=== PATIENT | female | born 1950 | race Caucasian/White ===

== ENCOUNTER 2017-06-27 09:38 | Emergency (ER) | payer MEDICARE, OTHER ==
--- OUTSIDE RECORDS SUMMARY | 2017-06-27 10:03 | XMS REPORT ---
:1950 External Reference #:[id number] Author Organization [facility] Address [address] [place] [address] Phone [phone] Care Team Providers Name Role Phone Elise Horton MD Care Team Information Product Planner Unavailable Elise Horton MD Primary Care Physician Unavailable Payers Type Date Identification Numbers Payment Provider Subscriber Medicare Primary Policy Number: [id number] [employer] [place] Vikki Jaime PayID: [id number] [place] [address] Commercial Policy Number: [id number] [facility] Vikki Jaime PayID: [id number] [address] [place] [address] Problems Date Description Provider Status Onset: 12/06/2016 Mild intermittent asthma Adela Melton Fenstermacher, Active RPA-C Onset: 02/07/2016 Exacerbation of intermittent Adela Souzastermacher, Active asthma RPA-C Onset: 10/15/2015 Chronic allergic conjunctivitis Adela Melton Fenstermacher, Active RPA-C Onset: 04/16/2015 Mild intermittent asthma, Adela SDenzel Fenstermacher, Active uncomplicated RPA-C Onset: 04/16/2015 Allergic rhinitis Adela Melton Fenstermacher, Active RPA-C Onset: 04/16/2015 Allergic rhinitis due to pollen Adela Maravillaermachewilton, Active RPA-C Family History Date Family Member(s) Problem(s) Comments General Unknown Social History Type Date Description Comments Smoking Patient has never smoked Allergies, Adverse Reactions, Alerts Date Description Reaction Status Severity Comments 10/15/2015 Lotemax active 06/06/2017 Zycor active gives pt leg cramps 12/23/2012 NKDA inactive Medications Medication Date Status Form Strength Qnty SIG Indications Ordering Provider Nasacort Allergy 06/06 Active Aerosol 55mcg/Act 1bott [place] 2 J30.89 Christopher 24H le sprays in Davon Thompson MD each nostril once daily. Pazeo 10/16 Active Solution 0.7% 2.5un Instill 1 its Drop Into Davon Thompson MD The Affected Eye(S) Once Daily as Needed as Directed Levocetirizine 04/16 Active Tablets 5mg 90tab Take One J30.1 Christopher Dihydrochloride /2014 s Tablet By Davon Thompson MD Mouth At Bedtime as Needed Asmanex HFA 04/16 Active Aerosol 100mcg/Ac 13uni Inhale J45.20 t ts Two Puffs Davon Thompson MD By Mouth Twice A Day Montelukast 04/16 Active Tablets 10mg 90tab Take One J30.1 opher Sodium s Tablet By Davon Thompson MD Mouth Every Evening Levothyroxine Active Unknown Sodium /0000 Eye Wash Active Solution Unknown /0000 Acyclovir Active Capsules 200mg take 2 Unknown /0000 capsule by mouth 3 times a day as needed Zovirax Active Cream 5% Unknown /0000 Preser Vision Active Unknown /0000 Vitamin D3 Active Chewtabs 2000Unit once Unknown /0000 daily Lysine HCL Active Tablets 1000mg Unknown /0000 Zinc Active Tablets 50mg Unknown /0000 Vitamin C Active Tablets 1000mg 1 by Unknown /0000 mouth every day Medrol 02/14 Hx TBPK 4mg 21uni take as ts directed Davon Thompson MD - 06/06 Tessalon Perlankush 07/24 Hx Capsules 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 Take with food. Prednisone 02/06 Hx Tablets 5mg 100ta Follow J45.21 bs taper as Davon Thompson MD - directed 05/17 Tessalon 02/06 Hx Capsules 200mg 30cap Swallow J45.21 s whole one Davon Thompson MD - capsule 05/17 by mouth 3x daily Zithromax Z-Sreedhar 02/06 Hx Tablets 250mg 1Pak Take as J45.21 directed Davon Thompson MD - 05/17 Prednisone 01/31 Hx Tablets 10mg 30tab Take 3 s tablets Davon Thompson MD - by mouth 02/06 twice a day for 5 days. Take with food. Pataday 01/31 Hx Solution 0.2% 1bott Instill le one drop Davon Thompson MD - into both 07/24 eyes once daily as needed Pataday 10/14 Hx Solution 0.2% 1bott Instill H10.45 le one drop Davon Thompson MD - into both 10/14 eyes once daily as needed Pazeo 10/14 Hx Solution 0.7% 1unit Instill 1 H10.45 s drop into Davon Thompson MD - affected 02/06 eye(s) by ophthalmi c route once daily as needed 04/16 Hx Solution 0.2% 1unit Instill s 1-2 drops Davon Thompson MD - into 10/14 affected eye(s) once daily as needed Levocetirizine 03/29 Hx Tablets 5mg 90tab Take One Adela SDenzel Dihydrochloride s Tablet By Fenstermache - Mouth At r, RPA-C 04/16 Bedtime as Needed Montelukast 00 Hx Tablets 10mg 90tab 1 take opher Sodium / s one Davon Thompson MD - tablet by 04/16 mouth daily in the evening Acyclovir 00/00 Hx Unknown /0000 - 02/06 Zovirax 00/ Hx Unknown /0000 - 02/06 Levothyroxine 00 Hx Tablets 75mcg Unknown Sodium / - 02/06 Genteal Mild Hx Solution 0.2% Unknown / - 07/24 Stool Softener Hx Tablets 8.6-50mg take 2 Unknown Laxative / tablets - by oral 07/24 route /2016 once daily Proair HFA Hx Aerosol 108(90Bas 8.500 2 puffs Christopher /0000 e) gm every 4 Davon Thompson MD - mcg/Act as needed 12/05 Qvar Hx Aerosol 80mcg/Act inhale 2 Unknown puffs by - inhalatio 10/14 n route times per day Estring Hx Ring 2mg insert 1 vaginal - ring by 02/06 vaginal route every 90 days Tylenol With Hx Tablets 300-30mg as needed Unknown Codeine #3 - 07/24 Moxifloxacin HCL Hx Tablets 400mg one Christoph tablet by Davon Thompson MD - mouth 06/06 every day /2017 x 14 days Acidophilus Hx Capsules 100mg Unknown Probiotic / - 06/06 Fluticasone Hx Suspension 50mcg/Act 16gm Inhale Christopher Propionate /0000 Two Davon Thompson MD - Sprays In 06/06 Nostril Every Day Vital Signs Date Vital Result Comment 06/06/2017 Height 66 inches 5'6" Weight 147.00 lb BMI (Body Mass Index) 23.7 kg/m2 Heart Rate 79 /min Respiratory Rate 16 /min Body Temperature 96.9 F O2 % BldC Oximetry 95 % 12/06/2016 Height 66 inches 5'6" Weight 149.00 lb BMI (Body Mass Index) 24.0 kg/m2 Heart Rate 82 /min Respiratory Rate 16 /min Body Temperature 97.0 F O2 % BldC Oximetry 98 % 07/24/2016 BP Systolic 140 mmHg BP Diastolic 80 mmHg Height 66 inches 5'6" Weight 157.00 lb BMI (Body Mass Index) 25.3 kg/m2 Heart Rate 114 /min Respiratory Rate 22 /min Body Temperature 99.2 F O2 % BldC Oximetry 98 % 05/17/2016 BP Systolic 126 mmHg BP Diastolic 74 mmHg Height 66.5 inches 5'6.50" Weight 157.00 lb BMI (Body Mass Index) 25.0 kg/m2 Heart Rate 65 /min Respiratory Rate 11 /min Body Temperature 97.3 F O2 % BldC Oximetry 98 % 02/07/2016 BP Systolic 167 mmHg BP Diastolic 81 mmHg Height 66 inches 5'6" Weight 153.00 lb BMI (Body Mass Index) 24.7 kg/m2 Heart Rate 76 /min Respiratory Rate 20 /min Body Temperature 98.4 F O2 % BldC Oximetry 98 % 10/15/2015 BP Systolic 122 mmHg BP Diastolic 76 mmHg Height 67 inches 5'7" Weight 150.00 lb BMI (Body Mass Index) 23.5 kg/m2 Heart Rate 92 /min Respiratory Rate 14 /min 04/16/2015 BP Systolic 113 mmHg BP Diastolic 71 mmHg Height 67 inches 5'7" Weight 150.00 lb BMI (Body Mass Index) 23.5 kg/m2 Heart Rate 58 /min Respiratory Rate 16 /min 10/05/2014 BP Systolic 98 mmHg BP Diastolic 61 mmHg Height 67 inches Weight 150.00 lb Heart Rate 61 /min 08/26/2014 BP Systolic 128 mmHg BP Diastolic 71 mmHg Height 67 inches Weight 150.00 lb Heart Rate 62 /min Body Temperature 96.7 F O2 % BldC Oximetry 99 % 05/27/2014 BP Systolic 122 mmHg BP Diastolic 80 mmHg Heart Rate 76 /min 04/27/2014 BP Systolic 114 mmHg BP Diastolic 67 mmHg Height 66 inches Weight 150.00 lb Heart Rate 81 /min 10/22/2013 BP Systolic 118 mmHg BP Diastolic 80 mmHg Heart Rate 64 /min 03/21/2013 BP Systolic 110 mmHg BP Diastolic 76 mmHg Heart Rate 76 /min 09/25/2012 BP Systolic 106 mmHg BP Diastolic 78 mmHg Height 66 inches Weight 145.00 lb 09/25/2012 Heart Rate 80 /min Results Test Date Test Result H/L Range Note Order 06/06/2017 Nitric Oxide <pending> PFT Supplies <pending> PFT With Bronchodilator <pending> Procedures Date CPT Code Description Status 06/06/2017 07593 Nitric Oxide Gas Determination Completed 06/06/2017 16116 Bronchodilation Responsiveness Spirometry Pre/Post Completed Bronchodil Adm 05/10/2017 02102 Allergy Antigens Single Or Multiple Completed 12/15/2016 26002 Allergy Antigens Single Or Multiple Completed 12/06/2016 00766 Nitric Oxide Gas Determination Completed 12/06/2016 13973 Bronchodilation Responsiveness Spirometry Pre/Post Completed Bronchodil Adm 07/07/2016 34430 Allergy Antigens Single Or Multiple Completed 05/17/2016 62513 Bronchodilation Responsiveness Spirometry Pre/Post Completed Bronchodil Adm 10/18/2015 68320 Allergy Antigens Single Or Multiple Completed 07/09/2015 40057 Allergy Antigens Single Or Multiple Completed 04/16/2015 74882 Bronchodilation Responsiveness Spirometry Pre/Post Completed Bronchodil Adm Encounters Type Date Location Provider CPT E/M Dx Office Visit 06/06/2017 2:00p Boeluskinza Dubose RPA-Tosin 06621 J45.20 J30.1 J30.89 H10.45 Office Visit 12/06/2016 2:30p Boeluskinza Dubose RPA-Tosin 61729 J45.20 J30.1 J30.89 H10.45 Office Visit 07/24/2016 10:00a BoelusBoom Alanis RPA-Tosin 88181 J45.31 J06.9 R05 Office Visit 05/17/2016 10:00a Boelus [place] 26772 J45.20 J30.1 J30.89 H10.45 Office Visit 02/07/2016 11:30a Boeluskinza Dubose RPA-Tosin 73369 J45.21 Office Visit 10/15/2015 3:30p Boelus Adela Dubose RPA-Tosin 03793 J30.1 J30.89 H10.45 J45.20 Office Visit 04/16/2015 9:00a Boelus Adela Dubose RPA-Tosin 02415 J30.1 J30.89 J45.20 Plan of Care Future Appointment(s):12/05/2017 10:30 am - PILAR De La Garza at [id number]/06/2017 - Adela Dubose RPA-CJ45.20 Mild intermittent asthma , uncomplicatedComments:Asthma has been stable. Today's PFT is within normal limits. Exhaled nitric oxide level is also normal (13ppb). Continue Asmanex 100mcg as prescribed. Continue Ventolin as needed for breakthrough coughing, wheezing and/or shortness of breath.Follow up:6 months - w/PFT and NIOX prior to libxpB41.1 Allergic rhinitis due to pollenComments:Continue Levocetirizine and Montelukast as prescribed. Patient is experiencing nasal dryness and bleeding. I will have her hold nasal steroids for another week. I have provided sample of Rhinase salinenasal gel to be applied intranasally twice a day. I will give Nasacort in place of Fluticasone and encouraged patient to start with one spray and only increase to two if well tolerated.Follow up:6 months.J30.89 Other allergic rhinitisNew Medication:Nasacort Allergy 24HR 55 mcg/ActComments: I have reviewed environmental controls for house dust and dust mites.Follow up: 6 months.H10.45 Other chronic allergic conjunctivitisComments:Continue Pazeo eye drops as needed for breakthrough eye allergy symptoms.Follow up:6 months.
--- OUTSIDE RECORDS SUMMARY | 2017-06-27 10:03 | XMS REPORT ---
:1950 External Reference #:[id number] Author Organization [facility] Address [address] [place] [address] Phone [phone] Care Team Providers Name Role Phone Elise Prieto M.D. Care Team Information Print Shop Manager Unavailable Payers Type Date Identification Numbers Payment Provider Subscriber Medicare Primary Effective: Policy Number: Medicare - Bswny Enoc Edwards 2016 [id number] [facility] PayID: [id number] [address] [place] [address] [facility] Part B Policy Number: [id number] [facility]ia Edwards Group Name: Jon [address] PayID: [id number] [place] [address] Problems Description No Information Family History Date Family Member(s) Problem(s) Comments Father CAD Father Alzheimer's Disease late 70's Father Cancer, Prostate Mother Osteoporosis no hip fracture, but arm fracture Mother Migraines First Brother CVA First Brother Diabetes borderline Second Brother No Current Problems First Sister Migraines First Sister Hip Replacement Second Sister Hip Replacement Second Sister Obesity had gastric bypass, previously had Diabetes but resolved Paternal Grandfather CAD of AR or CVA in 40's or 50's Paternal Grandmother Alzheimer's Disease possible Maternal Grandfather Diabetes Maternal Grandmother Diverticulitis not sure if other medical problems, in her 70's Maternal Aunts Cancer, Breast maternal great aunt Maternal Aunts Cancer, Lung maternal aunt Social History Type Date Description Comments Pets 1 dog 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 mouth three Blegen, times a day M.D. for 5 days as needed for Outbreak Preservision 07/19 Active Capsules 90cap 1 po bid Elise s Genaro Prieto M.D. Asmanex HFA 03/30 Active Aerosol 100mcg/Ac 2 Puffs Am t And PM, P. rinses Blegen, mouth M.D. afterward Lysine HCL 03/30 Active Tablets 1000mg 1 po qam or bid Genaro Prieto M.D. Zovirax 03/30 Active Cream 5% 10uni Apply 5 ts Times A Day Emiliano For 4 Days CERTIFIED PHYSICAL THERAPIST ASSISTANT-C as Needed For Herpes Rash In Groin Area Levocetirizine Active Tablets 5mg Unknown Dihydrochloride / Montelukast Active Tablets 10mg Unknown Sodium / Pazeo Active Solution 0.7% 1 drop in Unknown /0000 each eye qd- uses prn Levothyroxine Active Tablets 75mcg 30tab Take One Nany Sodium s Tablet By Bandar, Mouth Every M.D., Day R.D. Vitamin D3 Super Active Capsules 2000Unit daily Unknown Strength /0000 Nasacort Allergy Active Aerosol 55mcg/Act 2 sprays in Unknown 24HR /0000 each nostril every day Rhinase Active Gel Unknown /0000 Eye Wash Active Solution 1-3 Times A Unknown Sterile /0000 Day prn Vitamin C Active Tablets 1000mg 1 by mouth Unknown /0000 every day Doxycycline 03/[address] 100mg 2tabs 2 tabs by [id number] Vanessa Hyclate mouth today Emiliano, - CERTIFIED PHYSICAL THERAPIST ASSISTANT-C 06/12 Prednisone 10/11 Hx Tablets 20mg 10tab take 2 tabs s by mouth Emiliano, - every day x CERTIFIED PHYSICAL THERAPIST ASSISTANT-C 12/03 5 days Cephalexin 10/09 Hx Tablets 500mg 21tab take 1 R21 s tablet by Emiliano, - mouth three CERTIFIED PHYSICAL THERAPIST ASSISTANT-C 12/03 times a day x 7 days Bactrim DS 03/28 Hx Tablets 800-160mg 10tab 1 po bid x N39.0 s 5 days Emiliano, - CERTIFIED PHYSICAL THERAPIST ASSISTANT-C 06/22 Mucinex 07/21 Hx Tablets ER 600mg 20tab 1 PO bid J18.9 12HR s For P. - Bronchitis, Blegen, 06/22 With Full M.D. Glass Of Water Azithromycin 07/21 Hx Tablets 250mg 6tabs 2 by mouth J18.9 every day P. - first day Blegen, 06/22 then 1 by M.D. /2016 mouth every day x 4 days Guaifenesin ac 07/19 Hx Syrup 100-10mg/ 120cc 5-10 ML At J06.9 5ML Night as P. - Needed For Blegen, 06/22 Cough- M.D. /2016 Causes Drowsiness Vitamin B-12 03/31 Hx Tablets 1000mcg 1 po qd P. - Blegen, 06/22 M.D. Vitamin C 03/30 Hx Tablets 1000mg 1 po qd to bid P. - Blegen, 06/22 M.D. Vitamin B-12 03/30 Hx Tablets 6000mcg 1 by mouth every day P. - Blegen, 03/31 M.D. Vitamin D3 03/30 Hx Tablets 1000Unit 1-2 po qday P. - Blegen, 06/12 M.D. /2017 Magnesium 03/30 Hx Tablets 500mg 1 po qd P. - Blegen, 06/22 M.D. /2016 Acidophilus 03/30 Hx Tablets 1 Bu qd P. - Blegen, 06/12 M.D. /2017 Calcium 600 03/30 Hx Tablets 600mg 1 po qd P. - Blegen, 06/22 M.D. Genteal Mild 03/30 Hx Solution 0.2% qd to tid prn dry P. - eyes Blegen, 06/12 M.D. Elimite 12/09 Hx Cream 5% 60G apply from head to P. - soles of Blegen, 03/17 feet. wash .. off 8-14 hours later. Mupirocin 11/25 Hx Ointment 2% 22gm apply a 782.9 small Emiliano, - amount to CERTIFIED PHYSICAL THERAPIST ASSISTANT-C 03/30 area(s) daily Benzonatate 11/25 Hx Capsules 200mg 30cap 1 by mouth 786.2 s three times Emiliano, - a day CERTIFIED PHYSICAL THERAPIST ASSISTANT-C 03/30 Azithromycin 04/18 Hx Tablets 250mg 6tabs 2 by mouth 466.0 Janette /2014 every day x K.W. - 1 day, then Teodoro, 05/02 1 by mouth M.D. every day Benzonatate 04/16 Hx Capsules 100mg 60cap 1 or 2 by 466.0 Shawnt s mouth three Irasema Rivera, - times a day CERTIFIED PHYSICAL THERAPIST ASSISTANT-C 05/02 as needed cough Proair HFA 04/14 Hx Aerosol 108(90Bas 8.500 2 puffs 466.0 e) gm every 4-6 Irasema Rivera, - mcg/Act hours as CERTIFIED PHYSICAL THERAPIST ASSISTANT-C 06/12 needed wheezing or shortness of breath Prednisone 04/14 Hx Tablets 50mg 5tabs one pill by 466.0 wnt mouth daily Irasema Rivera, - for 5 days CERTIFIED PHYSICAL THERAPIST ASSISTANT-C 04/24 for breathing Benzonatate 04/14 Hx Capsules 100mg 30cap 1 by mouth 466.0 Shawnt s three times Irasema Rivera, - a day as CERTIFIED PHYSICAL THERAPIST ASSISTANT-C 04/16 needed cough Asmanex 04/14 Hx Aerosol 220mcg/In 1unit 1 puff 466.0 Shawnti Twisthaler h s daily for Irasema Rivera, Metered Doses - breathing CERTIFIED PHYSICAL THERAPIST ASSISTANT-C 05/02 Valacyclovir HCL 02/26 Hx Tablets 1gm 21tab 1 by mouth 053.9 s three times Irasema Rivera, - daily for 7 CERTIFIED PHYSICAL THERAPIST ASSISTANT-C Bactrim DS 05/14 Hx Tablets 800-160mg 14tab 1 po bid x s 7 days P. - Blegen, 03/03 M.D. Zithromax 02/03 Hx Tablets 500mg 3tabs 1 qd x 3 Katelin Tri-Sreedhar days september A. - repeat Bud, 03/18 after 10 F.N.P.C. days if sx persist Amoxicillin 08/08 Hx Tablets 500mg 20tab One Tablet s Two Times A K.W. - Day For 10 Teodoro, 10/14 Days M.D. Augmentin 06/28 Hx Tablets 875mg 20tab one po bid 382.9 s for otitis R. Miguel, - media CERTIFIED PHYSICAL THERAPIST ASSISTANT-C 10/14 Augmentin 02/21 Hx Tablets 875mg 24tab one pill s twice daily Irasema Rivera, - with food CERTIFIED PHYSICAL THERAPIST ASSISTANT-C 06/28 for sinus infection Amoxicillin 11/07 Hx Tablets 500mg 30tab 1 po tid x s 10 days P. - Blegen, 02/21 M.D. Augmentin 07/07 Hx Tablets 500mg;125 20tab one po bid mg s for 10 days P. - Blegen, 11/07 M.D. Docusate Sodium 07/07 Hx Tablets 200mg prn P. - Blegen, 06/12 M.D. /2017 Testosterone 07/07 Hx Cream P. - Blegen, 03/18 M.D. Macrobid 06/17 Hx Capsules 100mg 14cap one bid x7 s days with K.W. - food for Teodoro, 07/07 UTI M.D. /2006 Lidex 02/01 Hx Cream 0.05% 30gm apply to Vanessa affected Veronique, - areas bid M.D. 03/30 Patanol 12/24 Hx Solution 0.1% 5ml One To Two 372.30 gtts OU bid K.WDenzel - roberta Valerio, 03/30 Allergic M.D. Conjunctivi tis Cephalexin 12/17 Hx Capsules 500mg 14cap one tab bid Vanessa mag Piper - M.D. 07/07 Prometrium Hx Capsules ?Dose Unknown / - 03/30 Acyclovir Hx Capsules 400mg 15cap 1 by mouth Elise / s three times P. - a day x 5 Blegen, 02/14 days as M.D. /2016 needed outbreak Rosetta Hx Tablets 180mg 1 PO qd Unknown / - 05/02 Nasonex Hx Unknown / - 05/02 Estradiol/ Hx Unknown Progesterone / Vaginal Cream - 03/30 Vivelle-Dot Hx Patches use patch Unknown twice - weekly 03/30 Fluticasone Hx Suspension 50mcg/Act 2 sprays in Unknown Propionate / each - nostril 06/12 twice daily /2017 Symbicort Hx Aerosol 160-4.5mc Unknown / g/Act - 11/06 Qvar Hx Aerosol 80mcg/Act Unknown - 03/30 Osphena Hx Tablets 60mg Diaz /MD Philipp, - Tsering 07/19 Progesterone Hx Capsules 100mg Diaz Fraser /MD Philipp, - Tsering 07/19 Pataday Hx Solution 0.2% eye drops Jay, 1-2 drops Kang sanchez MD 06/12 allergic eye sx Estring Hx Ring 2mg Unknown - 03/30 Prednisone Hx Tablets 5mg Take 6 Unknown / Tablets - Daily For 3 06/12 Days. /2018 Immunizations CPT Code Status Date Vaccine Lot # [id number] Given 02/22/2017 Influenza Vaccine High Dose PF [id number] 82847 Given 04/13/2016 Pneumovax 23 (PPSV23) 65+ years or high risk 2 to [id number] 65 year old 74793 Given 03/13/2016 Influenza Virus Vaccine, Quadrivalent, 3 Yr > [id number] Quad, Preserv Free 22376 Given 04/14/2015 Prevnar-13 Pneumococcal Conjugate Vaccine [id number] 98938 Given 03/30/2015 Tdap (Adacel) [id number] 90827 Given 02/26/2015 Influenza Virus Vaccine, Quadrivalent, 3 Yr > [id number] Quad, Preserv Free 55363 Given 01/14/2015 Zoster Vaccine [id number] 18617 Given 03/24/2014 Influenza Virus Vaccine, Quadrivalent, 3 Yr > [id number] Quad, Preserv Free 43562 Given 03/13/2012 Influenza Vaccine-Preservative Free 3 Yrs And [id number] Above 30372 Given 02/27/2011 Zoster Vaccine [id number] 67389 Given 09/04/2010 Influenza Vaccine-Preservative Free 3 Yrs And Above Vital Signs Date Vital Result Comment 06/12/2017 BP Systolic 130 mmHg BP Diastolic 62 mmHg Heart Rate 64 /min Body Temperature 98.2 F 03/28/2017 BP Systolic 100 mmHg BP Diastolic 70 mmHg Heart Rate 88 /min Body Temperature 98.5 F Respiratory Rate 14 /min 10/09/2016 Weight 150.00 lb Weight in kg's 68.040 BP Systolic 120 mmHg BP Diastolic 70 mmHg Heart Rate 74 /min Body Temperature 98.5 F Respiratory Rate 16 /min O2 % BldC Oximetry 98 % 06/22/2016 Weight 156.00 lb Weight in kg's 70.762 BP Systolic 114 mmHg BP Diastolic 78 mmHg Heart Rate 68 /min Body Temperature 97.4 F Respiratory Rate 16 /min Height 66 inches 5'6" BMI (Body Mass Index) 25.2 kg/m2 Right Visual Acuity Distance 20/50 corrected Left Visual Acuity Distance 20/50 corrected Both Visual Acuity Distance 20/25 corrected O2 % BldC Oximetry 99 % 03/28/2016 BP Systolic 126 mmHg BP Diastolic 72 mmHg Heart Rate 76 /min Body Temperature 97.9 F Respiratory Rate 18 /min 11/09/2015 Weight 158.00 lb Weight in kg's 71.669 BP Systolic 120 mmHg BP Diastolic 60 mmHg Body Temperature 98.6 F 09/02/2015 BP Systolic 120 mmHg BP Diastolic 68 mmHg Heart Rate 80 /min Body Temperature 98.1 F 07/21/2015 Weight 157.00 lb Weight in kg's 71.215 BP Systolic 120 mmHg BP Diastolic 75 mmHg Heart Rate 84 /min Body Temperature 99.1 F O2 % BldC Oximetry 98 % 07/19/2015 Weight 160.00 lb Weight in kg's 72.576 BP Systolic 90 mmHg BP Diastolic 52 mmHg Heart Rate 89 /min Body Temperature 100.2 F O2 % BldC Oximetry 97 % 03/30/2015 Weight 152.00 lb Weight in kg's 68.947 BP Systolic 118 mmHg BP Diastolic 64 mmHg Heart Rate 66 /min Height 66 inches 5'6" BMI (Body Mass Index) 24.5 kg/m2 11/25/2014 Weight 153.00 lb Weight in kg's 69.401 BP Systolic 140 mmHg BP Diastolic 74 mmHg Heart Rate 64 /min 11/11/2014 Weight 152.00 lb Weight in kg's 68.947 BP Systolic 120 mmHg BP Diastolic 60 mmHg Heart Rate 72 /min 11/06/2014 Weight 153.00 lb Weight in kg's 69.401 BP Systolic 140 mmHg BP Diastolic 70 mmHg Heart Rate 72 /min Body Temperature 97.4 F O2 % BldC Oximetry 98 % 04/18/2014 Weight 154.00 lb Weight in kg's 69.854 BP Systolic 124 mmHg BP Diastolic 70 mmHg Heart Rate 84 /min Body Temperature 98.2 F O2 % BldC Oximetry 97 % 04/14/2014 Weight 154.00 lb Weight in kg's 69.854 BP Systolic 110 mmHg BP Diastolic 70 mmHg Heart Rate 115 /min Body Temperature 98.6 F O2 % BldC Oximetry 98 % 02/26/2014 Weight 151.00 lb Weight in kg's 68.494 BP Systolic 128 mmHg BP Diastolic 78 mmHg Heart Rate 72 /min 06/16/2013 Weight 155.00 lb w/boots Weight in kg's 70.308 BP Systolic 100 mmHg BP Diastolic 58 mmHg Heart Rate 56 /min Body Temperature 100.4 F 02/24/2013 Weight 149.00 lb Weight in kg's 67.586 BP Systolic 112 mmHg BP Diastolic 60 mmHg Heart Rate 84 /min Body Temperature 98.3 F 05/14/2010 Weight 154.00 lb w/shoes Weight in kg's 69.854 BP Systolic 122 mmHg BP Diastolic 70 mmHg Heart Rate 88 /min Body Temperature 98.5 F 07/03/2009 Weight 150.00 lb Weight in kg's 68.040 BP Systolic 94 mmHg BP Diastolic 60 mmHg Heart Rate 76 /min Body Temperature 98.2 F 06/08/2009 Weight 150.00 lb Weight in kg's 68.040 BP Systolic 110 mmHg BP Diastolic 70 mmHg Heart Rate 96 /min 01/28/2009 Weight 138.00 lb Weight in kg's 62.597 BP Systolic 122 mmHg BP Diastolic 80 mmHg Heart Rate 68 /min Body Temperature 98.4 F 06/28/2007 Weight 136.00 lb Weight in kg's 61.690 BP Systolic 120 mmHg BP Diastolic 60 mmHg Heart Rate 68 /min Body Temperature 97.0 F Oral 11/24/2006 Weight 141.50 lb Weight in kg's 64.184 BP Systolic 120 mmHg BP Diastolic 60 mmHg Body Temperature 98.9 F 11/07/2006 Weight 140.50 lb Weight in kg's 63.731 BP Systolic 120 mmHg BP Diastolic 60 mmHg Heart Rate 88 /min Body Temperature 100.2 F oral 07/07/2006 BP Systolic 120 mmHg BP Diastolic 68 mmHg Heart Rate 64 /min Body Temperature 97.2 F Oral 11/04/2004 Weight 153.00 lb Weight in kg's 69.401 BP Systolic 120 mmHg BP Diastolic 70 mmHg Heart Rate 68 /min 06/18/2004 Weight 163.00 lb Weight in kg's 73.937 Body Temperature 96.5 F 02/02/2004 Weight 162.00 lb Weight in kg's 73.483 BP Systolic 134 mmHg BP Diastolic 82 mmHg Heart Rate 77 /min 01/22/2003 Weight 160.00 lb Weight in kg's 72.576 BP Systolic 112 mmHg BP Diastolic 60 mmHg Body Temperature 97.9 F 12/24/2002 Weight 160.00 lb Weight in kg's 72.576 BP Systolic 120 mmHg BP Diastolic 64 mmHg Body Temperature 97.8 F 11/19/2002 Weight 163.00 lb Weight in kg's 73.937 BP Systolic 110 mmHg BP Diastolic 72 mmHg Heart Rate 76 /min 12/17/2001 Weight 158.00 lb BP Systolic 100 mmHg BP Diastolic 60 mmHg Body Temperature 98.4 F 09/03/2001 Weight 157.00 lb BP Systolic 102 mmHg BP Diastolic 62 mmHg Heart Rate 68 /min Body Temperature 98.0 F Respiratory Rate 18 /min Results Test Date Test Result H/L Range Note Urine DIP 06/12/2017 Leukocytes neg Neg Urine Nitrites neg Neg Urobilinogen norm Norm Total Protein, Urine n eg Neg Urine pH 8 High 5-6 Specific [place] 1.000 Low 1.01-1.02 Urine Ketones neg Neg Urine Bilirubin neg Neg Urine Glucose norm Norm Comp Metabolic Panel 06/12/2017 Sodium 139 mmol/L 133-145 Potassium 4.3 mmol/L 3.5-5.0 Chloride 102 mmol/L 101-111 Co2 Carbon Dioxide 32 mmol/L 22-32 Anion Gap 5 mmol/L 2-11 Glucose 86 mg/dL 70-100 Blood Urea Nitrogen 15 mg/dL 6-24 Creatinine 0.65 mg/dL 0.51-0.95 BUN/Creatinine Ratio 23.1 High 8-20 Calcium 10.0 mg/dL 8.6-10.3 Total Protein 6.6 g/dL 6.4-8.9 Albumin 4.4 g/dL 3.2-5.2 Globulin 2.2 g/dL 2-4 Albumin/Globulin Ratio 2.0 1-3 Total Bilirubin 0.30 mg/dL 0.2-1.0 Alkaline Phosphatase 63 U/L 34-104 Alt 18 U/L 7-52 Ast 20 U/L 13-39 Egfr Non- 91.2 >60 Egfr 117.3 >60 1 Laboratory test finding 06/12/2017 TSH (Thyroid Stim Horm) 1.33 mcIU/mL 0.34-5.60 2 Free T4 (Free Thyroxine) 0.91 ng/dL 0.61-1.12 3 Magnesium 2.1 mg/dL 1.9-2.7 4 CBC Auto Diff 06/12/2017 White Blood Count 6.7 10^3/uL 3.5-10.8 Red Blood Count 4.42 10^6/uL 4.0-5.4 Hemoglobin 13.6 g/dL 12.0-16.0 Hematocrit 40 % 35-47 Mean Corpuscular Volume 91 fL 80-97 Mean Corpuscular Hemoglobin 31 pg 27-31 Mean Corpuscular HGB Conc 34 g/dL 31-36 Red Cell Distribution Width 13 % 10.5-15 Platelet Count 270 10^3/uL 150-450 Mean Platelet Volume 9 um3 7.4-10.4 Abs Neutrophils 4.1 10^3/uL 1.5-7.7 Abs Lymphocytes 1.9 10^3/uL 1.0-4.8 Abs Monocytes 0.5 10^3/uL 0-0.8 Abs Eosinophils 0.1 10^3/uL 0-0.6 Abs Basophils 0.1 10^3/uL 0-0.2 Abs Nucleated RBC 0 10^3/uL Granulocyte % 61.2 % 38-83 Lymphocyte % 28.3 % 25-47 Monocyte % 7.6 % 1-9 Eosinophil % 1.8 % 0-6 Basophil % 1.1 % 0-2 Nucleated Red Blood Cells % 0 Laboratory test finding 06/12/2017 Hepatitis C Antibody Nonreactive Nonreactive 5 Lyme Western Blot 06/12/2017 Lyme Disease IgG Ab WB Negative Negative Lyme Disease IgG Bands Present p41, kDa Lyme Disease IgM Ab WB Negative Negative Lyme Disease IgM Bands Present p41, kDa Lyme Disease Interpretation See Comment 6 Laboratory test 10/09/2016 Wound Culture/Sensi SEE RESULT BELOW 7 finding Laboratory test 06/22/2016 TSH (Thyroid Stim Horm) 1.14 mcIU/mL 0.34- 5.60 8 finding Vitamin D Total 25(Oh) 38.2 ng/mL 30-50 9 Comp Metabolic Panel 06/22/2016 Sodium 137 mmol/L 133-145 Potassium 4.5 mmol/L 3.5-5.0 Chloride 100 mmol/L Low 101-111 Co2 Carbon Dioxide 28 mmol/L 22-32 Anion Gap 9 mmol/L 2-11 Glucose 89 mg/dL 70-100 Blood Urea Nitrogen 18 mg/dL 6-24 Creatinine 0.63 mg/dL 0.51-0.95 BUN/Creatinine Ratio 28.6 High 8-20 Calcium 10.1 mg/dL 8.6-10.3 Total Protein 7.1 g/dL 6.4-8.9 Albumin 4.7 g/dL 3.2-5.2 Globulin 2.4 g/dL 2-4 Albumin/Globulin Ratio 2.0 1-3 Total Bilirubin 0.60 mg/dL 0.2-1.0 Alkaline Phosphatase 71 U/L 34-104 Alt 19 U/L 7-52 Ast 22 U/L 13-39 Egfr Non- 94.8 >60 Egfr 122.0 >60 10 Urine DIP 03/28/2016 Leukocytes ++ Neg Urine Nitrites NEG Neg Urobilinogen NORM Norm Total Protein, Urine NEG Neg Urine pH 8 High 5-6 Urine Blood 250 High Neg Specific [place] 1.005 Low 1.01-1.02 Urine Ketones NEG Neg Urine Bilirubin NEG Neg Urine Glucose NORM Norm Laboratory test finding 03/28/2016 Urine Culture And SEE RESULT BELOW 11 Sensitivities Connective Tissue Panel 11/19/2015 Anti-Nuclear Antibody 0.1 U 12 Cyclic Citrullinated Peptide <15.6 U 13 Interpretation See Comment 14 Laboratory test finding 11/19/2015 Rheumatoid Factor <15 IU/mL <15 15 Vitamin D Total 25(Oh) 44.3 ng/mL 30-50 16 Vitamin B12 875 pg/mL 180-914 17 CBC Auto Diff 11/09/2015 White Blood Count 6.0 10^3/uL 3.5-10.8 Red Blood Count 4.27 10^6/uL 4.0-5.4 Hemoglobin 12.9 g/dL 12.0-16.0 Hematocrit 39 % 35-47 Mean Corpuscular Volume 90 fL 80-97 Mean Corpuscular Hemoglobin 30 pg 27-31 Mean Corpuscular HGB Conc 33 g/dL 31-36 Red Cell Distribution Width 13 % 10.5-15 Platelet Count 256 10^3/uL 150-450 Mean Platelet Volume 10 um3 7.4-10.4 Abs Neutrophils 3.6 10^3/uL 1.5-7.7 Abs Lymphocytes 1.6 10^3/uL 1.0-4.8 Abs Monocytes 0.6 10^3/uL 0-0.8 Abs Eosinophils 0.1 10^3/uL 0-0.6 Abs Basophils 0.1 10^3/uL 0-0.2 Abs Nucleated RBC 0 10^3/uL Granulocyte % 60.6 % 38-83 Lymphocyte % 27.0 % 25-47 Monocyte % 9.2 % High 1-9 Eosinophil % 1.9 % 0-6 Basophil % 1.3 % 0-2 Nucleated Red Blood Cells % 0.1 Comp Metabolic Panel 11/09/2015 Sodium 138 mmol/L 133-145 Potassium 4.4 mmol/L 3.5-5.0 Chloride 103 mmol/L 101-111 Co2 Carbon Dioxide 29 mmol/L 22-32 Anion Gap 6 mmol/L 2-11 Glucose 88 mg/dL 70-100 Blood Urea Nitrogen 19 mg/dL 6-24 Creatinine 0.79 mg/dL 0.51-0.95 BUN/Creatinine Ratio 24.1 High 8-20 Calcium 9.8 mg/dL 8.6-10.3 Total Protein 6.6 g/dL 6.4-8.9 Albumin 4.5 g/dL 3.2-5.2 Globulin 2.1 g/dL 2-4 Albumin/Globulin Ratio 2.1 1-3 Total Bilirubin 0.40 mg/dL 0.2-1.0 Alkaline Phosphatase 68 U/L 34-104 Alt 16 U/L 7-52 Ast 20 U/L 13-39 Egfr Non- 73.3 >60 Egfr 94.2 >60 18 Lyme Western Blot 11/09/2015 Lyme Disease IgG Ab WB Negative Negative Lyme Disease IgG Bands Present p41, kDa Lyme Disease IgM Ab WB Negative Negative Lyme Disease IgM Bands Present No bands detecte <SEE NOTE> kDa 19 Lyme Disease Interpretation See Comment 20 Laboratory test finding 11/09/2015 TSH (Thyroid Stim Horm) 2.69 ?IU/mL 0.34-5.60 21 Vitamin D, 1,25 Dihydroxy 86 pg/mL 18-78 22 C Reactive Protein 8.57 mg/L High < 5.00 23 Flu Test A, B, Or A & B,Binaxn 07/19/2015 Influenza A Antigen neg Influenza B Antigen neg Laboratory test finding 03/30/2015 TSH (Thyroid Stim Horm) 0.90 ?IU/mL 0.34-5.60 24 CBC Auto Diff 03/30/2015 White Blood Count 5.4 10^3/uL 4.8-10.8 Red Blood Count 4.42 10^6/uL 4.0-5.4 Hemoglobin 13.7 g/dL 12.0-16.0 Hematocrit 42 % 35-47 Mean Corpuscular Volume 95 fL 80-97 Mean Corpuscular Hemoglobin 31 pg 27-31 Mean Corpuscular HGB Conc 33 g/dL 31-36 Red Cell Distribution Width 13 % 10.5-15 Platelet Count 272 10^3/uL 150-450 Mean Platelet Volume 9 um3 7.4-10.4 Abs Neutrophils 3.1 10^3/uL 1.5-7.7 Abs Lymphocytes 1.7 10^3/uL 1.0-4.8 Abs Monocytes 0.5 10^3/uL 0-0.8 Abs Eosinophils 0.1 10^3/uL 0-0.6 Abs Basophils 0.1 10^3/uL 0-0.2 Abs Nucleated RBC 0 10^3/uL Granulocyte % 57.3 % 38-83 Lymphocyte % 31.3 % 25-47 Monocyte % 8.5 % 1-9 Eosinophil % 1.7 % 0-6 Basophil % 1.2 % 0-2 Nucleated Red Blood Cells % 0 Comp Metabolic Panel 03/30/2015 Sodium 138 mmol/L 133-145 Potassium 4.3 mmol/L 3.5-5.0 Chloride 102 mmol/L 101-111 Co2 Carbon Dioxide 31 mmol/L 22-32 Anion Gap 5 mmol/L 2-11 Glucose 83 mg/dL 70-100 Blood Urea Nitrogen 19 mg/dL 6-24 Creatinine 0.76 mg/dL 0.51-0.95 BUN/Creatinine Ratio 25.0 High 8-20 Calcium 10.0 mg/dL 8.6-10.3 Total Protein 6.7 g/dL 6.4-8.9 Albumin 4.6 g/dL 3.2-5.2 Globulin 2.1 g/dL 2-4 Albumin/Globulin Ratio 2.2 1-3 Total Bilirubin 0.60 mg/dL 0.2-1.0 Alkaline Phosphatase 59 U/L 34-104 Alt 13 U/L 7-52 Ast 19 U/L 13-39 Egfr Non- 76.6 >60 Egfr 98.5 >60 25 Laboratory test finding 03/30/2015 Magnesium 2.0 mg/dL 1.9-2.7 26 Vitamin D Total 25(Oh) 43.7 ng/mL 30-50 27 Vitamin B12 668 pg/mL 180-914 28 Lipid Profile (Trig/Chol/HDL) 03/30/2015 Triglycerides 75 mg/dL 29 Cholesterol 207 mg/dL 30 HDL Cholesterol 72.9 mg/dL 31 LDL Cholesterol 119 mg/dL 32 CBC Auto Diff 03/27/2014 White Blood Count 4.6 10^3/uL Low 4.8-10.8 33 Red Blood Count 4.17 10^6/uL 4.0-5.4 33 Hemoglobin 13.1 g/dL 12.0-16.0 33 Hematocrit 39 % 35-47 33 Mean Corpuscular Volume 94 fL 80-97 33 Mean Corpuscular Hemoglobin 32 pg High 27-31 33 Mean Corpuscular HGB Conc 34 g/dL 31-36 33 Red Cell Distribution Width 13 % 10.5-15 33 Platelet Count 272 10^3/uL 150-450 33 Mean Platelet Volume 9 um3 7.4-10.4 33 Abs Neutrophils 2.6 10^3/uL 1.5-7.7 33 Abs Lymphocytes 1.4 10^3/uL 1.0-4.8 33 Abs Monocytes 0.4 10^3/uL 0-0.8 33 Abs Eosinophils 0.2 10^3/uL 0-0.6 33 Abs Basophils 0.1 10^3/uL 0-0.2 33 Abs Nucleated RBC 0 10^3/uL 33 Granulocyte % 57.2 % 38-83 33 Lymphocyte % 29.8 % 25-47 33 Monocyte % 7.9 % 1-9 33 Eosinophil % 3.4 % 0-6 33 Basophil % 1.7 % 0-2 33 Nucleated Red Blood Cells % 0 33 Laboratory test 03/27/2014 TSH (Thyroid 2.15 IU/mL 0.34-5.60 33, 34 finding Stimulating Horm) Dhea Sulfate <15.0 g/dL <15-157 33, 35 Estradiol < 20.000 pg/mL 33, 36 Insulin Level 4.8 mcIU/mL 2.6 - 24.9 33, 37 Progesterone 1.3 ng/mL 33, 38 Testosterone Free & 03/27/2014 Free Testosterone ng/dl 0.2 ng/dL 0.3- 1.9 33, 39 Total Testosterone 15 ng/dL 8-60 33, 40 Laboratory test finding 03/27/2014 Free T3 2.40 pg/mL Low 2.5-3.9 33, 41 Free T4 0.95 ng/mL 0.61-1.12 33, 42 Vitamin D, 25 Hydroxy 03/27/2014 25-Hydroxy Vitamin D2 <4.0 ng/mL 33 25-Hydroxy Vitamin D3 41 ng/mL 33 25-Hydroxy Vitamin D Total 41 ng/mL 33, 43 Laboratory test finding 06/13/2012 TSH (Thyroid Stimulating 1.49 miu/mL 0.34-5.60 44 Horm) Free T4 1.17 ng/mL 0.61-1.24 45 Free T3 2.94 pg/mL 2.39-6.79 46 Vitamin D, 25 Hydroxy 06/13/2012 25-Hydroxy Vitamin D2 <4.0 ng/mL 25-Hydroxy Vitamin D3 38 ng/mL 25-Hydroxy Vitamin D Total 38 ng/mL 47 Laboratory test finding 03/03/2011 TSH 0.78 MIU/ML 0.34-5.60 Thyroxine Free 0.90 ng/dL 0.61-1.24 CBC Auto Diff 08/13/2010 White Blood Count 6.8 CUMM 4.8-10.8 Red Cell Count 4.38 CUMM 4.2-5.4 Hemoglobin 13.7 g/dL 12.0-16.0 Hematocrit 39 % 35-47 Mean Corpuscular Volume 90 um3 79-97 Mean Corpuscular Hemoglob 31 pg 27-31 Mean Corpuscular HGB Cone 35 g/dL 32-36 Redcell Distribution WDTH 12 % 10.5-15 Platelet Count 285 CUMM 150-450 Mean Platelet Volume 8.5 um3 7.4-10.4 Gran % 64.7 % 38-83 Lymph % 24.3 % Low 25-47 Mononuclear % 6.8 % 1-9 Eosinophil % 3.5 % 0-6 Basophil % 0.7 % 0-2 Abs Lymphs 1.7 1.0-4.8 Abs Mononuclear 0.5 0-0.8 Absolute Neutrophil Count 4.4 1.5-7.7 Abs Eosinophils 0.2 0-0.6 Abs Basophils 0 0-0.2 Comp Metabolic Panel 08/13/2010 Sodium 138 mmol/L 135-145 Potassium 3.9 mmol/L 3.5-5.0 Chloride 104 mmol/L 101-111 Co2 (Carbon Dioxide) 26.0 mmol/L 22-32 Anion Gap 8.0 mmol/L 2-11 48 Glucose 84 mg/dL 70-100 BUN 17 mg/dL 6-24 Creatinine 0.71 mg/dL 0.50-1.40 One Over Creatinine 1.40 BUN/Creatinine Ratio 23.9 High 8-20 Calcium 9.5 mg/dL 8.1-9.9 Total Protein 7.0 GM/DL 6.2-8.1 Albumin 4.0 GM/DL 3.6-5.4 Globulin 3.0 GM/DL 2-4 Albumin/Globulin Ratio 1.3 1-3 Bilirubin Total 0.8 mg/dL 0.4-1.5 49 Alkaline Phosphatase 58 U/L 30-110 Alt (SGPT) 19 U/L 14-54 Ast (Sgot) 29 U/L 12-42 eGFR Non- 84.3 > 60 eGFR 108.4 > 60 50 Laboratory test finding 08/13/2010 Troponin-I 0.01 NG/ML 0-0.06 51 TSH 0.95 MIU/ML 0.34-5.60 Urine Culture & Sensitivi 05/14/2010 Urine Culture Sensitivi NF1 52 Urine DIP 05/14/2010 Leukocytes + Neg Urine Nitrites NEG Neg Urine pH 5 5-6 Total Protein, Urine NEG Neg Urine Glucose NORM Norm Urine Ketones NEG Neg Urobilinogen NORM Norm Urine Bilirubin NEG Neg Urine Blood NEG Neg Specific [place] N/A Low 1.01-1.02 Laboratory test finding 03/18/2010 TSH 0.78 MIU/ML 0.34-5.60 Thyroxine 8.1 g/dL 5-12 T3 Free 2.57 pg/mL 2.39-6.79 CA 125 (Ovarian Cancer Ag) 13.5 U/ML 2.0-35.0 53 Vitamin D, 25 Hydroxy 03/18/2010 25-Hydroxy Vitamin D2 <4.0 ng/mL () 25-Hydroxy Vitamin D3 49 ng/mL () 25-Hydroxy Vitamin D Total 49 ng/mL () 54 Laboratory test finding 03/18/2010 Vitamin D, 1,25 47 pg/mL 18-78 55 Dihydroxy Laboratory test finding 04/16/2009 TSH 1.32 MIU/ML 0.34-5.60 56 Thyroxine Free 0.95 NG/ML 0.61-1.24 56, 57 Vitamin D.25 Hydroxy 04/16/2009 25-Hydroxy Vitamin D2 <4.0 ng/mL () 56 25-Hydroxy Vitamin D3 38 ng/mL () 56 25-Hydroxy Vitamin D Total 38 ng/mL () 56, 58 Laboratory test finding 05/12/2008 Vitamin D, 25 Oh 45.3 ng/mL 32.0- 100.0 59 Laboratory test finding 10/15/2007 Estradiol 40.6 pg/mL 60, 61 Progesterone 7.34 ng/mL 60, 62 Testosterone, Total 28.7 ng/dL 14.0-76.0 60 TSH (Thyrotropin) 1.600 uIU/ml 0.350-5.500 60 T-4 Free 1.3 ng/dL 0.8-1.8 60 Vitamin D, 25 Oh 38.5 ng/mL 32.0-100.0 60, 63 Laboratory test finding 07/15/2007 Vitamin D, 25 Oh 34.0 ng/mL 32.0- 100.0 64, 65 TSH (Thyrotropin) 2.270 uIU/ml 0.350-5.500 64 Estradiol 19.7 pg/mL 64, 66 Progesterone 4.49 ng/mL 64, 67 Free+Total Testosterone 07/15/2007 Testosterone, Total 24.9 ng/dL 14.0- 76.0 64 Sex Hormone Bind Glob 74 nmol/L 18-114 64 Free Testosterone, Calc 2.6 pg/mL 1.8-17.4 64, 68 Testo, Bioavail, Calc 6.0 ng/dL 4.2-41.0 64, 69 CBC 05/23/2007 WBC 5.2 x103 4.3-10.9 70 RBC 4.04 x106 3.80-5.30 70 Hemoglobin 12.5 g/dL 11.8-15.8 70 Hematocrit 37.7 % 35.0-47.0 70 MCV 93.3 fl 82.0-98.0 70 MCH 30.9 pg 27.5-33.5 70 MCHC 33.2 g/dL 32.0-36.0 70 RDW 12.5 % 11.5-14.5 70 Platelet Count 295 x103 130-400 70 MPV 11.1 fl High 6.5-10.5 70 Segmented Neutrophils 54.8 % 44.0-74.0 70 Lymphocytes 30.0 % 15.0-45.0 70 Monocytes 8.8 % 2.0-13.0 70 Eosinophils 5.4 % 0.0-6.0 70 Basophils 1.0 % 0.0-2.0 70 Neutrophil Absolute 2.8 x103 1.4-7.0 70 Lymphocytes Absolute 1.6 x103 1.0-3.4 70 Monocyte Absolute 0.5 x103 0.2-1.0 70 Eosinophil Absolute 0.3 x103 0.0-0.5 70 Basophil Absolute 0.1 x103 0.0-0.2 70 Laboratory test finding 05/23/2007 TSH (Thyrotropin) 1.420 uIU/ml 0.350- 5.500 70 T-4 Free 1.1 ng/dL 0.8-1.8 70 Comprehensive Metabolic 05/23/2007 Glucose 79 mg/dL 70-100 70 BUN 20 mg/dL High 4-18 70 Creatinine, Serum 0.9 mg/dL 0.5-1.2 70 Sodium 140 mmol/L 136-146 70 Potassium 4.5 mmol/L 3.5-5.3 70 Chloride 106 mmol/L 98-110 70 Carbon Dioxide 25 mmol/L 20-32 70 Albumin 4.0 g/dL 3.5-4.7 70 Protein, Total 6.5 g/dL 6.4-8.2 70 Calcium 9.2 mg/dL 8.4-10.4 70 Alkaline Phosphatase 48 U/L 10-118 70 Sgot (Ast) 22 U/L 3-40 70 SGPT (Alt) 17 U/L 7-50 70 Bilirubin, Total 0.40 mg/dL 0.30-1.20 70 Laboratory test 05/23/2007 GFR (Calculated) >60 70, 71 finding Laboratory test 04/23/2007 TSH (Thyrotropin) 4.610 uIU/ml 0.350-5.500 72 finding T-4 Free 1.1 ng/dL 0.8-1.8 72 Comprehensive Metabolic 02/21/2007 Glucose 85 mg/dL 70-100 73 BUN 19 mg/dL High 4-18 73 Creatinine, Serum 0.9 mg/dL 0.5-1.2 73 Sodium 137 mmol/L 136-146 73 Potassium 4.4 mmol/L 3.5-5.3 73 Chloride 101 mmol/L 98-110 73 Carbon Dioxide 27 mmol/L 20-32 73 Albumin 4.6 g/dL 3.5-4.7 73 Protein, Total 7.5 g/dL 6.4-8.2 73 Calcium 10.1 mg/dL 8.4-10.4 73 Alkaline Phosphatase 56 U/L 10-118 73 Sgot (Ast) 23 U/L 3-40 73 SGPT (Alt) 17 U/L 7-50 73 Bilirubin, Total 0.20 mg/dL Low 0.30-1.20 73 CBC 02/21/2007 WBC 6.3 x103 4.3-10.9 73 RBC 4.49 x106 3.80-5.30 73 Hemoglobin 13.8 g/dL 11.8-15.8 73 Hematocrit 40.7 % 35.0-47.0 73 MCV 90.6 fl 82.0-98.0 73 MCH 30.7 pg 27.5-33.5 73 MCHC 33.9 g/dL 32.0-36.0 73 RDW 13.4 % 11.5-14.5 73 Platelet Count 319 x103 130-400 73 MPV 10.9 fl High 6.5-10.5 73 Segmented Neutrophils 54.6 % 44.0-74.0 73 Lymphocytes 30.6 % 15.0-45.0 73 Monocytes 7.8 % 2.0-13.0 73 Eosinophils 5.6 % 0.0-6.0 73 Basophils 1.4 % 0.0-2.0 73 Ig% 0.0 73 Neutrophil Absolute 3.4 x103 1.4-7.0 73 Lymphocytes Absolute 1.9 x103 1.0-3.4 73 Monocyte Absolute 0.5 x103 0.2-1.0 73 Eosinophil Absolute 0.4 x103 0.0-0.5 73 Basophil Absolute 0.1 x103 0.0-0.2 73 Laboratory test finding 02/21/2007 TSH (Thyrotropin) 8.680 uIU/ml High 0.350-5.500 73 T-4 Free 0.9 ng/dL 0.8-1.8 73 GFR (Calculated) >60 73, 74 Laboratory test finding 11/24/2006 Strep Screen NEG Neg Laboratory test finding 11/07/2006 Strep Screen POS Neg Laboratory test finding 07/07/2006 Glucose By Moniter 72 Low 78-110 Urine DIP 06/18/2004 Leukocytes 1+ High Neg Urine Nitrites NEG Neg Urine pH 5 5-6 Total Protein, Urine TRACE Neg Urine Glucose NORM Norm Urine Ketones NEG Neg Urobolinogen NORM Norm Urine Bilirubin NEG Neg Urine Blood OVER 250 Neg Urine DIP 01/22/2003 Leukocytes NEG Neg Urine Nitrites NEG Neg Urine pH 6 5-6 Total Protein, Urine NEG Neg Urine Glucose NORM Norm Urine Ketones NEG Neg Urobolinogen NORM Norm Urine Bilirubin NEG Neg Urine Blood NEG Neg Laboratory test finding 11/19/2002 Hemoglobin A1c 4.8 % 75 TSH (Thyrotropin) 1.85 uIU/ml 0.49 - 4.67 CBC 11/19/2002 WBC 5.8 x10*3 4.3 - 10.9 RBC 4.18 x10*6 3.8 - 5.3 Hemoglobin 13.0 g/dL 11.8 - 15.8 Hematocrit 39.0 % 35.0 - 47.0 MCV 93.1 fl 82.0 - 98.0 MCH 31.1 pg 27.5 - 33.5 MCHC 33.4 g/dL 32.0 - 36.0 RDW 13.0 % 11.5 - 14.5 Platelet Count 286 x10*3 130.0 - 400.0 MPV 8.6 fl 6.5 - 10.5 Segmented Neutrophils 53.8 % 44.0 - 74.0 Lymphocytes 33.9 % 15.0 - 45.0 Monocytes 8.7 % 2.0 - 13.0 Eosinophils 3.2 % 0.0 - 6.0 Basophils 0.4 % 0.0 - 2.0 Neutrophil Absolute 3.1 x10*3 1.4 - 7.0 Lymphocytes Absolute 2.0 x10*3 1.0 - 3.4 Monocyte Absolute 0.5 x10*3 0.2 - 1.0 Eosinophil Absolute 0.2 x10*3 0.0 - 0.5 Basophil Absolute 0.0 x10*3 0.0 - 0.2 Comprehensive Metabolic 11/19/2002 Glucose 74 mg/dL 61.0 - 110.0 BUN 15 mg/dL 4.0 - 18.0 Creatinine, Serum 0.7 mg/dL 0.5 - 1.2 Sodium 138 mmol/L 136.0 - 145.0 Potassium 4.5 mmol/L 3.5 - 5.3 76 Chloride 102 mmol/L 98.0 - 107.0 Carbon Dioxide 28 mmol/L 23.0 - 33.0 Albumin 3.9 g/dL 3.6 - 4.5 Protein, Total 7.2 g/dL 6.2 - 8.0 Calcium 9.3 mg/dL 8.4 - 10.2 Alkaline Phosphatase 57 U/L 42.0 - 127.0 Sgot (Ast) 26 U/L 9.0 - 37.0 SGPT (Alt) 26 U/L 7.0 - 42.0 Bilirubin, Total 0.40 mg/dL 0.2 - 1.3 Laboratory test finding 11/19/2002 Glucose By Moniter 97 78-110 Laboratory test finding 09/20/2001 Urine Culture FINAL 77 Urine DIP 09/20/2001 Leukocytes NEG Neg Urine Nitrites NEG Neg Urine pH 5 5-6 Total Protein, Urine NEG Neg Urine Glucose NORM Norm Urine Ketones NEG Neg Urobolinogen NORM Norm Urine Bilirubin NEG Neg Urine Blood NEG Neg Specific [place] N/ Low 1.01-1.02 1 Because ethnic data is not always readily available, this report includes an eGFR for both -Americans and non- Americans. The National Kidney Disease Education Program (NKDEP) does not endorse the use of the MDRD equation for patients that are not between the ages of 18 and 70, are , have extremes of body size, muscle mass, or nutritional status, or are non- or non-. According to the National Kidney Foundation, irrespective of diagnosis, the stage of the disease is based on the level of kidney function: Stage Description GFR(mL/min/1.73 m(2)) 1 Kidney damage with normal or decreased GFR 90 2 Kidney damage with mild decrease in GFR 60-89 3 Moderate decrease in GFR 30-59 4 Severe decrease in GFR 15-29 5 Kidney failure <15 (or dialysis) 2 [id number] 3 [id number] 4 [id number] 5 [id number] 6 Specific serologic response to B. burgdorferi infection is not detected, but cannot rule out early infection during which low or undetectable antibody levels to B. burgdorferi may be present. If clinically indicated, a new serum specimen should be submitted in 7-14 days. ADDITIONAL INFORMATION CDC criteria require >=5 bands for IgG or >=2 bands for IgM for the Immunoblot to be considered positive. Bands (e.g.,p41) may be detected in patients without Lyme disease, and patterns not meeting the CDC criteria should be interpreted with caution. Immunoblot should be ordered only on specimens that are positive or equivocal by a FDA-licensed Lyme disease antibody screening test (e.g., EIA). Test Performed by: [facility] [email or web address] - [facility] [address] [place] [address] 7 SEE RESULT BELOW Name: ENOC EDWARDS : [address]: Vanessa Kennedy NP Acct: [id number] Unit: [id number] AGE: 66 Location: [facility] Re10/09/16 SEX: F Status: REG REF SPEC: [id number] LOR: 10/09/16 [facility] DR: Vanessa Kennedy NP REQ: [id number] RECD: 10/09/16 STATUS: COMP _ SOURCE: WOUND SPDESC: ORDERED: Culture Stain COMMENTS: [id number] Specimen Description trunk Procedure Result Reported Site Wound/Misc Gram Stain Final 10/10/16820 ML 3+ Epithelial Cells No Neutrophils Observed No Organisms Seen Wound/Misc Culture Final 10/11/16- 819 ML Organism 1 NORMAL AMADOU Quantity 1+ * ML - MAIN LAB (PSC1) . END OF REPORT * ML=Testing performed at Main Lab DEPARTMENT OF PATHOLOGY, [address] [place] [address] Brian Goldstein M.D. Director [facility] # [id number] 9 [id number] 10 Because ethnic data is not always readily available, this report includes an eGFR for both -Americans and non- Americans. The National Kidney Disease Education Program (NKDEP) does not endorse the use of the MDRD equation for patients that are not between the ages of 18 and 70, are , have extremes of body size, muscle mass, or nutritional status, or are non- or non-. According to the National Kidney Foundation, irrespective of diagnosis, the stage of the disease is based on the level of kidney function: Stage Description GFR(mL/min/1.73 m(2)) 1 Kidney damage with normal or decreased GFR 90 2 Kidney damage with mild decrease in GFR 60-89 3 Moderate decrease in GFR 30-59 4 Severe decrease in GFR 15-29 5 Kidney failure <15 (or dialysis) 11 SEE RESULT BELOW Name: ENOC EDWARDS : [address]: Vanessa Kennedy NP Acct: [id number] Unit: [id number] AGE: 66 [facility] Re[facility]28[facility]16 SEX: F Status: REG REF SPEC: [id number] LOR: 03/28/16-[address]: Vanessa Kennedy NP REQ: [id number] RECD: 03/28/16 STATUS: COMP _ SOURCE: URINE SPDESC: ORDERED: Urine Culture COMMENTS: [id number] Procedure Result Reported Site Urine Culture Final 03/29/16- 1219 ML No Growth (<1,000 CFU/mL) * ML - MAIN LAB (PSC1) . END OF REPORT * ML=Testing performed at Main Lab DEPARTMENT OF PATHOLOGY, [address] [place] [address] Brian Goldstein M.D. Director [facility] # [id number] 12 REFERENCE VALUE <=1.0 (Negative) 13 REFERENCE VALUE <20.0 (Negative) 14 Tests for antibodies to dsDNA and YESSICA antigens are not performed automatically unless the KAREL result is > or= 3.0 U. Studies performed at [facility] indicate that positive KAREL results <3.0 U are rarely accompanied by positive second order tests. Test Performed by: [facility] [place] [address] Construction Secretary: Martínez Catherine II, M.D., Ph.D. 15 Test Performed by: [facility] [place] [address] Construction Secretary: Martínez Catherine II, M.D., Ph.D. 16 [id number] 17 Normal Range 180 to 914 Indeterminate Range 145 to 180 Deficient Range <145 18 Because ethnic data is not always readily available, this report includes an eGFR for both -Americans and non- Americans. The National Kidney Disease Education Program (NKDEP) does not endorse the use of the MDRD equation for patients that are not between the ages of 18 and 70, are , have extremes of body size, muscle mass, or nutritional status, or are non- or non-. According to the National Kidney Foundation, irrespective of diagnosis, the stage of the disease is based on the level of kidney function: Stage Description GFR(mL/min/1.73 m(2)) 1 Kidney damage with normal or decreased GFR 90 2 Kidney damage with mild decrease in GFR 60-89 3 Moderate decrease in GFR 30-59 4 Severe decrease in GFR 15-29 5 Kidney failure <15 (or dialysis) 19 No bands detected 20 Specific serologic response to B. burgdorferi infection is not detected, but cannot rule out early infection during which low or undetectable antibody levels to B. burgdorferi may be present. If clinically indicated, a new serum specimen should be submitted in 7-14 days. ADDITIONAL INFORMATION CDC criteria require >=5 bands for IgG or >=2 bands for IgM for the Immunoblot to be considered positive. Bands (e.g.,p41) may be detected in patients without Lyme disease, and patterns not meeting the CDC criteria should be interpreted with caution. Immunoblot should be ordered only on specimens that are positive or equivocal by a FDA-licensed Lyme disease antibody screening test (e.g., EIA). Test Performed by: [place] [address] Construction Secretary: Martínez Catherine II, M.D., Ph.D. 21 [id number] 22 Test Performed by: [place] [address] Construction Secretary: Martínez Catherine II, M.D., Ph.D. 23 Acute inflammation: >10.00 24 FASTING Had a piece of toast and coffee with half and half this morning for subhash akfast at 0800. 25 Because ethnic data is not always readily available, this report includes an eGFR for both -Americans and non- Americans. The National Kidney Disease Education Program (NKDEP) does not endorse the use of the MDRD equation for patients that are not between the ages of 18 and 70, are , have extremes of body size, muscle mass, or nutritional status, or are non- or non-. According to the National Kidney Foundation, irrespective of diagnosis, the stage of the disease is based on the level of kidney function: Stage Description GFR(mL/min/1.73 m(2)) 1 Kidney damage with normal or decreased GFR 90 2 Kidney damage with mild decrease in GFR 60-89 3 Moderate decrease in GFR 30-59 4 Severe decrease in GFR 15-29 5 Kidney failure <15 (or dialysis) 26 FASTING Had a piece of toast and coffee with half and half this morning for subhash akfast at 0800. 27 FASTING Had a piece of toast and coffee with half and half this morning for subhash akfast at 0800. 28 Normal Range 180 to 914 Indeterminate Range 145 to 180 Deficient Range <145 29 Desirable <150 Borderline high 150-199 High 200-499 Very High >500 30 Desirable <200 Borderline high 200-239 High >239 31 Low <40 Desirable: 40-60 High: >60 32 Desirable: <100 mg/dL Near Optimal: 100-129 mg/dL Borderline High: 130-159 mg/dL High: 160-189 mg/dL Very High: >189 mg/dL 33 ordered by Trino Wil RPA-C ~~ordered by Trino Wil RPA-C ~~ ordered by Trino Wil RPA-C ~~ordered by Trino Wil RPA-C ~~ordered by Trino Wil RPA-C ~~ordered by Trino Wil RPA-C ~~ordered by Trino Wil RPA-C ~~ordered by Trino Wil RPA-C ~~ordered by Trino Wil RPA-C ~~ordered by Trino Wil RPA-C ~~ordered by Trino Wil RPA-C 34 ordered by Trino Wil RPA-C 35 Test Performed by: [place] [address] Construction Secretary: Anatoliy Barrios M.D. 36 Postmenopausal Females < 20 Ovulating females: by day in cycle relative to LH Peak Follicular phase - 12 10-50 - 4 60-200 Mid-cycle - 1 120-375 Luteal phase + 2 50-155 + 6 60-260 + 12 15-115 37 Test Performed by: [place] [address] Construction Secretary: Anatoliy Barrios M.D. 38 Female reference ranges for Progesterone: Follicular phase.......0.3 - 1.5 ng/ml Mid-luteal phase.......5.2 - 18.5 ng/ml Postmenopausal.........< 0.8 ng/ml 1st trimester.........4.7 - 50.0 ng/ml 2nd trimester.........19.4 - 45.3 ng/ml 39 ADDITIONAL INFORMATION Testing performed by [facility]. 40 ADDITIONAL INFORMATION Testing performed by Liquid Chromatography-Tandem Mass Spectrometry (LC-MS/MS). Test Performed by: [place] [address] Construction Secretary: Anatoliy Barrios M.D. 41 ordered by Trino Luz RPA-C 42 ordered by Trino Luz RPA-C 43 REFERENCE VALUE 25-HYDROXY D TOTAL (D2+D3) Optimum levels in the healthy population are 20-50, patients with bone disease may benefit from higher levels within this range. Test Performed by: [place] [address] Construction Secretary: Anatoliy Barrios M.D. 44 ordered by trino luz 45 ordered by trino luz 46 ordered by trino luz 47 -- REFERENCE VALUE -- 25-HYDROXY D TOTAL (D2+D3) Optimum levels in the normal population are 25-80 Test Performed by: [place] [address] Construction Secretary: Nakul Cortez III, M.D. 48 Anion gap measurement may be of limited value in the presence of any alkalosis, especially in a combined acid base disorder. . 49 A metabolite of Naproxen, O-desmethylnaproxen, has been shown to interfere with the Jendrassik-Shahram method for measuring total bilirubin. Samples from patients who have taken Naproxen have shown spurious elevation in total bilirubin levels. 50 Because ethnic data is not always readily available, this report includes an eGFR for both -Americans and non- Americans. The National Kidney Disease Education Program (NKDEP) does not endorse the use of the MDRD equation for patients that are not between the ages of 18 and 70, are , have extremes of body size, muscle mass, or nutritional status, or are non- or non-. According to the National Kidney Foundation, irrespective of diagnosis, the stage of the disease is based on the level of kidney function: Stage Description GFR(mL/min/1.73 m(2)) 1 Kidney damage with normal or decreased GFR 90 2 Kidney damage with mild decrease in GFR 60-89 3 Moderate decrease in GFR 30-59 4 Severe decrease in GFR 15-29 5 Kidney failure <15 (or dialysis) 51 New Reference Range and Interpretation effective 02/28/2002 TnI (ng/ml) INTERPRETATION Less Than 0.06 ng/mL NOT SUPPORTIVE OF DIAGNOSIS OF AR 0.06 - 0.50 ng/ml INDETERMINATE: SUGGEST SERIAL STUDIES IF CLINICALLY INDICATED. Greater than 0.5 ng/mL CONSISTENT WITH DIAGNOSIS OF AR . 52 SPECIMEN CONTAINS NORMAL URETHRAL OR PERINEAL AMADOU AND DOES NOT SUGGEST URINARY TRACT INFECTION 53 The CA 125 assay is not recommended as a cancer screening test, but rather as an aid in monitoring response to therapy for patients with epithelial ovarian cancer. Serial testing for patients CA 125 assay values should be used in conjunction with other methods used for screening ovarian cancer. . 54 -- REFERENCE VALUE -- 25-HYDROXY D TOTAL (D2+D3) Optimum levels in the normal population are 25-80 Test Performed by: [facility] Dpt of Lab Med and Pathology [address] [place] [id number] Construction Secretary: Nakul Cortez III, M.D. 55 Test Performed by: [facility] [address] [place] [id number] Construction Secretary: Nakul Cortez III, M.D. 56 FAX RESULTS TO AT FAX NUMBER [phone] 57 PLEASE NOTE NEW REFERENCE RANGES. 58 -- REFERENCE VALUE -- 25-HYDROXY D TOTAL (D2+D3) Optimum levels in the normal population are 25-80 Test Performed by: [facility] Path[facility] [address] [place] [address] Construction Secretary: Nakul Cortez III, M.D. 59 Recent studies consider the lower limit of 32.0 ng/mL to be a threshold for optimal health. Ozzie BALDWIN. J Nutr. 2005 Jun;135(2):317-22. 60 TEST FREE+TOTAL TESTOSTERONE WAS ADDED ON 10/15/07 AT 23:48 BY TMR. Please fax results to Trino Pena [phone] 61 . Normally Menstruating Females: Follicular Phase: 18.9-246.7 Mid-Cycle Peak : 35.5-570.8 Luteal Phase : 22.4-256.0 Postmenopausal........: <7.0-44.5 Males.................: 11.6-41.2 . 62 FEMALES: Normally Menstruating: Follicular Phase: 0.15-1.40 Luteal Phase : 3.34-25.56 Mid-Luteal Phase: 4.44-28.03 : First Trimester : 11.22-90.00 Second Trimester: 25.55-89.40 Third Trimester : 48.40-422.50 Postmenopausal......: ND*-0.73 *ND=not detectible MALES.................: 0.28-1.22 . 63 Recent studies consider the lower limit of 32.0 ng/mL to be a threshold for optimal health. Ozzie BALDWIN. J Nutr. 2005 Jun;135(2):317-22. 64 please send results to trino luz; fax#[phone] [place] [phone] 65 Recent studies consider the lower limit of 32.0 ng/mL to be a threshold for optimal health. Ozzie BALDWIN. J Nutr. 2005 Jun;135(2):317-22. 66 . Normally Menstruating Females: Follicular Phase: 18.9-246.7 Mid-Cycle Peak : 35.5-570.8 Luteal Phase : 22.4-256.0 Postmenopausal........: <7.0-44.5 Males.................: 11.6-41.2 . 67 FEMALES: Normally Menstruating: Follicular Phase: 0.15-1.40 Luteal Phase : 3.34-25.56 Mid-Luteal Phase: 4.44-28.03 : First Trimester : 11.22-90.00 Second Trimester: 25.55-89.40 Third Trimester : 48.40-422.50 Postmenopausal......: ND*-0.73 *ND=not detectible MALES.................: 0.28-1.22 . 69 . Normally Menstruating Females: 1.8-17.4 Post Menopausal- with Hormone Replacement Therapy: 1.0-16.4 without Hormone Replacement Therapy: 1.9-20.6 69 Normally Menstruating Females: 4.2-41.0 Post Menopausal- with Hormone Replacement Therapy: 2.4-48.0 without Hormone Replacement Therapy: 4.4-48.0 70 FASTING 71 mL/min/1.73m2 . Normal Function or Mild Renal Disease, if clinically at risk: >or=60 Moderately decreased: 30 - 59 Severely decreased: 15 - 29 Renal Failure: <15 . Please note that the MDRD equation requires an additional adjustment for -Americans (multiply the GFR result by 1.210). . Glomerular Filtration Rate (GFR) is estimated based on the MDRD equation, which assumes a steady state for creatinine (Lorraine Int Med 139/2 137-149, 2003), as recommended by the National Kidney Disease Education Program in conjunction with the National Institutes of Health and the National Kidney Foundation. . Clinical conditions in which it may be necessary to measure GFR by using clearance methods include extremes of age and body size, severe malnutrition or obesity, diseases of skeletal muscle, paraplegia or quadriplegia, vegetarian diet, rapidly changing kidney function, and calculation of the dose of potentially toxic drugs that are excreted by the kidneys. 72 TEST LABORATORY RESULTS COPY WAS ADDED ON 04/23/07 AT 23:47 BY [facility]. PLEASE SEND RESULT TO [address] DOMÍNGUEZ [address] DR LUZ 74 mL/min/1.73m2 . Normal Function or Mild Renal Disease, if clinically at risk: >or=60 Moderately decreased: 30 - 59 Severely decreased: 15 - 29 Renal Failure: <15 . Please note that the MDRD equation requires an additional adjustment for -Americans (multiply the GFR result by 1.210). . Glomerular Filtration Rate (GFR) is estimated based on the MDRD equation, which assumes a steady state for creatinine (Lorraine Int Med 139/2 137-149, 2003), as recommended by the National Kidney Disease Education Program in conjunction with the National Institutes of Health and the National Kidney Foundation. . Clinical conditions in which it may be necessary to measure GFR by using clearance methods include extremes of age and body size, severe malnutrition or obesity, diseases of skeletal muscle, paraplegia or quadriplegia, vegetarian diet, rapidly changing kidney function, and calculation of the dose of potentially toxic drugs that are excreted by the kidneys. 75 HGBA1C (%) GLUCOSE CONTROL >8 Action Suggested 7-8 Good Control <7 Goal 6-7 Near Normal Glycem <6 Non-diabetic Level . 76 Effective September 18, 2002 please note change in reference range. 77 Source: URINE,VOIDED No growth. Procedures Date CPT Code Description Status Comment 06/12/2017 70993 Multiple Allergy Shot Completed Administrat 06/12/2017 12217 EKG, at Least 12 Leads Completed w/Interpretation and Report 05/29/2017 50756 Multiple Allergy Shot Completed Administrat 05/07/2017 97877 Multiple Allergy Shot Completed Administrat 04/23/2017 68240 Multiple Allergy Shot Completed Administrat 04/09/2017 32045 Multiple Allergy Shot Completed Administrat 03/23/2017 66435 Multiple Allergy Shot Completed Administrat 03/08/2017 03447 Multiple Allergy Shot Completed Administrat 02/22/2017 27058 Multiple Allergy Shot Completed Administrat 01/30/2017 42232 Multiple Allergy Shot Completed Administrat 01/16/2017 04672 Multiple Allergy Shot Completed Administrat 01/02/2017 16521 Multiple Allergy Shot Completed Administrat 12/19/2016 55981 Multiple Allergy Shot Completed Administrat 12/07/2016 01692 Multiple Allergy Shot Completed Administrat 11/23/2016 01681 Multiple Allergy Shot Completed Administrat 11/09/2016 00016 Multiple Allergy Shot Completed Administrat 10/26/2016 16055 Multiple Allergy Shot Completed Administrat 10/04/2016 84952 Multiple Allergy Shot Completed Administrat 09/20/2016 17593 Multiple Allergy Shot Completed Administrat 08/28/2016 45531 Multiple Allergy Shot Completed Administrat 08/14/2016 69069 Multiple Allergy Shot Completed Administrat 07/20/2016 10265 Multiple Allergy Shot Completed Administrat 07/06/2016 93422 Multiple Allergy Shot Completed Administrat 06/22/2016 93107 Multiple Allergy Shot Completed Administrat 06/07/2016 75473 Multiple Allergy Shot Completed Administrat 04/28/2016 06480 Multiple Allergy Shot Completed Administrat 04/13/2016 94280 Multiple Allergy Shot Completed Administrat 03/13/2016 99385 Multiple Allergy Shot Completed Administrat 02/28/2016 37575 Multiple Allergy Shot Completed Administrat 01/24/2016 09287 Multiple Allergy Shot Completed Administrat 12/24/2015 52757 Multiple Allergy Shot Completed Administrat 12/07/2015 69147 Multiple Allergy Shot Completed Administrat 11/05/2015 67254 Multiple Allergy Shot Completed Administrat 10/22/2015 37813 Multiple Allergy Shot Completed Administrat 09/17/2015 40643 Multiple Allergy Shot Completed Administrat 08/17/2015 20871 Multiple Allergy Shot Completed Administrat 07/05/2015 72831 Multiple Allergy Shot Completed Administrat 06/02/2015 88342 Multiple Allergy Shot Completed Administrat 04/28/2015 86155 Multiple Allergy Shot Completed Administrat 04/14/2015 49831 Multiple Allergy Shot Completed Administrat 03/30/2015 63322 EKG, at Least 12 Leads Completed w/Interpretation and Report 03/15/2015 00921 Multiple Allergy Shot Completed Administrat 02/26/2015 60083 Multiple Allergy Shot Completed Administrat 02/12/2015 73222 Multiple Allergy Shot Completed Administrat 01/28/2015 93338 Multiple Allergy Shot Completed Administrat 01/14/2015 48733 Multiple Allergy Shot Completed Administrat 12/31/2014 81495 Multiple Allergy Shot Completed Administrat 11/25/2014 28407 Multiple Allergy Shot Completed Administrat 10/28/2014 18494 Multiple Allergy Shot Completed Administrat 10/14/2014 32708 Multiple Allergy Shot Completed Administrat 09/30/2014 50489 Multiple Allergy Shot Completed Administrat 09/16/2014 47935 Multiple Allergy Shot Completed Administrat 09/02/2014 30772 Multiple Allergy Shot Completed Administrat 08/19/2014 08480 Multiple Allergy Shot Completed Administrat 08/05/2014 37969 Multiple Allergy Shot Completed Administrat 07/17/2014 90972 Multiple Allergy Shot Completed Administrat 07/03/2014 01206 Multiple Allergy Shot Completed Administrat 06/17/2014 40682 Multiple Allergy Shot Completed Administrat 05/19/2014 25030 Multiple Allergy Shot Completed Administrat 05/05/2014 47167 Multiple Allergy Shot Completed Administrat 04/21/2014 91089 Multiple Allergy Shot Completed Administrat 04/07/2014 39707 Multiple Allergy Shot Completed Administrat 03/24/2014 16334 Multiple Allergy Shot Completed Administrat 03/10/2014 12242 Multiple Allergy Shot Completed Administrat 02/24/2014 69871 Multiple Allergy Shot Completed Administrat 02/10/2014 42934 Multiple Allergy Shot Completed Administrat 01/27/2014 51693 Multiple Allergy Shot Completed Administrat 01/13/2014 92066 Multiple Allergy Shot Completed Administrat 12/29/2013 98504 Multiple Allergy Shot Completed Administrat 12/10/2013 14802 Multiple Allergy Shot Completed Administrat 11/24/2013 53104 Multiple Allergy Shot Completed Administrat 11/05/2013 85184 Multiple Allergy Shot Completed Administrat 10/23/2013 86137 Multiple Allergy Shot Completed Administrat 10/09/2013 71265 Multiple Allergy Shot Completed Administrat 09/25/2013 Colonoscopy Completed Diverticulosis- with Dr. Gaxiola in [place]. 09/25/2013 98310 Multiple Allergy Shot Completed Administrat 09/11/2013 84908 Multiple Allergy Shot Completed Administrat 08/28/2013 51185 Multiple Allergy Shot Completed Administrat 08/14/2013 40961 Multiple Allergy Shot Completed Administrat 07/24/2013 88234 Multiple Allergy Shot Completed Administrat 07/10/2013 84057 Multiple Allergy Shot Completed Administrat 06/10/2013 00292 Multiple Allergy Shot Completed Administrat 05/26/2013 96673 Multiple Allergy Shot Completed Administrat 05/12/2013 33825 Multiple Allergy Shot Completed Administrat 04/28/2013 60947 Multiple Allergy Shot Completed Administrat 04/11/2013 97481 Multiple Allergy Shot Completed Administrat 03/27/2013 30918 Multiple Allergy Shot Completed Administrat 03/14/2013 16492 Multiple Allergy Shot Completed Administrat 02/19/2013 37971 Multiple Allergy Shot Completed Administrat 02/05/2013 45868 Multiple Allergy Shot Completed Administrat 01/14/2013 59903 Multiple Allergy Shot Completed Administrat 12/31/2012 38687 Multiple Allergy Shot Completed Administrat 12/05/2012 45171 Multiple Allergy Shot Completed Administrat 11/13/2012 13945 Multiple Allergy Shot Completed Administrat 10/31/2012 41846 Multiple Allergy Shot Completed Administrat 10/16/2012 36768 Multiple Allergy Shot Completed Administrat 10/01/2012 23838 Multiple Allergy Shot Completed Administrat 09/17/2012 23086 Multiple Allergy Shot Completed Administrat 09/04/2012 18643 Multiple Allergy Shot Completed Administrat 08/19/2012 65343 Multiple Allergy Shot Completed Administrat 08/06/2012 86398 Multiple Allergy Shot Completed Administrat 07/18/2012 81758 Multiple Allergy Shot Completed Administrat 07/10/2012 22462 Multiple Allergy Shot Completed Administrat 06/26/2012 62952 Multiple Allergy Shot Completed Administrat 06/13/2012 89463 Multiple Allergy Shot Completed Administrat 05/29/2012 41804 Multiple Allergy Shot Completed Administrat 05/08/2012 98341 Multiple Allergy Shot Completed Administrat 04/25/2012 71490 Multiple Allergy Shot Completed Administrat 03/27/2012 36666 Multiple Allergy Shot Completed Administrat 03/13/2012 21079 Multiple Allergy Shot Completed Administrat 02/22/2012 32791 Multiple Allergy Shot Completed Administrat 02/15/2012 35021 Multiple Allergy Shot Completed Administrat 02/08/2012 01217 Multiple Allergy Shot Completed Administrat 02/02/2012 43086 Multiple Allergy Shot Completed Administrat 01/26/2012 28876 Multiple Allergy Shot Completed Administrat 01/18/2012 66047 Multiple Allergy Shot Completed Administrat 01/09/2012 85751 Multiple Allergy Shot Completed Administrat 01/02/2012 75912 Multiple Allergy Shot Completed Administrat 12/27/2011 95488 Multiple Allergy Shot Completed Administrat 12/20/2011 83271 Multiple Allergy Shot Completed Administrat 12/11/2011 17926 Multiple Allergy Shot Completed Administrat 12/04/2011 26212 Multiple Allergy Shot Completed Administrat 11/27/2011 49685 Multiple Allergy Shot Completed Administrat 11/20/2011 89476 Multiple Allergy Shot Completed Administrat 11/13/2011 97770 Multiple Allergy Shot Completed Administrat 11/06/2011 09163 Multiple Allergy Shot Completed Administrat 10/26/2011 26168 Multiple Allergy Shot Completed Administrat 10/19/2011 27363 Multiple Allergy Shot Completed Administrat 10/10/2011 67565 Multiple Allergy Shot Completed Administrat Encounters Type Date Location Provider CPT E/M Dx Office Visit 03/28/2017 3:15p Main Office Vanessa Kennedy [facility] 79551 S20.361A Office Visit 10/09/2016 11:45a Main Office Vanessa Kennedy [facility] 00246 R21 Office Visit 03/28/2016 10:30a Main Office Vanessa Kennedy [facility] 67394 N39.0 Office Visit 11/09/2015 2:30p Main Office Timyony KahnNarindertacho BARROS [facility] 59596 R53.83 M25.569 K59.00 Office Visit 09/02/2015 3:15p [place] [address] J01.90 Office Visit 07/21/2015 11:30a Main Office Elise Prieto M.D. 63585 J18.9 Office Visit 07/19/2015 11:45a Main Office Elise Prieto M.D. 84584 J06.9 Office Visit 03/30/2015 12:00p Main Office Elise Prieto M.D. 47018 Z82.49 Z00.01 E03.9 Z79.890 M79.1 Z82.49 Z23 Office Visit 11/25/2014 9:45a Main Office Vanessa Kennedy [facility] 77870 V07.1 782.9 786.2 Office Visit 11/11/2014 10:30a [facility] [address] 782.9 Office Visit 11/06/2014 4:45p Main Office Vince Rivera [facility] 22874 786.2 Office Visit 04/18/2014 9:45a Main Office Janette Valerio M.D. 97242 466.0 Office Visit 04/14/2014 2:30p Main Office Vince Rivera [facility] 79454 466.0 Office Visit 02/26/2014 11:30a Main Office Vince Rivera [facility] 24628 053.9 Office Visit 06/16/2013 9:15a Main Office Vanessa Kennedy [facility] 84038 465.9 Office Visit 02/24/2013 3:30p [facility] 28715 381.9 Office Visit 05/14/2010 11:15a Main Office Elise Prieto M.D. 94729 724.5 Office Visit 07/03/2009 10:30a Main Office Janette Valerio M.D. 24921 789.04 Office Visit 06/08/2009 8:45a Main Office Vince Rivera [facility] 69879 848.8 848.8 Office Visit 01/28/2009 2:45p Main Office Katelin Farrell [facility] 08489 465.9 Office Visit 06/28/2007 2:30p Main Office Vince Rivera [facility] 98678 382.9 Office Visit 02/21/2007 9:30a Main Office Vince Rivera [facility] 37315 381.04 309.9 Office Visit 11/24/2006 9:45a Main Office Katelin Farrell F.N.P.C[facility] 81588 784.1 Office Visit 11/07/2006 12:45p Main Office Elise Prieto M.D. 79963 034.0 Office Visit 07/07/2006 11:15a Main Office Elise Prieto M.D. 29536 461.9 386.10 Office Visit 11/04/2004 4:00p Main Office Vanessa Piper M.D. 74806 386.10 Office Visit 06/18/2004 9:00a Main Office Shaun Israel M.D. 56468 595.0 Office Visit 02/02/2004 4:45p Main Office Vanessa Piper M.D. 90021 692.6 Office Visit 01/22/2003 4:30p Main Office Errol Barr M.D. 27700 789.01 Office Visit 12/24/2002 4:45p Main Office Janette Valerio M.D. 12587 372.30 Office Visit 11/19/2002 10:00a Main Office Elise Prieto M.D. 14001 780.79 V18.0 368.9 Office Visit 12/17/2001 5:20p Main Office Vanessa Piper M.D. 28339 682.3 Office Visit 09/03/2001 10:00a Main Office Elise Prieto M.D. 38706 465.9 Plan of Care Future Appointment(s):06/26/2017 11:40 am - [facility] Office Services at Main [facility]1306/12/2017 - Elise Prieto M.D.R00.2 PalpitationsComments:DISCUSSED MY CONCERN WITH HER CONSTELLATION OF SX AND COULD BE CARDIAC. THOUGH IT SOUNDS LIKE SX AREOCCURING AT TIMES WHEN SHE HAS NOT EATEN AND VERY WELL COULD REPRESENT HYPOGLYCEMIA, DOES FEEL BETTER AFTER EATING. DISCUSSED IMPORTANCE OF EATING REGULARLY EVERY 3 HOURS DURING THE DAY, PROTEIN SNACKS, ETC. ALSO DISCUSSED CONCERN FOR POSSIBLE ARRHYTHMIA CAUSE OF HER SX. DOES NOT GET EXERTIONAL SX OTHERWISE SO ISCHEMIA UNLIKELY BUT WE REVIEWED SX OF AR AND HOW THEY CAN BE MORE SUBTLE AND DIFFERENTTHAN FOR MEN AND TO CALL 911 IF OCCUR. WILL GET CARDIOLOGY CONSULT AND HOLTER. ALSO DISCUSSED BW TO R/O UNDERLYING CONTRIBUTING CAUSE.Follow up:. -- SET UP PHYSICAL -- REFER FOR HOLTER AND CONSULT WITH DR. CHUNG SPECIFICALLY ( SEES DR. CHUNG) FOR CONSULT ON PALPITATIONS, LIGHTHEADEDNESSRecommendations:-- GET THE 24 HOUR HOLTER MONITOR AND SEE DR. CHUNG FOR A CARDIOLOGY CONSULT-- I WANT TO MAKE SURE YOU ARE NOT GETTING INTO AN ABNORMAL HEART RHYTHM -- MAKE SURE TO EAT REGULARLY DURING THE DAY- EVERY 3 HOURS- EAT PROTEIN (YOGURT, EGGS, NUT BUTTER, COTTAGE CHEESE, MILK , ETC) -- CUT DOWN ON CAFFEINE GRADUALLY THAT CAN INCREASE PALPITATIONS AND ALSO LOW BLOOD SUGAR SYMPTOMS -- IF YOU HAVE RECURRENCE OF SYMPTOMS, LET ME KNOW. IF YOU HAVE CHEST DISCOMFORT OR DISCOMFORT TO YOUR ARM OR NECK OR NAUSEA/ VOMITING WITH IT OR SWEATING WITH IT OR IF YOU PASS OUT, YOU NEED TO CALL 911. ALSO CALL 911 IF YOUR SYMPTOMS LAST MORE THAN A FEW MINUTES OR DO NOT RESOLVE WITHIN A FEW [id number] Insect bite (nonvenomous) of r red wl of thorax, subsComments:WILL CHECK LYME TEST, THOUGH UNLIKELY CAUSE OF HER SX WITHOUT OBVIOUS CONDUCTION ISSUE.Recommendations:-- WE CHECKED YOUR LYME TEST WITH YOUR BLOODWORK FIUASC34.59 Encounter for screening for other viral diseasesFollow up: .Recommendations:-- WE CHECKED YOUR HEPATITIS C SCREENING BLOODWORK TODAY. IT IS RECOMMENDED THAT ALL "BABY BOOMERS,"BORN BETWEEN [id number] GET SCREENED FOR HEPATITIS C.
--- OUTSIDE RECORDS SUMMARY | 2017-06-27 10:04 | XMS REPORT ---
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 Unavailable Elise Horton MD Primary Care Physician Unavailable Payers Type Date Identification Numbers Payment Provider Subscriber Medicare Primary Policy Number: [id number] [employer] [place] Vikki Jaime PayID: [id number] [address] [place] [address] Commercial Policy Number: [id number] [facility] Vikki Jaime PayID: [id number] [address] [place] [address] Problems Date Description Provider Status Onset: 12/06/2016 [...] Form Strength Qnty SIG Indications Ordering Provider Pamela 10/16 Active Solution 0.7% 2.5un Instill 1 [...] 10mg 90tab Take One J30.1 opher Sodium /2014 s Tablet By Davon Thompson MD Mouth Every Evening Levothyroxine Active Unknown Sodium Eye Wash Active Solution Unknown Acyclovir Active Capsules 200mg take 2 Unknown /0000 capsule by mouth 3 times a day as needed Zovirax Active Cream 5% Unknown / Preser Vision Active Unknown /0000 Vitamin D3 Active Chewtabs 2000Unit once Unknown /0000 daily Lysine HCL Active Tablets 1000mg Unknown /0000 Zinc Active Tablets 50mg Unknown /0000 Vitamin C Active Tablets 1000mg 1 by Unknown /0000 mouth every day Fluticasone Active Suspension 50mcg/Act 16gm Inhale Two Davon Thompson MD Sprays In Each Nostril Every Day Medrol 02/14 Hx TBPK 4mg 21uni take as ts directed Davon Thompson MD - 06/06 Tessalchristie Sweeney 07/24 Hx Capsules 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 s three ISRA Nur-C - times a /2016 Prednisone 07/21 Hx Tablets 10mg 18tab Take [...] both 07/24 eyes once daily as needed Paty 10/14 Hx Solution 0.2% 1bott Instill H10.45 le one drop Davon Thompson MD - into both 10/14 eyes once daily as needed Pazeo 10/14 Hx Solution 0.7% 1unit Instill 1 H10.45 s drop into Davon Thompson MD - affected 02/06 eye(s) ophthalmi c route once daily as needed 04/16 Hx Solution 0.2% 1unit Instill s 1-2 drops Davon Thompson MD - into 10/14 affected eye(s) once daily as needed Levocetirizine 03/29 Hx Tablets 5mg 90tab Take One Adela Melton Dihydrochloride s Tablet By Fenstermache - Mouth At r, RPA-C 04/16 Bedtime as Needed Montelukast Hx Tablets 10mg 90tab 1 take opher Sodium / s one Davon Thompson MD - tablet by 04/16 mouth daily in the evening Acyclovir 00/00 Hx Unknown /0000 - 02/06 Zovirax 00/ Hx Unknown /0000 - 02/06 Levothyroxine 00 Hx Tablets 75mcg Unknown Sodium / - 02/06 Genteal Mild 00 Hx Solution 0.2% Unknown / - 07/24 Stool Softener Hx Tablets 8.6-50mg take 2 Unknown Laxative tablets - by oral 07/24 route /2016 once daily Proair HFA Hx Aerosol 108(90Bas 8.500 2 puffs oph e) gm every 4 Davon Thompson MD - mcg/Act as needed 12/05 Qvar Hx Aerosol 80mcg/Act inhale 2 puffs by - inhalatio 10/14 n route times per day Estring Hx Ring 2mg insert 1 vaginal - ring by 02/06 vaginal route every 90 days Tylenol With Hx Tablets 300-30mg as needed Unknown Codeine #3 - 07/24 Moxifloxacin HCL Hx Tablets 400mg one Christoph tablet by Davon Thompson MD - mouth 06/06 every day x 14 days Acidophilus Hx Capsules 100mg Unknown Probiotic / - 06/06 Vital Signs Date Vital Result Comment 06/06/2017 [...] lb 09/25/2012 Heart Rate 80 /min Results Description No Information Procedures Date CPT Code Description Status 05/10/2017 95400 Allergy Antigens Single Or Multiple Completed 12/15/2016 86161 Allergy Antigens Single Or Multiple Completed 12/06/2016 28515 Nitric Oxide Gas Determination Completed 12/06/2016 65103 Bronchodilation Responsiveness Spirometry Pre/Post Completed Bronchodil Adm 07/07/2016 10212 Allergy Antigens Single Or Multiple Completed 05/17/2016 95495 Bronchodilation Responsiveness Spirometry Pre/Post Completed Bronchodil Adm 10/18/2015 45930 Allergy Antigens Single Or Multiple Completed 07/09/2015 65146 Allergy Antigens Single Or Multiple Completed 04/16/2015 57993 Bronchodilation Responsiveness Spirometry Pre/Post Completed Bronchodil Adm Encounters Type Date Location Provider CPT E/M Dx Office Visit 12/06/2016 2:30p Dimitri Dubose, RPA-[facility] 51441 J45.20 J30.1 J30.89 H10.45 Office Visit 07/24/2016 10:00a [place] HarjinderBoom, [facility] 22208 J45.31 J06.9 R05 Office Visit 05/17/2016 10:00a Dimitri Dubose RPA-[facility] 36245 J45.20 J30.1 J30.89 H10.45 Office Visit 02/07/2016 11:30a Dimitri Dubose, RPA-C 74914 J45.21 Office Visit 10/15/2015 3:30p Dimitri Dubose, RPA-C 42704 J30.1 J30.89 H10.45 J45.20 Office Visit 04/16/2015 9:00a Dimitri Dubose RPA-C 25238 J30.1 J30.89 J45.20 Plan of Care 12/06/2016 - Adela Dubose RPA-CJ45.20 Mild intermittent asthma, uncomplicatedComments:Asthma well controlled. Today's PFT is within normal limits. Exhaled Nitric Oxide level is normal [id number]. Continue Asmanex 100mcg as prescribed. Continue Ventolin as needed for breakthrough asthma symptoms.Follow up:6 months - w/PFT and NIOX prior to jogigA05.1 Allergic rhinitis due to pollenComments:Allergic rhinitis well controlled. Continue medications as prescribed. Continue allergy injections as scheduled. Vikki would like to go to Q3 weeks during the winter months. She will contact the office so we can provide a new schedule for [facility].Follow up:6 months.J30.89 Other allergic yproynltJ14.45 Other chronic allergic conjunctivitisComments:Continue Pazeo eye drops as needed for eye allergy symptoms.Follow up:6 months.
[2017-06-27 10:36] LABS: ABS Basophils 0.1 10^3/ul (0-0.2); ABS Eosinophils 0.1 10^3/ul (0-0.6); ABS Lymphocytes 1.4 10^3/ul (1.0-4.8); ABS Monocytes 0.5 10^3/ul (0-0.8); ABS Neutrophils 3.1 10^3/ul (1.5-7.7); ABS Nucleated RBC 0 10^3/ul; Eosinophil % 2.1 % (0-6); Hematocrit 38 % (35-47); Hemoglobin 13.2 g/dl (12.0-16.0); Lymphocyte % 26.8 % (25-47); Mean Corpuscular HGB Conc 34 g/dl (31-36); Mean Corpuscular Hemoglobin 31 pg (27-31); Mean Corpuscular Volume 91 fL (80-97); Mean Platelet Volume 9 um3 (7.4-10.4); Nucleated Red Blood Cells % 0.1; Platelet Count 274 10^3/ul (150-450); Red Blood Count 4.22 10^6/ul (4.0-5.4); Red Cell Distribution Width 13 % (10.5-15); White Blood Count 5.2 10^3/ul (3.5-10.8)
[2017-06-27 10:48] LABS: EGFR Non-African American 85.1 (>60)
[2017-06-27 11:14] LABS: Urine Appearance Clear; Urine Blood Negative (Negative); Urine Color Straw; Urine Ketones Negative (Negative); Urine Protein Negative (Negative); Urine Specific Gravity 1.005 (1.010-1.030); Urine Urobilinogen Negative (Negative)
--- NOTE | 2017-06-27 11:14 | RAD ---
INDICATION: Chest pain COMPARISON: None TECHNIQUE: PA and lateral dual-energy views were obtained. FINDINGS: Bones/Soft Tissues: There are no acute bony findings. There are old left-sided rib fractures Cardiomediastinal: The cardiomediastinal silhouette is normal. Lungs: There are no infiltrates. Pleura: There are no pleural effusions. Other: None IMPRESSION: NO ACTIVE DISEASE.
[2017-06-27 14:08] VITALS: BP 108/53
--- NOTE | 2017-06-27 18:28 | ED ---
Ignacio Mccord Angela, scribed for Gray Mata MD on 06/27/17 at 0957 . HPI Chest Pain - HPI Summary HPI Summary: This pt is a 67 y/o female presenting to [facility] c/o chest pain this morning. She describes her chest pain as sharp. Prior to the onset of her chest pain she states she was going up and down the stairs, but nothing out of the ordinary. She additionally had nausea. Pt reports that her chest pain has currently resolved, rated 0/10. Pt states she feels lightheadedness now, described as weak. She notes 2 weeks ago pt had intermittent dizziness, described as room spinning. Denies vomiting, SOB, fever, chills. She notes she went to the gym yesterday and was well. Pt reports she has never had this pain before. She has had cough and chronic allergy symptoms currently being followed up by her blocking machine tender. She is supposed to get a holter monitor with Dr. Lambert tomorrow due to her dizziness and FHx of father with quadruple bypass. - History of Current Complaint Chief Complaint: EDChestPainROMI Time Seen by Provider: 06/27/17 09:46 Hx Obtained From: Patient Onset/Duration: Started Hours Ago, Still Present Timing: Lasting Minutes Initial Severity: Moderate Current Severity: None Pain Intensity: 0 Pain Scale Used: 0-10 Numeric Chest Pain Location: Diffuse Chest Pain Radiates: No Character: Sharp/Stabbing - sharp Aggravating Factor(s): Nothing Alleviating Factor(s): Spontaneous Resolution Associated Signs and Symptoms: Positive: Chest Pain, Lightheadedness, Nausea. Negative: Fever, Chills, Vomiting - Allergy/Home Medications Allergies/Adverse Reactions: Allergies Allergy/AdvReac Type Severity Reaction Status Date / Time MS Alosetron [From Lotronex] Allergy MAKES Verified 05/09/16 15:28 SYMPTOMS IN EYE WORSE MS Beclomethasone [From Qvar] Allergy Leg Cramps Verified 05/09/16 15:28 MS Budesonide Allergy Leg Cramps Verified 05/09/16 15:28 [From Symbicort] MS Formoterol Allergy Leg Cramps Verified 05/09/16 15:28 [From Symbicort] LASTACAFT Allergy MAKES Uncoded 05/09/16 15:28 SYMPTOMS IN EYE WORSE Home Medications: Home Medications Acyclovir OINT 5%(NF) [Zovirax Oint 5%(NF)] 1 applic TOPICAL QID PRN 06/27/17 [ History Confirmed 06/27/17] Acyclovir* [Zovirax 400 MG TAB*] 400 mg PO TID PRN 06/27/17 [History Confirmed 06/27/17] Ascorbic Acid TAB* [Vitamin C TAB*] 500 - 1,000 mg PO DAILY 06/27/17 [History Confirmed 06/27/17] Cholecalciferol TAB* [Vitamin D TAB*] 800 unit PO DAILY 06/27/17 [History Confirmed 06/27/17] LevoCETirizine TAB (NF) [Xyzal TAB (NF)] 5 mg PO QAM 06/27/17 [History Confirmed 06/27/17] Levothyroxine TAB* [Synthroid TAB*] 75 mcg PO QAM 06/27/17 [History Confirmed ] Lysine [l-Lysine] 1,000 mg PO QAM 06/27/17 [History Confirmed 06/27/17] Mometasone Hfa Inhaler 2 puff INH BID 06/27/17 [History Confirmed 06/27/17] Montelukast Sodium TAB* [Singulair TAB*] 10 mg PO BEDTIME 06/27/17 [History Confirmed 06/27/17] Multiple Vitamins W/ Minerals [Preservision Areds 2 + Mu] 1 cap PO QAM 06/27/17 [History Confirmed 06/27/17] Nasal Moisturizer Combination [Rhinase] 1 gel TOPICAL QID PRN 06/27/17 [History Confirmed 06/27/17] Olopatadine 0.1% OPHTH (NF) [Patanol 0.1% OPHTH (NF)] 1 drop BOTH EYES DAILY PRN 06/27/17 [History Confirmed 06/27/17] PMH/Surg Hx/FS Hx/Imm Hx Endocrine/Hematology History: Reports: Hx Thyroid Disease Denies: Hx Diabetes Cardiovascular History: Denies: Hx Hypertension, Hx Pacemaker/ICD Respiratory History: Reports: Hx Asthma, Other Respiratory Problems/Disorders - SEASONAL ALLERGIES W/COUGH History: Denies: Hx Renal Disease Musculoskeletal History: Denies: Hx Rheumatoid Arthritis, Hx Osteoporosis - OSTEOPENIA Sensory History: Denies: Hx Hearing Aid Psychiatric History: Denies: Hx Panic Disorder - Cancer History Hx Chemotherapy: No Hx Radiation Therapy: No - Surgical History Surgery Procedure, Year, and Place: TONSILECTOMY. ECTOPIC PRENANCY -1975. Lt [place] -ARTHROSCOPIC. CATARACT -TERRI. 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 Negative: Shortness Of Breath Positive: Nausea - now resolved. Negative: Vomiting Neurological: Other - POS: lightheadedness All Other Systems Reviewed And Are Negative: Yes Physical Exam - Summary Physical Exam Summary: VITAL SIGNS: Reviewed. GENERAL: Patient is a well-developed and nourished female who is lying comfortable in the stretcher. Patient is not in any acute respiratory distress. HEAD AND FACE: No signs of trauma. No ecchymosis, hematomas or skull depressions. No sinus tenderness. EYES: PERRLA, EOMI x 2, No injected conjunctiva, no nystagmus. EARS: Hearing grossly intact. Ear canals and tympanic membranes are within normal limits. MOUTH: Oropharynx within normal limits. NECK: Supple, trachea is midline, no adenopathy, no JVD, no carotid bruit, no c- spine tenderness, neck with full ROM. CHEST: Symmetric, no tenderness at palpation LUNGS: Clear to auscultation bilaterally. No wheezing or crackles. CVS: Regular rate and rhythm, S1 and S2 present, no murmurs or gallops appreciated. ABDOMEN: Soft, non-tender. No signs of distention. No rebound no guarding, and no masses palpated. Bowel sounds are normal. EXTREMITIES: FROM in all major joints, no edema, no cyanosis or clubbing. NEURO: Alert and oriented x 3. No acute neurological deficits. Speech is normal and follows commands. SKIN: Dry and warm Triage Information Reviewed: Yes Vital Signs On Initial Exam: Initial Vitals Temp Pulse Resp BP Pulse Ox 97.1 F 60 16 114/59 100 06/27/17 09:41 06/27/17 09:41 06/27/17 09:41 06/27/17 09:41 06/27/17 09:41 Vital Signs Reviewed: Yes Diagnostics - Vital Signs Vital Signs Temp Pulse Resp BP Pulse Ox 06/27/17 09:41 97.1 F 60 16 114/59 100 - Laboratory Lab Results: Lab Results 06/27/17 06/27/17 06/27/17 Range/Units 10:05 10:05 10:05 WBC (3.5-10.8) 10^3/ul RBC (4.0-5.4) 10^6/ul Hgb (12.0-16.0) g/dl Hct (35-47) % MCV (80-97) fL MCH (27-31) pg MCHC (31-36) g/dl RDW (10.5-15) % Plt Count (150-450) 10^3/ul MPV (7.4-10.4) um3 Neut % (Auto) (38-83) % Lymph % (Auto) (25-47) % [place] % (Auto) (1-9) % Eos % (Auto) (0-6) % Baso % (Auto) (0-2) % Absolute Neuts (auto) (1.5-7.7) 10^3/ul Absolute Lymphs (auto) (1.0-4.8) 10^3/ul Absolute Monos (auto) (0-0.8) 10^3/ul Absolute Eos (auto) (0-0.6) 10^3/ul Absolute Basos (auto) (0-0.2) 10^3/ul Absolute Nucleated RBC 10^3/ul Nucleated RBC % APTT 32.0 (26.0-36.3) seconds D-Dimer, Quantitative < 200 (Less Than 230) ng/mL Sodium 138 (133-145) mmol/L Potassium 4.2 (3.5-5.0) mmol/L Chloride 102 (101-111) mmol/L Carbon Dioxide 30 (22-32) mmol/L Anion Gap 6 (2-11) mmol/L BUN 20 (6-24) mg/dL Creatinine 0.69 (0.51-0.95) mg/dL Est GFR ( Amer) 109.5 (>60) Est GFR (Non-Af Amer) 85.1 (>60) BUN/Creatinine Ratio 29.0 H (8-20) Glucose 89 (70-100) mg/dL Calcium 9.5 (8.6-10.3) mg/dL Magnesium 2.5 (1.9-2.7) mg/dL Total Bilirubin 0.40 (0.2-1.0) mg/dL AST 22 (13-39) U/L ALT 20 (7-52) U/L Alkaline Phosphatase 59 (34-104) U/L Total Creatine Kinase 48 (10-223) U/L CK-MB (CK-2) 2.4 (0.6-6.3) ng/mL Troponin I 0.00 (<0.04) ng/mL B-Natriuretic Peptide 23 ( - 100) pg/mL Total Protein 7.0 (6.4-8.9) g/dL Albumin 4.2 (3.2-5.2) g/dL Globulin 2.8 (2-4) g/dL Albumin/Globulin Ratio 1.5 (1-3) Urine Color Urine Appearance Urine pH (5-9) Ur Specific [place] (1.010-1.030) Urine Protein (Negative) Urine Ketones (Negative) Urine Blood (Negative) Urine Nitrate (Negative) Urine Bilirubin (Negative) Urine Urobilinogen (Negative) Ur Leukocyte Esterase (Negative) Urine Glucose (Negative) 06/27/17 06/27/17 06/27/17 Range/Units 10:05 10:51 13:16 WBC 5.2 (3.5-10.8) 10^3/ul RBC 4.22 (4.0-5.4) 10^6/ul Hgb 13.2 (12.0-16.0) g/dl Hct 38 (35-47) % MCV 91 (80-97) fL MCH 31 (27-31) pg MCHC 34 (31-36) g/dl RDW 13 (10.5-15) % Plt Count 274 (150-450) 10^3/ul MPV 9 (7.4-10.4) um3 Neut % (Auto) 59.9 (38-83) % Lymph % (Auto) 26.8 (25-47) % [place] % (Auto) 9.9 H (1-9) % Eos % (Auto) 2.1 (0-6) % Baso % (Auto) 1.3 (0-2) % Absolute Neuts (auto) 3.1 (1.5-7.7) 10^3/ul Absolute Lymphs (auto) 1.4 (1.0-4.8) 10^3/ul Absolute Monos (auto) 0.5 (0-0.8) 10^3/ul Absolute Eos (auto) 0.1 (0-0.6) 10^3/ul Absolute Basos (auto) 0.1 (0-0.2) 10^3/ul Absolute Nucleated RBC 0 10^3/ul Nucleated RBC % 0.1 APTT (26.0-36.3) seconds D-Dimer, Quantitative (Less Than 230) ng/mL Sodium (133-145) mmol/L Potassium (3.5-5.0) mmol/L Chloride (101-111) mmol/L Carbon Dioxide (22-32) mmol/L Anion Gap (2-11) mmol/L BUN (6-24) mg/dL Creatinine (0.51-0.95) mg/dL Est GFR ( Amer) (>60) Est GFR (Non-Af Amer) (>60) BUN/Creatinine Ratio (8-20) Glucose (70-100) mg/dL Calcium (8.6-10.3) mg/dL Magnesium (1.9-2.7) mg/dL Total Bilirubin (0.2-1.0) mg/dL AST (13-39) U/L ALT (7-52) U/L Alkaline Phosphatase (34-104) U/L Total Creatine Kinase (10-223) U/L CK-MB (CK-2) (0.6-6.3) ng/mL Troponin I 0.00 (<0.04) ng/mL B-Natriuretic Peptide ( - 100) pg/mL Total Protein (6.4-8.9) g/dL Albumin (3.2-5.2) g/dL Globulin (2-4) g/dL Albumin/Globulin Ratio (1-3) Urine Color Straw Urine Appearance Clear Urine pH 7.0 (5-9) Ur Specific [place] 1.005 L (1.010-1.030) Urine Protein Negative (Negative) Urine Ketones Negative (Negative) Urine Blood Negative (Negative) Urine Nitrate Negative (Negative) Urine Bilirubin Negative (Negative) Urine Urobilinogen Negative (Negative) Ur Leukocyte Esterase Negative (Negative) Urine Glucose Negative (Negative) Result Diagrams: 06/27/17 10:05 06/27/17 10:05 Lab Statement: Any lab studies that have been ordered have been reviewed, and results considered in the medical decision making process. - Radiology Chest XR Xray Interpretation: No Acute Changes - IMPRESSION: No active disease. Dr. Mata has reviewed this radiology report. Radiology Interpretation Completed By: Radiologist - EKG 09:45 Cardiac Rate: Bradycardia EKG Rhythm: Sinus Bradycardia - at 58 bpm EKG Interpretation: No ST elevation. EKG Comparison: No Significant Change - similar to prior EKG on 02/28/11. Chest Pain Course/Dx - Course Assessment/Plan: This pt is a 67 y/o female presenting to [facility] c/o chest pain this morning. She describes her chest pain as sharp. Prior to the onset of her chest pain she states she was going up and down the stairs, but nothing out of the ordinary. She additionally had nausea. Pt reports that her chest pain has currently resolved, rated 0/10. Pt states she feels lightheadedness now, described as weak. She notes 2 weeks ago pt had intermittent dizziness, described as room spinning. Denies vomiting, SOB, fever, chills. She notes she went to the gym yesterday and was well. Pt reports she has never had this pain before. She has had cough and chronic allergy symptoms currently being followed up by her blocking machine tender. She is supposed to get a holter monitor with Dr. Lambert tomorrow due to her dizziness and FHx of father with quadruple bypass. Test results without any significant abnormalities. Urinalysis is negative for UTI. Troponin one is 0.00 and troponin two, 4 hours later, is also 0.00. Therefore, I do not suspect of an acute coronary syndrome. I did Ddimer that was less than 200, therefore I have no suspicion for PE. Since the pt continues to be asymptomatic, she will be discharged home with follow up from her PCP. Pt is hemodynamically stable, alert and oriented x3. - Chest Pain Differential Diagnosis/HQI/PQRI: Acute OH, ACS, Angina, CHF, Chest Wall, GI Disease, Lower Respiratory Infection - Diagnoses Provider Diagnoses: Atypical chest pain Discharge - Discharge Plan Condition: Stable Disposition: HOME Patient Education Materials: Chest Pain (ED) Referrals: Elise Prieto MD [Primary Care Provider] - 3 Days Additional Instructions: Please follow up with your primary care provider. RETURN TO THE ED FOR ANY WORSENING SYMPTOMS. The documentation as recorded by the Ignacio french Angela accurately reflects the service I personally performed and the decisions made by Adolfo monsalve Walter, MD.
== END 2017-06-27 14:07 | disposition home or self-care (01) ==
LOC: ED 09:38
DX: R07.89 Other chest pain (principal); R42 Dizziness and giddiness; R11.0 Nausea; R05 Cough
CPT/HCPCS: 36415; 71046; 80053; 81003; 82550; 82553; 83735; 83880; 84484; 85025; 85379; 85730; 93005; 99283

== ENCOUNTER 2017-11-27 14:33 | Emergency (ER) | payer MEDICARE, BC ==
[2017-11-27] MEDS ORDERED: NS 0.9% 1000 ML* 1,000 ML IV ONE (15:07)
--- OUTSIDE RECORDS SUMMARY | 2017-11-27 15:13 | XMS REPORT ---
:1950 External Reference #:[id number] Author Organization Formerly [facility] Address [address] [place] [address] Phone [phone] Care Team Providers Name Role Phone Elise Prieto M.D. Care Team Information Customer Contact Representative Unavailable Payers Type Date Identification Numbers Payment Provider Subscriber Medicare Primary Effective: Policy Number: Medicare - Bswny Enoc Edwards 2016 [id number] [facility] PayID: [id number] [address] [place] [address] [facility] Part B Policy Number: [id number] [facility] Group Name: Jon [address] PayID: [id number] [place] [address] Problems Description No Information Family History Date Family Member(s) Problem(s) Comments Father CAD Father Alzheimer's Disease late 70's Father Cancer, Prostate Mother Osteoporosis no hip fracture, but arm fracture Mother Migraines Mother Vitamin B12 Deficiency First Brother CVA First Brother Diabetes borderline Second Brother No Current Problems First Sister Migraines First Sister Hip Replacement Second Sister Hip Replacement Second Sister Obesity had gastric bypass, previously had Diabetes but resolved Paternal Grandfather CAD of IA or CVA in 40's or 50's Paternal Grandmother Alzheimer's Disease possible Maternal Grandfather Diabetes Maternal Grandmother Diverticulitis not sure if other medical problems, in her 70's Maternal Aunts Cancer, Breast maternal great aunt Maternal Aunts Cancer, Lung maternal aunt Social History Type Date Description Comments Pets 1 dog 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 rinses Blegen, mouth M.D. afterward Lysine HCL 03/30 Active Tablets 1000mg 1 po qam or bid P. Blegen, M.D. Zovirax 03/30 Active Cream 5% 10uni Apply ts Times A Day Emiliano, For 4 Days RADIOLOGY AIDE-C as Needed For Herpes Rash In Groin Area Levocetirizine Active Tablets 5mg Unknown Dihydrochloride / Montelukast Active Tablets 10mg Unknown Sodium / Pazeo Active Solution 0.7% 1 drop in Unknown /0000 each eye qd- uses prn Vitamin D3 Super Active Capsules 2000Unit takes Unknown Strength /0000 [id number] Iu perday Rhinase Active Gel Unknown /0000 Eye Wash Active Solution 1-3 Times A Unknown Sterile /0000 Day prn Vitamin C Active Tablets 1000mg 1 by mouth Unknown /0000 every day Albuterol HFA Active 90mcg/Inh 2 puffs Unknown /0000 every 4 hours as needed Saline Nasal Active Solution as needed Unknown Snyder / Levothyroxine Active Tablets 75mcg 30tab Take One Nany Sodium / s Tablet By Bandar, Mouth Every M.D., Day R.D. Doxycycline 03/[address] 100mg 2tabs 2 tabs by [id number] Vanessa harjit mouth today Emiliano, - RADIOLOGY AIDE-C 06/12 Prednisone 10/11 Hx Tablets 20mg 10tab take 2 tabs s by mouth Emiliano, - every day x RADIOLOGY AIDE-C 12/03 5 days Cephalexin 10/09 Hx Tablets 500mg 21tab take 1 R21 s tablet by Emiliano, - mouth three RADIOLOGY AIDE-C 12/03 times a day x 7 days Bactrim DS 03/28 Hx Tablets 800-160mg 10tab 1 po bid x N39.0 s 5 days Emiliano, - RADIOLOGY AIDE-C 06/22 Mucinex 07/21 Hx Tablets ER 600mg 20tab 1 PO bid J18.9 12HR s For P. - Bronchitis, Blegen, 06/22 With Full M.D. Glass Of Water Azithromycin 07/21 Hx Tablets 250mg 6tabs 2 by mouth J18.9 every day P. - first day Blegen, 06/22 then 1 by M.D. /2016 mouth every day x 4 days Preservision 07/19 Hx Capsules 90cap 1 po bid Elise s P. - Blegen, 10/15 M.D. /2017 Guaifenesin ac 07/19 Hx Syrup 100-10mg/ 120cc 5-10 ML AT J06.9 5ML Night as P. - Needed For Blegen, 06/22 Cough- M.D. Causes Drowsiness Vitamin B-12 03/31 Hx Tablets 1000mcg 1 po qd P. - Blegen, 06/22 M.D. Vitamin C 03/30 Hx Tablets 1000mg 1 po qd to bid P. - Blegen, 06/22 M.D. Vitamin B-12 03/30 Hx Tablets 6000mcg 1 by mouth every day P. - Blegen, 03/31 M.D. Vitamin D3 03/30 Hx Tablets 1000Unit 1-2 po qday P. - Blegen, 06/12 M.D. Magnesium 03/30 Hx Tablets 500mg 1 po qd P. - Blegen, 06/22 M.D Acidophilus 03/30 Hx Tablets 1 Bu qd P. - Blegen, 06/12 M.D. Calcium 600 03/30 Hx Tablets 600mg 1 po qd P. - Blegen, 06/22.D. Genteal Mild 03/30 Hx Solution 0.2% qd to tid prn dry P. - eyes Blegen, 06/12 M.D. Elimite 12/09 Hx Cream 5% 60G apply from head to P. - soles of Blegen, 03/17 feet. wash . off 8-14 hours later. Mupirocin 11/25 Hx Ointment 2% 22gm apply a 782.9 anatoly Kennedy, - amount to RADIOLOGY AIDE-C 03/30 area(s) daily Benzonatate 11/25 Hx Capsules 200mg 30cap 1 by mouth 786.2 s three times Emiliano, - a day RADIOLOGY AIDE-C 03/30 Azithromycin 04/18 Hx Tablets 250mg 6tabs 2 by mouth 466.0 Janette /2014 every day x K.W. - 1 day, then Teodoro, 05/02 1 by mouth M.D. every day Benzonatate 04/16 Hx Capsules 100mg 60cap 1 or 2 by 466.0 Andreawnt s mouth three RDenzel Rivera, - times a day RADIOLOGY AIDE-C 05/02 as needed cough Proair HFA 04/14 Hx Aerosol 108(90Bas 8.500 2 puffs 466.0 e) gm every 4-6 R. Miguel, - mcg/Act hours as RADIOLOGY AIDE-C 06/12 wheezing or shortness of breath Prednisone 04/14 Hx Tablets 50mg 5tabs one pill by 466.0 Andreawnti mouth daily RDenzel Rivera, - for 5 days RADIOLOGY AIDE-C 04/24 for breathing Benzonatate 04/14 Hx Capsules 100mg 30cap 1 by mouth 466.0 Andreawnt s three times Irasema Rivera, - a day as RADIOLOGY AIDE-C 04/16 needed cough Asmanex 04/14 Hx Aerosol 220mcg/In 1unit 1 puff 466.0 [facility] h s daily for R. Miguel, Metered Doses - breathing RADIOLOGY AIDE-C 05/02 Valacyclovir HCL 02/26 Hx Tablets 1gm 21tab 1 by mouth 053.9 s three times R. Miguel, - daily for 7 RADIOLOGY AIDE-C Bactrim DS 05/14 Hx Tablets 800-160mg 14tab [...] s for otitis R. Miguel, - media RADIOLOGY AIDE-C 10/14 Augmentin 02/21 Hx Tablets 875mg 24tab one pill s twice daily R. Miguel, - with food [facility] 06/28 for sinus 2008 infection Amoxicillin 11/07 Hx Tablets 500mg 30tab 1 po tid x s 10 days P. - Blegen, 02/21 M.D. Augmentin 07/07 Hx Tablets 500mg;125 20tab one po bid mg s for 10 days P. - Blegen, 11/07 M.D. Docusate Sodium 07/07 Hx Tablets 200mg prn P. - Blegen, 06/12 M.D. Testosterone 07/07 Hx Cream P. - Blegen, 03/18 M.D. Macrobid 06/17 Hx Capsules 100mg 14cap one bid x7 s days with K.W. - food for Teodoro 07/07 UTI M.D. Lidex 02/01 Hx Cream 0.05% 30gm apply to affected Veronique, - areas bid M.D. 03/30 Patanol 12/24 Hx Solution 0.1% 5ml One To Two 372.30 gtts OU bid K.W. - roberta Valerio, 03/30 Allergic M.D. Conjunctivi tis Cephalexin 12/17 Hx Capsules 500mg 14cap one tab bid s Veronique, - M.D. 07/07 Prometrium Hx Capsules ?Dose Unknown - 03/30 Acyclovir Hx Capsules 400mg 15cap 1 by mouth Elise / s three times P. - a day x 5 Blegen, 02/14 days as M.D. /2016 needed outbreak Rosetta Hx Tablets 180mg 1 PO qd Unknown / - 05/02 Nasonex Hx Unknown / - 05/02 Estradiol/ Hx Unknown Progesterone Vaginal Cream - 03/30 Vivelle-Dot Hx Patches use patch Unknown twice - weekly 03/30 Fluticasone Hx Suspension 50mcg/Act 2 sprays in Unknown Propionate /0000 each - nostril 06/12 twice daily /2018 Symbicort Hx Aerosol 160-4.5mc Unknown / g/Act - 11/06 Qvar Hx Aerosol 80mcg/Act Unknown - 03/30 Osphena Hx Tablets 60mg Diaz Almazan MD, - Tsering 07/19 Progesterone Hx Capsules 100mg Diaz Almazan MD, - Tsering 07/19 Pataday Hx Solution 0.2% eye drops Jay, 1-2 drops Kang sanchez MD 06/12 allergic /2017 eye sx Estring Hx Ring 2mg Unknown / - 03/30 Prednisone Hx Tablets 5mg Take 6 Unknown /0000 Tablets - Daily For 3 06/12 Days. /2017 Nasacort Allergy Hx Aerosol 55mcg/Act 2 sprays in Unknown 24HR /0000 each - nostril 05/21 every day /2017 Medications Administered in Office Medication Date Status Form Strength Qnty SIG Indications Ordering Provider Vitamin B-12 Administered Injection Lab and Injection-To 018 Office [facility] Vitamin B-12 Administered Injection Lab and Injection-To 018 Office 1000[facility] Immunizations CPT Code Status Date Vaccine Lot # [id number] Given 02/22/2017 Influenza Vaccine High Dose PF [id number] 84284 Given 04/13/2016 Pneumovax 23 (PPSV23) 65+ years or high risk 2 to [id number] 65 year old 40980 Given 03/13/2016 Influenza Virus Vaccine, Quadrivalent, 3 Yr > [id number] Quad, Preserv Free 02000 Given 04/14/2015 Prevnar-13 Pneumococcal Conjugate Vaccine [id number] 04540 Given 03/30/2015 Tdap (Adacel) [id number] 23086 Given 02/26/2015 Influenza Virus Vaccine, Quadrivalent, 3 Yr > [id number] Quad, Preserv Free 10882 Given 01/14/2015 Zoster Vaccine [id number] 36835 Given 03/24/2014 Influenza Virus Vaccine, Quadrivalent, 3 Yr > [id number] Quad, Preserv Free 92804 Given 03/13/2012 Influenza Vaccine-Preservative Free 3 Yrs And [id number] Above 54556 Given 02/27/2011 Zoster Vaccine [id number] 64700 Given 09/04/2010 Influenza Vaccine-Preservative Free 3 Yrs And Above Vital Signs Date Vital Result Comment 11/17/2017 Weight 151.00 lb Weight in kg's 68.494 BP Systolic 106 mmHg BP Diastolic 62 mmHg Heart Rate 69 /min Body Temperature 97.4 F Respiratory Rate 18 /min O2 % BldC Oximetry 98 % 10/15/2017 Weight 151.00 lb Weight in kg's 68.494 BP Systolic 102 mmHg BP Diastolic 72 mmHg Heart Rate 69 /min Body Temperature 98.0 F Respiratory Rate 15 /min Height 65.5 inches 5'5.50" BMI (Body Mass Index) 24.7 kg/m2 O2 % BldC Oximetry 97 % 06/12/2017 BP Systolic 130 mmHg BP Diastolic [...] Test Date Test Result H/L Range Note Laboratory test finding 10/15/2017 TSH (Thyroid Stim 0.87 mcIU/mL 0.34- 5.60 1 Horm) Vitamin D Total 25(Oh) 37.0 ng/mL 20-50 2 Vitamin B12 240 pg/mL 180-914 3 Laboratory test finding 06/27/2017 Partial Thrombo Time 32.0 seconds 26.0 -36.3 PTT D Dimer Quantitative < 200 ng/mL Less Than 230 4 CKMB 06/27/2017 CKMB ng/mL 2.4 ng/mL 0.6-6.3 Laboratory test finding 06/27/2017 Magnesium 2.5 mg/dL 1.9-2.7 Creatine Kinase 48 U/L 10-223 Troponin-I (TnI) 0.00 ng/mL <0.04 Laboratory test finding 06/27/2017 Troponin-I (TnI) 0.00 ng/mL <0.04 Urinalysis Profile 06/27/2017 Urine Color Straw Urine Appearance Clear Urine Specific Otis 1.005 Low 1.010-1.030 Urine pH 7.0 5-9 Urine Urobilinogen Negative Negative Urine Ketones Negative Negative Urine Protein Negative Negative Urine Leukocytes Negative Negative Urine Blood Negative Negative Urine Nitrite Negative Negative Urine Bilirubin Negative Negative Urine Glucose Negative Negative Comp Metabolic Panel 06/27/2017 Sodium 138 mmol/L 133-145 Potassium 4.2 mmol/L 3.5-5.0 Chloride 102 mmol/L 101-111 Co2 Carbon Dioxide 30 mmol/L 22-32 Anion Gap 6 mmol/L 2-11 Glucose 89 mg/dL 70-100 Blood Urea Nitrogen 20 mg/dL 6-24 Creatinine 0.69 mg/dL 0.51-0.95 BUN/Creatinine Ratio 29.0 High 8-20 Calcium 9.5 mg/dL 8.6-10.3 Total Protein 7.0 g/dL 6.4-8.9 Albumin 4.2 g/dL 3.2-5.2 Globulin 2.8 g/dL 2-4 Albumin/Globulin Ratio 1.5 1-3 Total Bilirubin 0.40 mg/dL 0.2-1.0 Alkaline Phosphatase 59 U/L 34-104 Alt 20 U/L 7-52 Ast 22 U/L 13-39 Egfr Non- 85.1 >60 Egfr 109.5 >60 5 CBC Auto Diff 06/27/2017 White Blood Count 5.2 10^3/uL 3.5-10.8 Red Blood Count 4.22 10^6/uL 4.0-5.4 Hemoglobin 13.2 g/dL 12.0-16.0 Hematocrit 38 % 35-47 Mean Corpuscular Volume 91 fL 80-97 Mean Corpuscular Hemoglobin 31 pg 27-31 Mean Corpuscular HGB Conc 34 g/dL 31-36 Red Cell Distribution Width 13 % 10.5-15 Platelet Count 274 10^3/uL 150-450 Mean Platelet Volume 9 um3 7.4-10.4 Abs Neutrophils 3.1 10^3/uL 1.5-7.7 Abs Lymphocytes 1.4 10^3/uL 1.0-4.8 Abs Monocytes 0.5 10^3/uL 0-0.8 Abs Eosinophils 0.1 10^3/uL 0-0.6 Abs Basophils 0.1 10^3/uL 0-0.2 Abs Nucleated RBC 0 10^3/uL Granulocyte % 59.9 % 38-83 Lymphocyte % 26.8 % 25-47 Monocyte % 9.9 % High 1-9 Eosinophil % 2.1 % 0-6 Basophil % 1.3 % 0-2 Nucleated Red Blood Cells % 0.1 Laboratory test finding 06/27/2017 B-Type Natriuretic Peptide 23 pg/mL 6 BNP Lyme Western Blot 06/12/2017 Lyme Disease IgG Ab WB Negative Negative Lyme Disease IgG Bands Present p41, kDa Lyme Disease IgM Ab WB Negative Negative Lyme Disease IgM Bands Present p41, kDa Lyme Disease Interpretation See Comment 7 Laboratory test finding 06/12/2017 Hepatitis C Antibody Nonreactive Nonreactive 8 Urine DIP 06/12/2017 Leukocytes neg Neg Urine Nitrites neg Neg Urobilinogen norm Norm Total Protein, Urine n eg Neg Urine pH 8 High 5-6 Specific Otis 1.000 Low 1.01-1.02 Urine Ketones neg Neg [...] Egfr Non- 91.2 >60 Egfr 117.3 >60 9 CBC Auto Diff 06/12/2017 White Blood Count [...] Cells % 0 Laboratory test finding 06/12/2017 TSH (Thyroid Stim 1.33 mcIU/mL 0.34- 5.60 10 Horm) Free T4 (Free Thyroxine) 0.91 ng/dL 0.61-1.12 11 Magnesium 2.1 mg/dL 1.9-2.7 12 Laboratory test 10/09/2016 Wound Culture/Sensi SEE RESULT BELOW 13 finding Laboratory test 06/22/2016 TSH (Thyroid Stim Horm) 1.14 mcIU/mL 0.34- 5.60 14 finding Vitamin D Total 25(Oh) 38.2 ng/mL 30-50 15 Comp Metabolic Panel 06/22/2016 Sodium 137 mmol/L [...] Egfr Non- 94.8 >60 Egfr 122.0 >60 16 Urine DIP 03/28/2016 Leukocytes ++ Neg Urine Nitrites NEG Neg Urobilinogen NORM Norm Total Protein, Urine NEG Neg Urine pH 8 High 5-6 Urine Blood 250 High Neg Specific Otis 1.005 Low 1.01-1.02 Urine Ketones NEG Neg Urine Bilirubin NEG Neg Urine Glucose NORM Norm Laboratory test 03/28/2016 Urine Culture And SEE RESULT BELOW 17 finding Sensitivities Laboratory test 11/19/2015 Rheumatoid Factor <15 IU/mL <15 18 finding Vitamin D Total 25(Oh) 44.3 ng/mL 30-50 19 Vitamin B12 875 pg/mL 180-914 20 Connective Tissue Panel 11/19/2015 Anti-Nuclear Antibody 0.1 U 21 Cyclic Citrullinated Peptide <15.6 U 22 Interpretation See Comment 23 Laboratory test finding 11/09/2015 TSH (Thyroid Stim Horm) 2.69 ?IU/mL 0.34-5.60 24 Vitamin D, 1,25 Dihydroxy 86 pg/mL 18-78 25 C Reactive Protein 8.57 mg/L High < 5.00 26 Lyme Western Blot 11/09/2015 Lyme Disease IgG Ab WB Negative Negative Lyme Disease IgG Bands Present p41, kDa Lyme Disease IgM Ab WB Negative Negative Lyme Disease IgM Bands Present No bands detecte <SEE NOTE> kDa 27 Lyme Disease Interpretation See Comment 28 Comp Metabolic Panel 11/09/2015 Sodium 138 mmol/L [...] Egfr Non- 73.3 >60 Egfr 94.2 >60 29 CBC Auto Diff 11/09/2015 White Blood Count [...] 0-2 Nucleated Red Blood Cells % 0.1 Flu Test A, B, Or A & B,Binaxn 07/19/2015 Influenza A Antigen neg Influenza B Antigen neg Laboratory test finding 03/30/2015 TSH (Thyroid Stim Horm) 0.90 ?IU/mL 0.34-5.60 30 CBC Auto Diff 03/30/2015 White Blood Count [...] Egfr Non- 76.6 >60 Egfr 98.5 >60 31 Laboratory test finding 03/30/2015 Magnesium 2.0 mg/dL 1.9-2.7 32 Vitamin D Total 25(Oh) 43.7 ng/mL 30-50 33 Vitamin B12 668 pg/mL 180-914 34 Lipid Profile (Trig/Chol/HDL) 03/30/2015 Triglycerides 75 mg/dL 35 Cholesterol 207 mg/dL 36 HDL Cholesterol 72.9 mg/dL 37 LDL Cholesterol 119 mg/dL 38 CBC Auto Diff 03/27/2014 White Blood Count 4.6 10^3/uL Low 4.8-10.8 39 Red Blood Count 4.17 10^6/uL 4.0-5.4 39 Hemoglobin 13.1 g/dL 12.0-16.0 39 Hematocrit 39 % 35-47 39 Mean Corpuscular Volume 94 fL 80-97 39 Mean Corpuscular Hemoglobin 32 pg High 27-31 39 Mean Corpuscular HGB Conc 34 g/dL 31-36 39 Red Cell Distribution Width 13 % 10.5-15 39 Platelet Count 272 10^3/uL 150-450 39 Mean Platelet Volume 9 um3 7.4-10.4 39 Abs Neutrophils 2.6 10^3/uL 1.5-7.7 39 Abs Lymphocytes 1.4 10^3/uL 1.0-4.8 39 Abs Monocytes 0.4 10^3/uL 0-0.8 39 Abs Eosinophils 0.2 10^3/uL 0-0.6 39 Abs Basophils 0.1 10^3/uL 0-0.2 39 Abs Nucleated RBC 0 10^3/uL 39 Granulocyte % 57.2 % 38-83 39 Lymphocyte % 29.8 % 25-47 39 Monocyte % 7.9 % 1-9 39 Eosinophil % 3.4 % 0-6 39 Basophil % 1.7 % 0-2 39 Nucleated Red Blood Cells % 0 39 Laboratory test 03/27/2014 TSH (Thyroid 2.15 IU/mL 0.34-5.60 39, 40 finding Stimulating Horm) Dhea Sulfate <15.0 g/dL <15-157 39, 41 Estradiol < 20.000 pg/mL 39, 42 Insulin Level 4.8 mcIU/mL 2.6 - 24.9 39, 43 Progesterone 1.3 ng/mL 39, 44 Testosterone Free & 03/27/2014 Free Testosterone ng/dl 0.2 ng/dL 0.3-1.9 39, 45 Total Testosterone 15 ng/dL 8-60 39, 46 Laboratory test finding 03/27/2014 Free T3 2.40 pg/mL Low 2.5-3.9 39, 47 Free T4 0.95 ng/mL 0.61-1.12 39, 48 Vitamin D, 25 Hydroxy 03/27/2014 25-Hydroxy Vitamin D2 <4.0 ng/mL 39 25-Hydroxy Vitamin D3 41 ng/mL 39 25-Hydroxy Vitamin D Total 41 ng/mL 39, 49 Laboratory test finding 06/13/2012 TSH (Thyroid Stimulating 1.49 miu/mL 0.34-5.60 50 Horm) Free T4 1.17 ng/mL 0.61-1.24 51 Free T3 2.94 pg/mL 2.39-6.79 52 Vitamin D, 25 Hydroxy 06/13/2012 25-Hydroxy Vitamin D2 <4.0 ng/mL 25-Hydroxy Vitamin D3 38 ng/mL 25-Hydroxy Vitamin D Total 38 ng/mL 53 Laboratory test finding 03/03/2011 TSH 0.78 MIU/ML [...] mmol/L 22-32 Anion Gap 8.0 mmol/L 2-11 54 Glucose 84 mg/dL 70-100 BUN 17 mg/dL 6-24 Creatinine 0.71 mg/dL 0.50-1.40 One Over Creatinine 1.40 BUN/Creatinine Ratio 23.9 High 8-20 Calcium 9.5 mg/dL 8.1-9.9 Total Protein 7.0 GM/DL 6.2-8.1 Albumin 4.0 GM/DL 3.6-5.4 Globulin 3.0 GM/DL 2-4 Albumin/Globulin Ratio 1.3 1-3 Bilirubin Total 0.8 mg/dL 0.4-1.5 55 Alkaline Phosphatase 58 U/L 30-110 Alt (SGPT) 19 U/L 14-54 Ast (Sgot) 29 U/L 12-42 eGFR Non- 84.3 > 60 eGFR 108.4 > 60 56 Laboratory test finding 08/13/2010 Troponin-I 0.01 NG/ML 0-0.06 57 TSH 0.95 MIU/ML 0.34-5.60 Urine Culture & Sensitivi 05/14/2010 Urine Culture Sensitivi NF1 58 Urine DIP 05/14/2010 Leukocytes + Neg Urine Nitrites NEG Neg Urine pH 5 5-6 Total Protein, Urine NEG Neg Urine Glucose NORM Norm Urine Ketones NEG Neg Urobilinogen NORM Norm Urine Bilirubin NEG Neg Urine Blood NEG Neg Specific Otis N/A Low 1.01-1.02 Laboratory test finding 03/18/2010 TSH 0.78 MIU/ML 0.34-5.60 Thyroxine 8.1 g/dL 5-12 T3 Free 2.57 pg/mL 2.39-6.79 CA 125 (Ovarian Cancer Ag) 13.5 U/ML 2.0-35.0 59 Vitamin D, 25 Hydroxy 03/18/2010 25-Hydroxy Vitamin D2 <4.0 ng/mL () 25-Hydroxy Vitamin D3 49 ng/mL () 25-Hydroxy Vitamin D Total 49 ng/mL () 60 Laboratory test finding 03/18/2010 Vitamin D, 1,25 47 pg/mL 18-78 61 Dihydroxy Laboratory test finding 04/16/2009 TSH 1.32 MIU/ML 0.34-5.60 62 Thyroxine Free 0.95 NG/ML 0.61-1.24 62, 63 Vitamin D.25 Hydroxy 04/16/2009 25-Hydroxy Vitamin D2 <4.0 ng/mL () 62 25-Hydroxy Vitamin D3 38 ng/mL () 62 25-Hydroxy Vitamin D Total 38 ng/mL () 62, 64 Laboratory test finding 05/12/2008 Vitamin D, 25 Oh 45.3 ng/mL 32.0- 100.0 65 Laboratory test finding 10/15/2007 Estradiol 40.6 pg/mL 66, 67 Progesterone 7.34 ng/mL 66, 68 Testosterone, Total 28.7 ng/dL 14.0-76.0 66 TSH (Thyrotropin) 1.600 uIU/ml 0.350-5.500 66 T-4 Free 1.3 ng/dL 0.8-1.8 66 Vitamin D, 25 Oh 38.5 ng/mL 32.0-100.0 66, 69 Laboratory test finding 07/15/2007 Vitamin D, 25 Oh 34.0 ng/mL 32.0- 100.0 70, 71 TSH (Thyrotropin) 2.270 uIU/ml 0.350-5.500 70 Estradiol 19.7 pg/mL 70, 72 Progesterone 4.49 ng/mL 70, 73 Free+Total Testosterone 07/15/2007 Testosterone, Total 24.9 ng/dL 14.0- 76.0 70 Sex Hormone Bind Glob 74 nmol/L 18-114 70 Free Testosterone, Calc 2.6 pg/mL 1.8-17.4 70, 74 Testo, Bioavail, Calc 6.0 ng/dL 4.2-41.0 70, 75 CBC 05/23/2007 WBC 5.2 x103 4.3-10.9 76 RBC 4.04 x106 3.80-5.30 76 Hemoglobin 12.5 g/dL 11.8-15.8 76 Hematocrit 37.7 % 35.0-47.0 76 MCV 93.3 fl 82.0-98.0 76 MCH 30.9 pg 27.5-33.5 76 MCHC 33.2 g/dL 32.0-36.0 76 RDW 12.5 % 11.5-14.5 76 Platelet Count 295 x103 130-400 76 MPV 11.1 fl High 6.5-10.5 76 Segmented Neutrophils 54.8 % 44.0-74.0 76 Lymphocytes 30.0 % 15.0-45.0 76 Monocytes 8.8 % 2.0-13.0 76 Eosinophils 5.4 % 0.0-6.0 76 Basophils 1.0 % 0.0-2.0 76 Neutrophil Absolute 2.8 x103 1.4-7.0 76 Lymphocytes Absolute 1.6 x103 1.0-3.4 76 Monocyte Absolute 0.5 x103 0.2-1.0 76 Eosinophil Absolute 0.3 x103 0.0-0.5 76 Basophil Absolute 0.1 x103 0.0-0.2 76 Laboratory test finding 05/23/2007 TSH (Thyrotropin) 1.420 uIU/ml 0.350- 5.500 76 T-4 Free 1.1 ng/dL 0.8-1.8 76 Comprehensive Metabolic 05/23/2007 Glucose 79 mg/dL 70-100 76 BUN 20 mg/dL High 4-18 76 Creatinine, Serum 0.9 mg/dL 0.5-1.2 76 Sodium 140 mmol/L 136-146 76 Potassium 4.5 mmol/L 3.5-5.3 76 Chloride 106 mmol/L 98-110 76 Carbon Dioxide 25 mmol/L 20-32 76 Albumin 4.0 g/dL 3.5-4.7 76 Protein, Total 6.5 g/dL 6.4-8.2 76 Calcium 9.2 mg/dL 8.4-10.4 76 Alkaline Phosphatase 48 U/L 10-118 76 Sgot (Ast) 22 U/L 3-40 76 SGPT (Alt) 17 U/L 7-50 76 Bilirubin, Total 0.40 mg/dL 0.30-1.20 76 Laboratory test 05/23/2007 GFR (Calculated) >60 76, 77 finding Laboratory test 04/23/2007 TSH (Thyrotropin) 4.610 uIU/ml 0.350-5.500 78 finding T-4 Free 1.1 ng/dL 0.8-1.8 78 Comprehensive Metabolic 02/21/2007 Glucose 85 mg/dL 70-100 79 BUN 19 mg/dL High 4-18 79 Creatinine, Serum 0.9 mg/dL 0.5-1.2 79 Sodium 137 mmol/L 136-146 79 Potassium 4.4 mmol/L 3.5-5.3 79 Chloride 101 mmol/L 98-110 79 Carbon Dioxide 27 mmol/L 20-32 79 Albumin 4.6 g/dL 3.5-4.7 79 Protein, Total 7.5 g/dL 6.4-8.2 79 Calcium 10.1 mg/dL 8.4-10.4 79 Alkaline Phosphatase 56 U/L 10-118 79 Sgot (Ast) 23 U/L 3-40 79 SGPT (Alt) 17 U/L 7-50 79 Bilirubin, Total 0.20 mg/dL Low 0.30-1.20 79 CBC 02/21/2007 WBC 6.3 x103 4.3-10.9 79 RBC 4.49 x106 3.80-5.30 79 Hemoglobin 13.8 g/dL 11.8-15.8 79 Hematocrit 40.7 % 35.0-47.0 79 MCV 90.6 fl 82.0-98.0 79 MCH 30.7 pg 27.5-33.5 79 MCHC 33.9 g/dL 32.0-36.0 79 RDW 13.4 % 11.5-14.5 79 Platelet Count 319 x103 130-400 79 MPV 10.9 fl High 6.5-10.5 79 Segmented Neutrophils 54.6 % 44.0-74.0 79 Lymphocytes 30.6 % 15.0-45.0 79 Monocytes 7.8 % 2.0-13.0 79 Eosinophils 5.6 % 0.0-6.0 79 Basophils 1.4 % 0.0-2.0 79 Ig% 0.0 79 Neutrophil Absolute 3.4 x103 1.4-7.0 79 Lymphocytes Absolute 1.9 x103 1.0-3.4 79 Monocyte Absolute 0.5 x103 0.2-1.0 79 Eosinophil Absolute 0.4 x103 0.0-0.5 79 Basophil Absolute 0.1 x103 0.0-0.2 79 Laboratory test finding 02/21/2007 TSH (Thyrotropin) 8.680 uIU/ml High 0.350-5.500 79 T-4 Free 0.9 ng/dL 0.8-1.8 79 GFR (Calculated) >60 79, 80 Laboratory test finding 11/24/2006 Strep Screen NEG [...] Bilirubin NEG Neg Urine Blood NEG Neg Comprehensive Metabolic 11/19/2002 Glucose 74 mg/dL 61.0 - 110.0 BUN 15 mg/dL 4.0 - 18.0 Creatinine, Serum 0.7 mg/dL 0.5 - 1.2 Sodium 138 mmol/L 136.0 - 145.0 Potassium 4.5 mmol/L 3.5 - 5.3 81 Chloride 102 mmol/L 98.0 - 107.0 Carbon Dioxide 28 mmol/L 23.0 - 33.0 Albumin 3.9 g/dL 3.6 - 4.5 Protein, Total 7.2 g/dL 6.2 - 8.0 Calcium 9.3 mg/dL 8.4 - 10.2 Alkaline Phosphatase 57 U/L 42.0 - 127.0 Sgot (Ast) 26 U/L 9.0 - 37.0 SGPT (Alt) 26 U/L 7.0 - 42.0 Bilirubin, Total 0.40 mg/dL 0.2 - 1.3 CBC 11/19/2002 WBC 5.8 x10*3 4.3 - [...] Basophil Absolute 0.0 x10*3 0.0 - 0.2 Laboratory test finding 11/19/2002 Hemoglobin A1c 4.8 % 82 TSH (Thyrotropin) 1.85 uIU/ml 0.49 - 4.67 Laboratory test finding 11/19/2002 Glucose By Moniter 97 78-110 Laboratory test finding 09/20/2001 Urine Culture FINAL 83 Urine DIP 09/20/2001 Leukocytes NEG Neg Urine Nitrites NEG Neg Urine pH 5 5-6 Total Protein, Urine NEG Neg Urine Glucose NORM Norm Urine Ketones NEG Neg Urobolinogen NORM Norm Urine Bilirubin NEG Neg Urine Blood NEG Neg Specific Otis N/ Low 1.01-1.02 1 [id number] 2 [id number] 3 Normal Range 180 to 914 Indeterminate Range 145 to 180 Deficient Range <145 4 Please note: The following may produce a false positive D Dimer test: - Rheumatoid factor greater than 60 IU/ml - Plasma hemoglobin greater than 0.05 gm/dl - Bilirubin greater than 50 mg/dl - Lipids greater than 1000 mg/dl - FDP greater than 20 ug/ml 5 Because ethnic data is not always readily [...] 15-29 5 Kidney failure <15 (or dialysis) 6 >100 to <200 pg/mL: likely compensated congestive heart failure (CHF) 200 to 400 pg/mL: likely moderate CHF >400 pg/mL: likely moderate to severe CHF 7 Specific serologic response to B. burgdorferi infection [...] screening test (e.g., EIA). Test Performed by: [facility] [address] [facility], [place] [address] 8 [id number] 9 Because ethnic data is not always readily [...] 15-29 5 Kidney failure <15 (or dialysis) 10 [id number] 11 [id number] 12 [id number] 13 SEE RESULT BELOW Name: ENOC EDWARDS Dee Dee : [address]: Vanessa Kennedy NP Acct: [id number] Unit: [id number] AGE: 66 Location: [facility] Re10/09/16 SEX: F Status: REG REF SPEC: [id number] LOR: 10/09/16-212 [facility] DR: Vanessa Kennedy NP REQ: [id number] RECD: 10/09/16 STATUS: COMP _ SOURCE: WOUND SPDESC: ORDERED: Culture Stain COMMENTS: [id number] Specimen Description trunk Procedure Result Reported Site Wound/Misc Gram Stain Final 10/10/16- 820 ML 3+ Epithelial Cells No Neutrophils Observed No Organisms Seen Wound/Misc Culture Final 10/11/16819 ML Organism 1 NORMAL AMADOU Quantity 1+ * ML - MAIN LAB ([facility]1) . END OF REPORT * ML=Testing performed at Main Lab DEPARTMENT OF PATHOLOGY, [address] [place] [address] Brian Goldstein M.D. Director [facility] # [id number] 14 [id number] 15 [id number] 16 Because ethnic data is not always readily [...] 15-29 5 Kidney failure <15 (or dialysis) 17 SEE RESULT BELOW Name: ENOC EDWARDS Dee Dee : [address]: Vanessa Kennedy NP Acct: [id number] Unit: [id number] AGE: 66 Location: [facility] Re03/28/16 SEX: F Status: REG REF SPEC: [id number] LOR: 03/28/167 [facility] DR: Vanessa Kennedy NP REQ: [id number] RECD: 03/28/16 STATUS: COMP _ SOURCE: URINE SPDESC: ORDERED: Urine Culture COMMENTS: [id number] Procedure Result Reported Site Urine Culture Final 03/29/16- 1219 ML No Growth (<1,000 CFU/mL) * ML - [facility] ([facility]) . END OF REPORT * ML=Testing performed at Main Lab DEPARTMENT OF PATHOLOGY, [address] [place] [address] Brian Goldstein M.D. Director [facility] # [id number] 18 Test Performed by: [place] [address] Licensed Final [employer] Agents: Martínez Catherine II, M.D., Ph.D. 19 [id number] 20 Normal Range 180 to 914 Indeterminate Range 145 to 180 Deficient Range <145 21 REFERENCE VALUE <=1.0 (Negative) 22 REFERENCE VALUE <20.0 (Negative) 23 Tests for antibodies to dsDNA and YESSICA antigens are not performed automatically unless the KAREL result is > or= 3.0 U. Studies performed at [facility] indicate that positive KAREL results <3.0 U are rarely accompanied by positive second order tests. Test Performed by: [place] [address] Licensed Final [employer] Agents: Martínez Catherine II, M.D., Ph.D. 24 [id number] 25 Test Performed by: [place] [address] Licensed Final Exp[employer] Agents: Martínez Catherine II, M.D., Ph.D. 26 Acute inflammation: >10.00 27 No bands detected 28 Specific serologic response to B. burgdorferi infection [...] screening test (e.g., EIA). Test Performed by: [place] [address] Licensed Final [employer] Agents: Martínez Catherine II, M.D., Ph.D. 29 Because ethnic data is not always readily [...] 15-29 5 Kidney failure <15 (or dialysis) 30 FASTING Had a piece of toast and coffee with half and half this morning for subhash akfast at 0800. 31 Because ethnic data is not always readily [...] 15-29 5 Kidney failure <15 (or dialysis) 32 FASTING Had a piece of toast and coffee with half and half this morning for subhash akfast at 0800. 33 FASTING Had a piece of toast and coffee with half and half this morning for subhash akfast at 0800. 34 Normal Range 180 to 914 Indeterminate Range 145 to 180 Deficient Range <145 35 Desirable <150 Borderline high 150-199 High 200-499 Very High >500 36 Desirable <200 Borderline high 200-239 High >239 37 Low <40 Desirable: 40-60 High: >60 38 Desirable: <100 mg/dL Near Optimal: 100-129 mg/dL Borderline High: 130-159 mg/dL High: 160-189 mg/dL Very High: >189 mg/dL 39 ordered by Trino BradfordWil RPA-C ~~ordered by Trino BradfordWil RPA-C ~~ ordered by Trino Luz RPA-C ~~ordered by Trino Luz RPA-C ~~ordered by Trino Wil RPA-C ~~ordered by Trino Wil RPA-C ~~ordered by Trino Wil RPA-C ~~ordered by Trino Wil RPA-C ~~ordered by Trino Wil RPA-C ~~ordered by Trino Wil RPA-C ~~ordered by Trino Wil RPA-C 40 ordered by Trino Wil RPA-C 41 Test Performed by: [place] [address] Licensed Final [employer] Agents: Anatoliy Barrios M.D. 42 Postmenopausal Females < 20 Ovulating females: by day in cycle relative to LH Peak Follicular phase - 12 10-50 - 4 60-200 Mid-cycle - 1 120-375 Luteal phase + 2 50-155 + 6 60-260 + 12 15-115 43 Test Performed by: [place] [address] Licensed Final Expense Agents: Anatoliy Barrios M.D. 44 Female reference ranges for Progesterone: Follicular phase.......0.3 - 1.5 ng/ml Mid-luteal phase.......5.2 - 18.5 ng/ml Postmenopausal.........< 0.8 ng/ml 1st trimester.........4.7 - 50.0 ng/ml 2nd trimester.........19.4 - 45.3 ng/ml 45 ADDITIONAL INFORMATION Testing performed by [facility]. 46 ADDITIONAL INFORMATION Testing performed by Liquid Chromatography-Tandem Mass Spectrometry (LC-MS/MS). Test Performed by: [place] [address] Licensed Final Expense Agents: Anatoliy Barrios M.D. 47 ordered by Trino Wil RPA-C 48 ordered by Trino Wil RPA-C 49 REFERENCE VALUE 25-HYDROXY D TOTAL (D2+D3) Optimum levels in the healthy population are 20-50, patients with bone disease may benefit from higher levels within this range. Test Performed by: [place] [address] Licensed Final [employer] Agents: Anatoliy Barrios M.D. 50 ordered by trino luz 51 ordered by trino luz 52 ordered by trino luz 53 -- REFERENCE VALUE -- 25-HYDROXY D TOTAL (D2+D3) Optimum levels in the normal population are 25-80 Test Performed by: [place] [address] Licensed Final Exp[employer] Agents: Nakul Cortez III, M.D. 54 Anion gap measurement may be of limited value in the presence of any alkalosis, especially in a combined acid base disorder. . 55 A metabolite of Naproxen, O-desmethylnaproxen, has been shown to interfere with the Jendrassik-Shahram method for measuring total bilirubin. Samples from patients who have taken Naproxen have shown spurious elevation in total bilirubin levels. 56 Because ethnic data is not always readily [...] 15-29 5 Kidney failure <15 (or dialysis) 57 New Reference Range and Interpretation effective 02/28/2002 TnI (ng/ml) INTERPRETATION Less Than 0.06 ng/mL NOT SUPPORTIVE OF DIAGNOSIS OF IA 0.06 - 0.50 ng/ml INDETERMINATE: SUGGEST SERIAL STUDIES IF CLINICALLY INDICATED. Greater than 0.5 ng/mL CONSISTENT WITH DIAGNOSIS OF IA . 58 SPECIMEN CONTAINS NORMAL URETHRAL OR PERINEAL AMADOU AND DOES NOT SUGGEST URINARY TRACT INFECTION 59 The CA 125 assay is not recommended as a cancer screening test, but rather as an aid in monitoring response to therapy for patients with epithelial ovarian cancer. Serial testing for patients CA 125 assay values should be used in conjunction with other methods used for screening ovarian cancer. . 60 -- REFERENCE VALUE -- 25-HYDROXY D TOTAL (D2+D3) Optimum levels in the normal population are 25-80 Test Performed by: [facility] Dpt of Lab Med and Pathology [address] [place] [address] Licensed Final Exp[employer] Agents: Nakul Cortez III, M.D. 61 Test Performed by: [facility] Dpt of Lab Med and Pathology [address] [place] [address] Licensed Final Exp[employer] Agents: Nakul Cortez III, M.D. 62 FAX RESULTS TO AT FAX NUMBER [phone] 63 PLEASE NOTE NEW REFERENCE RANGES. 64 -- REFERENCE VALUE -- 25-HYDROXY D TOTAL (D2+D3) Optimum levels in the normal population are 25-80 Test Performed by: [facility] Dpt of Lab Med and Pathology [address] [place] [address] Licensed Final Expense Agents: Nakul Cortez III, M.D. 65 Recent studies consider the lower limit of 32.0 ng/mL to be a threshold for optimal health. Horne BW. J Nutr. 2005 Jun;135(2):317-22. 66 TEST FREE+TOTAL TESTOSTERONE WAS ADDED ON 10/15/07 AT 23:48 BY TMR. Please fax results to Trino Pena [phone] 67 . Normally Menstruating Females: Follicular Phase: 18.9-246.7 Mid-Cycle Peak : 35.5-570.8 Luteal Phase : 22.4-256.0 Postmenopausal........: <7.0-44.5 Males.................: 11.6-41.2 . 68 FEMALES: Normally Menstruating: Follicular Phase: 0.15-1.40 Luteal Phase : 3.34-25.56 Mid-Luteal Phase: 4.44-28.03 : First Trimester : 11.-90.00 Second Trimester: 25.55-89.40 Third Trimester : 48.40-422.50 Postmenopausal......: ND*-0.73 *ND=not detectible MALES.................: 0.28-1.22 . 69 Recent studies consider the lower limit of 32.0 ng/mL to be a threshold for optimal health. Horne BW. J Nutr. 2005 Jun;135(2):317-22. 70 please send results to trino luz; fax#[phone] [place] [phone] 71 Recent studies consider the lower limit of 32.0 ng/mL to be a threshold for optimal health. Horne BW. J Nutr. 2005 Jun;135(2):317-22. 72 . Normally Menstruating Females: Follicular Phase: 18.9-246.7 Mid-Cycle Peak : 35.5-570.8 Luteal Phase : 22.4-256.0 Postmenopausal........: <7.0-44.5 Males.................: 11.6-41.2 . 73 FEMALES: Normally Menstruating: Follicular Phase: 0.15-1.40 Luteal Phase : 3.34-25.56 Mid-Luteal Phase: 4.44-28.03 : First Trimester : 11.22-90.00 Second Trimester: 25.55-89.40 Third Trimester : 48.40-422.50 Postmenopausal......: ND*-0.73 *ND=not detectible MALES.................: 0.28-1.22 . 74 . Normally Menstruating Females: 1.8-17.4 Post Menopausal- with Hormone Replacement Therapy: 1.0-16.4 without Hormone Replacement Therapy: 1.9-20.6 75 Normally Menstruating Females: 4.2-41.0 Post Menopausal- with Hormone Replacement Therapy: 2.4-48.0 without Hormone Replacement Therapy: 4.4-48.0 76 FASTING 77 mL/min/1.73m2 . Normal Function or Mild Renal [...] drugs that are excreted by the kidneys. 78 TEST LABORATORY RESULTS COPY WAS ADDED ON 04/23/07 AT 23:47 BY [facility]. PLEASE SEND RESULT TO [address] DOMÍNGUEZ [address] DR LUZ 80 mL/min/1.73m2 . Normal Function or Mild Renal [...] drugs that are excreted by the kidneys. 81 Effective September 18, 2002 please note change in reference range. 82 HGBA1C (%) GLUCOSE CONTROL >8 Action Suggested 7-8 Good Control <7 Goal 6-7 Near Normal Glycem <6 Non-diabetic Level . 83 Source: URINE,VOIDED No growth. Procedures Date CPT Code Description Status Comment 11/12/2017 31012 Multiple Allergy Shot Completed Administrat 11/06/2017 90230 Therapeutic,Prophylactic,Or Completed Diagnostic Inj,SC/Im Specify Drug 10/29/2017 75424 Multiple Allergy Shot Completed Administrat 10/24/2017 76714 Therapeutic,Prophylactic,Or Completed Diagnostic Inj,SC/Im Specify Drug 10/15/2017 62149 Multiple Allergy Shot Completed Administrat 10/03/2017 71939 Multiple Allergy Shot Completed Administrat 09/19/2017 91882 Multiple Allergy Shot Completed Administrat 08/22/2017 01504 Multiple Allergy Shot Completed Administrat 08/09/2017 70792 Multiple Allergy Shot Completed Administrat 07/24/2017 21115 Multiple Allergy Shot Completed Administrat 07/09/2017 32144 Multiple Allergy Shot Completed Administrat 06/12/2017 54047 Multiple Allergy Shot Completed Administrat 06/12/2017 35227 EKG, at Least 12 Leads Completed w/Interpretation and Report 05/29/2017 34902 Multiple Allergy Shot Completed Administrat 05/07/2017 85896 Multiple Allergy Shot Completed Administrat 04/23/2017 86075 Multiple Allergy Shot Completed Administrat 04/09/2017 59715 Multiple Allergy Shot Completed Administrat 03/23/2017 25586 Multiple Allergy Shot Completed Administrat 03/08/2017 37406 Multiple Allergy Shot Completed Administrat 02/22/2017 45224 Multiple Allergy Shot Completed Administrat 01/30/2017 58795 Multiple Allergy Shot Completed Administrat 01/16/2017 51497 Multiple Allergy Shot Completed Administrat 01/02/2017 59289 Multiple Allergy Shot Completed Administrat 12/19/2016 31222 Multiple Allergy Shot Completed Administrat 12/07/2016 87573 Multiple Allergy Shot Completed Administrat 11/23/2016 62027 Multiple Allergy Shot Completed Administrat 11/09/2016 14127 Multiple Allergy Shot Completed Administrat 10/26/2016 13527 Multiple Allergy Shot Completed Administrat 10/04/2016 20999 Multiple Allergy Shot Completed Administrat 09/20/2016 19932 Multiple Allergy Shot Completed Administrat 08/28/2016 80259 Multiple Allergy Shot Completed Administrat 08/14/2016 71138 Multiple Allergy Shot Completed Administrat 07/20/2016 69801 Multiple Allergy Shot Completed Administrat 07/06/2016 36687 Multiple Allergy Shot Completed Administrat 06/22/2016 59130 Multiple Allergy Shot Completed Administrat 06/07/2016 95012 Multiple Allergy Shot Completed Administrat 04/28/2016 67582 Multiple Allergy Shot Completed Administrat 04/13/2016 39311 Multiple Allergy Shot Completed Administrat 03/13/2016 01665 Multiple Allergy Shot Completed Administrat 02/28/2016 23678 Multiple Allergy Shot Completed Administrat 01/24/2016 49927 Multiple Allergy Shot Completed Administrat 12/24/2015 96909 Multiple Allergy Shot Completed Administrat 12/07/2015 57041 Multiple Allergy Shot Completed Administrat 11/05/2015 38468 Multiple Allergy Shot Completed Administrat 10/22/2015 37914 Multiple Allergy Shot Completed Administrat 09/17/2015 30409 Multiple Allergy Shot Completed Administrat 08/17/2015 82624 Multiple Allergy Shot Completed Administrat 07/05/2015 13378 Multiple Allergy Shot Completed Administrat 06/02/2015 91769 Multiple Allergy Shot Completed Administrat 04/28/2015 82099 Multiple Allergy Shot Completed Administrat 04/14/2015 16043 Multiple Allergy Shot Completed Administrat 03/30/2015 81360 EKG, at Least 12 Leads Completed w/Interpretation and Report 03/15/2015 20510 Multiple Allergy Shot Completed Administrat 02/26/2015 93650 Multiple Allergy Shot Completed Administrat 02/12/2015 52386 Multiple Allergy Shot Completed Administrat 01/28/2015 68796 Multiple Allergy Shot Completed Administrat 01/14/2015 96745 Multiple Allergy Shot Completed Administrat 12/31/2014 08695 Multiple Allergy Shot Completed Administrat 11/25/2014 13597 Multiple Allergy Shot Completed Administrat 10/28/2014 63407 Multiple Allergy Shot Completed Administrat 10/14/2014 27333 Multiple Allergy Shot Completed Administrat 09/30/2014 23545 Multiple Allergy Shot Completed Administrat 09/16/2014 09193 Multiple Allergy Shot Completed Administrat 09/02/2014 88064 Multiple Allergy Shot Completed Administrat 08/19/2014 62349 Multiple Allergy Shot Completed Administrat 08/05/2014 57659 Multiple Allergy Shot Completed Administrat 07/17/2014 31956 Multiple Allergy Shot Completed Administrat 07/03/2014 25299 Multiple Allergy Shot Completed Administrat 06/17/2014 34570 Multiple Allergy Shot Completed Administrat 05/19/2014 47705 Multiple Allergy Shot Completed Administrat 05/05/2014 94868 Multiple Allergy Shot Completed Administrat 04/21/2014 29187 Multiple Allergy Shot Completed Administrat 04/07/2014 87034 Multiple Allergy Shot Completed Administrat 03/24/2014 30762 Multiple Allergy Shot Completed Administrat 03/10/2014 29220 Multiple Allergy Shot Completed Administrat 02/24/2014 37204 Multiple Allergy Shot Completed Administrat 02/10/2014 84791 Multiple Allergy Shot Completed Administrat 01/27/2014 97902 Multiple Allergy Shot Completed Administrat 01/13/2014 86753 Multiple Allergy Shot Completed Administrat 12/29/2013 04660 Multiple Allergy Shot Completed Administrat 12/10/2013 33803 Multiple Allergy Shot Completed Administrat 11/24/2013 38053 Multiple Allergy Shot Completed Administrat 11/05/2013 45909 Multiple Allergy Shot Completed Administrat 10/23/2013 38099 Multiple Allergy Shot Completed Administrat 10/09/2013 25219 Multiple Allergy Shot Completed Administrat 09/25/2013 Colonoscopy Completed Diverticulosis- with Dr. Gaxiola in [place]. 09/25/2013 81906 Multiple Allergy Shot Completed Administrat 09/11/2013 53032 Multiple Allergy Shot Completed Administrat 08/28/2013 03723 Multiple Allergy Shot Completed Administrat 08/14/2013 94954 Multiple Allergy Shot Completed Administrat 07/24/2013 56038 Multiple Allergy Shot Completed Administrat 07/10/2013 57908 Multiple Allergy Shot Completed Administrat 06/10/2013 81847 Multiple Allergy Shot Completed Administrat 05/26/2013 62100 Multiple Allergy Shot Completed Administrat 05/12/2013 03136 Multiple Allergy Shot Completed Administrat 04/28/2013 63894 Multiple Allergy Shot Completed Administrat 04/11/2013 27171 Multiple Allergy Shot Completed Administrat 03/27/2013 48292 Multiple Allergy Shot Completed Administrat 03/14/2013 38798 Multiple Allergy Shot Completed Administrat 02/19/2013 84438 Multiple Allergy Shot Completed Administrat 02/05/2013 18215 Multiple Allergy Shot Completed Administrat 01/14/2013 55678 Multiple Allergy Shot Completed Administrat 12/31/2012 26603 Multiple Allergy Shot Completed Administrat 12/05/2012 88622 Multiple Allergy Shot Completed Administrat 11/13/2012 60528 Multiple Allergy Shot Completed Administrat 10/31/2012 27772 Multiple Allergy Shot Completed Administrat 10/16/2012 34262 Multiple Allergy Shot Completed Administrat 10/01/2012 17115 Multiple Allergy Shot Completed Administrat 09/17/2012 08333 Multiple Allergy Shot Completed Administrat 09/04/2012 29482 Multiple Allergy Shot Completed Administrat 08/19/2012 04492 Multiple Allergy Shot Completed Administrat 08/06/2012 42001 Multiple Allergy Shot Completed Administrat 07/18/2012 12882 Multiple Allergy Shot Completed Administrat 07/10/2012 59917 Multiple Allergy Shot Completed Administrat 06/26/2012 69590 Multiple Allergy Shot Completed Administrat 06/13/2012 09988 Multiple Allergy Shot Completed Administrat 05/29/2012 04977 Multiple Allergy Shot Completed Administrat 05/08/2012 47881 Multiple Allergy Shot Completed Administrat 04/25/2012 12362 Multiple Allergy Shot Completed Administrat 03/27/2012 67588 Multiple Allergy Shot Completed Administrat 03/13/2012 82845 Multiple Allergy Shot Completed Administrat 02/22/2012 78359 Multiple Allergy Shot Completed Administrat 02/15/2012 93115 Multiple Allergy Shot Completed Administrat 02/08/2012 78601 Multiple Allergy Shot Completed Administrat 02/02/2012 05936 Multiple Allergy Shot Completed Administrat 01/26/2012 82185 Multiple Allergy Shot Completed Administrat 01/18/2012 30385 Multiple Allergy Shot Completed Administrat 01/09/2012 68980 Multiple Allergy Shot Completed Administrat 01/02/2012 77585 Multiple Allergy Shot Completed Administrat 12/27/2011 18433 Multiple Allergy Shot Completed Administrat 12/20/2011 55271 Multiple Allergy Shot Completed Administrat 12/11/2011 97551 Multiple Allergy Shot Completed Administrat 12/04/2011 79567 Multiple Allergy Shot Completed Administrat 11/27/2011 59090 Multiple Allergy Shot Completed Administrat 11/20/2011 53204 Multiple Allergy Shot Completed Administrat 11/13/2011 45106 Multiple Allergy Shot Completed Administrat 11/06/2011 28353 Multiple Allergy Shot Completed Administrat 10/26/2011 31205 Multiple Allergy Shot Completed Administrat 10/19/2011 58029 Multiple Allergy Shot Completed Administrat 10/10/2011 24889 Multiple Allergy Shot Completed Administrat Encounters Type Date Location Provider CPT E/M Dx Office Visit 11/17/2017 9:00a Main Office Nany Portillo M.D., 01546 S20.361A RMichael Office Visit 10/15/2017 10:15a Main Office Elise Prieto M.D. G0438 Z00.00 E03.9 M85.80 M25.552 M25.549 R53.83 Z51.89 Office Visit 06/12/2017 1:30p Main Office Elise Prieto M.D. 38996 R00.2 S20.361D Z11.59 Z51.89 Office Visit 03/28/2017 3:15p Main Office Vanessa Kennedy [facility] 16431 S20.361A Office Visit 10/09/2016 11:45a Main Office Vanessa Kennedy [facility] 96993 R21 Office Visit 03/28/2016 10:30a Main Office Vanessa Kennedy [facility] 62783 N39.0 Office Visit 11/09/2015 2:30p Main Office Tim Grajedamag BARROS [facility] 47881 R53.83 M25.569 K59.00 Office Visit 09/02/2015 3:15p [place] [address] J01.90 Office Visit 07/21/2015 11:30a Main Office Elise Prieto M.D. 82495 J18.9 Office Visit 07/19/2015 11:45a Main Office Elise Prieto M.D. 50850 J06.9 Office Visit 03/30/2015 12:00p Main Office Elise Prieto M.D. 13493 Z82.49 Z00.01 E03.9 Z79.890 M79.1 Z82.49 Z23 Office Visit 11/25/2014 9:45a Main Office Vanessa Kennedy [facility] 46370 V07.1 782.9 786.2 Office Visit 11/11/2014 10:30a [facility] [address]07 782.9 Office Visit 11/06/2014 4:45p Main Office Vince Rivera [facility] 88484 786.2 Office Visit 04/18/2014 9:45a Main Office Janette Valerio M.D. 87877 466.0 Office Visit 04/14/2014 2:30p Main Office Vince Rivera [facility]- 87612 466.0 Office Visit 02/26/2014 11:30a Main Office Vince Rivera [facility] 16953 053.9 Office Visit 06/16/2013 9:15a Main Office Vanessa Kennedy [facility] 55189 465.9 Office Visit 02/24/2013 3:30p [facility] 92883 381.9 Office Visit 05/14/2010 11:15a Main Office Elise Prieto M.D. 73466 724.5 Office Visit 07/03/2009 10:30a Main Office Janette Valerio M.D. 27578 789.04 Office Visit 06/08/2009 8:45a Main Office Vince Rivera [facility] 24711 848.8 848.8 Office Visit 01/28/2009 2:45p Main Office Katelin Farrell F.N.P.C. 96819 465.9 Office Visit 06/28/2007 2:30p Main Office Vince Rivera [facility] 60324 382.9 Office Visit 02/21/2007 9:30a Main Office Vince Rivera [facility] 23898 381.04 309.9 Office Visit 11/24/2006 9:45a Main Office Katelin Farrell F.N.P.C. 69971 784.1 Office Visit 11/07/2006 12:45p Main Office Elise Prieto M.D. 63821 034.0 Office Visit 07/07/2006 11:15a Main Office Elise Prieto M.D. 74900 461.9 386.10 Office Visit 11/04/2004 4:00p Main Office Vanessa Piper M.D. 82614 386.10 Office Visit 06/18/2004 9:00a Main Office Shaun Israel M.D. 77979 595.0 Office Visit 02/02/2004 4:45p Main Office Vanessa Piper M.D. 09733 692.6 Office Visit 01/22/2003 4:30p Main Office Errol Barr M.D. 81807 789.01 Office Visit 12/24/2002 4:45p Main Office Janette Valerio M.D. 46319 372.30 Office Visit 11/19/2002 10:00a Main Office Elise Prieto M.D. 84791 780.79 V18.0 368.9 Office Visit 12/17/2001 5:20p Main Office Vanessa Piper M.D. 98341 682.3 Office Visit 09/03/2001 10:00a Main Office Elise Prieto M.D. 64897 465.9 Plan of Care Future Appointment(s):11/26/2017 11:00 am - Lab [facility] Office Services at Main [facility]/17/2017 - Nany Portillo M.D., R.D.S20.361A Insect bite (nonvenomous) of wilton schaeffer of thorax, init
--- NOTE | 2017-11-27 15:30 | RAD ---
Indication: Palpitations. Elevated heart rate. Comparison: June 27, 2017 Technique: Upright AP 1512 hours Report: No focal pulmonary lesion, compelling alveolar consolidation, pleural effusion, pneumothorax. Upper normal heart size. Unremarkable central pulmonary vasculature and mediastinal contours. Multiple old healed LEFT rib fractures noted. IMPRESSION: #. No evidence for acute intrathoracic disease.
[2017-11-27 15:42] LABS: ABS Basophils 0.1 10^3/ul (0-0.2); ABS Eosinophils 0.1 10^3/ul (0-0.6); ABS Lymphocytes 1.8 10^3/ul (1.0-4.8); ABS Monocytes 0.6 10^3/ul (0-0.8); ABS Neutrophils 4.2 10^3/ul (1.5-7.7); ABS Nucleated RBC 0 10^3/ul; Eosinophil % 1.9 % (0-6); Hematocrit 40 % (35-47); Hemoglobin 13.8 g/dl (12.0-16.0); Lymphocyte % 26.8 % (25-47); Mean Corpuscular HGB Conc 35 g/dl (31-36); Mean Corpuscular Hemoglobin 31 pg (27-31); Mean Corpuscular Volume 89 fL (80-97); Mean Platelet Volume 8.9 um3 (7.4-10.4); Nucleated Red Blood Cells % 0.1; Platelet Count 261 10^3/ul (150-450); Red Blood Count 4.45 10^6/ul (4.00-5.40); Red Cell Distribution Width 13 % (10.5-15); White Blood Count 6.9 10^3/ul (3.5-10.8)
[2017-11-27 15:53] LABS: INR 0.92 (0.77-1.02)
[2017-11-27 16:03] LABS: EGFR Non-African American 77.3 (>60)
[2017-11-27 16:27] VITALS: BP 127/63
[2017-11-27 16:32] LABS: Urine Appearance Clear; Urine Blood Negative (Negative); Urine Color Straw; Urine Ketones Negative (Negative); Urine Protein Negative (Negative); Urine Specific Gravity 1.004 (1.010-1.030); Urine Urobilinogen Negative (Negative)
--- NOTE | 2017-11-27 21:32 | ED ---
Ignacio Mccord Angela, scribed for Derrick Winters MD on 11/27/17 at 1519 . Dizziness - HPI Summary HPI Summary: This pt is a 67 y/o female presenting to [facility] via EMS from [facility] for dizziness and palpitations today. Pt reports she was pumping gas this morning when she suddenly felt dizzy and thought she was going to pass out. Pt notes she went to her car and felt palpitations, characterized as fast and described as "it felt like it was pounding out of my chest." Denies chest pain, SOB, nausea, vomiting. She went to [facility] where she had an EKG and was referred to the ED. Currently pt reports feeling better. Pt did eat today, she had hot chocolate, a piece of toast, coffee, protein bar, and banana. She has had these episodes happen before in the past. She has seen Dr. Lambert, armature tester, who did a stress test that resulted normal. Pt reports Dr. Lambert is thinking of placing her in an event monitor. PMHx includes thyroid disease. Pt drinks wine every day. Denies tobacco use. - History Of Current Complaint Chief Complaint: EDDysrhythmPalp Stated Complaint: HIGH HR Time Seen by Provider: 11/27/17 15:09 Hx Obtained From: Patient Onset/Duration: Resolved, Suddenly Timing: Hours Severity Initially: Moderate Severity Currently: None Character: Lightheaded, Dizzy Aggravating Factor(s): Nothing Alleviating Factor(s): Nothing Associated Signs And Symptoms: Positive: Palpitations. Negative: Nausea, Vomiting, Chest Pain, SOB, Fever, Chills - Allergies/Home Medications Allergies/Adverse Reactions: Allergies Allergy/AdvReac Type Severity Reaction Status Date / Time alcaftadine [From Lastacaft] Allergy Dry Eyes Verified 11/27/17 15:09 alosetron [From Lotronex] Allergy Dry Eyes Verified 11/27/17 15:09 beclomethasone [From Qvar] Allergy Leg Cramps Verified 11/27/17 15:09 budesonide [From Symbicort] Allergy Leg Cramps Verified 11/27/17 15:09 formoterol [From Symbicort] Allergy Leg Cramps Verified 11/27/17 15:09 Home Medications: Home Medications Albuterol HFA INHALER* [Ventolin HFA Inhaler*] 2 puff INH Q4H PRN 11/27/17 [ History Confirmed 11/27/17] Balanced Salt Soln Non-Surg 6 [Eye Wash] 15 ml BOTH EYES TID PRN 11/27/17 [ History Confirmed 11/27/17] Cholecalciferol (Vitamin D3) [Vitamin D3] 2,000 unit PO DAILY 11/27/17 [History Confirmed 11/27/17] Cyanocobalamin TAB* [Vitamin B12 TAB*] 1,000 mcg PO DAILY 11/27/17 [History Confirmed 11/27/17] Glycerin/Propylene Glycol [Soothe] 1 misael BOTH EYES QID 11/27/17 [History Confirmed 11/27/17] L.acidoph,Paracasei, B.lactis [Probiotic] 1 cap PO DAILY 11/27/17 [History Confirmed 11/27/17] Levothyroxine TAB* [Synthroid TAB*] 75 mcg PO QAM 11/27/17 [History Confirmed ] Lysine 1,000 mg PO QAM 11/27/17 [History Confirmed 11/27/17] Mometasone 110 MCG MDI * [Asmanex 110 MCG MDI *] 2 puff INH BID 11/27/17 [ History Confirmed 11/27/17] Sodium Chloride [Ra Saline Nasal [place]] 0.65 % BOTH NARES QAM 11/27/17 [History Confirmed 11/27/17] PMH/Surg Hx/FS Hx/Imm Hx Endocrine/Hematology History: Reports: Hx Thyroid Disease Denies: Hx Diabetes Cardiovascular History: Denies: Hx Hypertension, Hx Pacemaker/ICD Respiratory History: Reports: Hx Asthma, Other Respiratory Problems/Disorders - SEASONAL ALLERGIES W/COUGH History: Denies: Hx Renal Disease Musculoskeletal History: Denies: Hx Rheumatoid Arthritis, Hx Osteoporosis - OSTEOPENIA Sensory History: Denies: Hx Hearing Aid Psychiatric History: Denies: Hx Panic Disorder - Cancer History Hx Chemotherapy: No Hx Radiation Therapy: No - Surgical History Surgery Procedure, Year, and Place: TONSILECTOMY. ECTOPIC PRENANCY -1975. Lt [place] -ARTHROSCOPIC. CATARACT -TERRI. 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 Negative: Chest Pain Negative: Shortness Of Breath Negative: Vomiting, Nausea Neurological: Other - POS: dizziness All Other Systems Reviewed And Are Negative: Yes Physical Exam - Summary Physical Exam Summary: Appearance: Well appearing, no pain distress Skin: warm, dry, mildly pallor. Head/face: normal Eyes: EOMI, LORA ENT: normal Neck: supple, non-tender Respiratory: CTA, breath sounds present Cardiovascular: RRR, pulses symmetrical Abdomen: non-tender, soft Bowel: present Musculoskeletal: normal, strength/ROM intact Neuro: normal, sensory motor intact, A&Ox3 Triage Information Reviewed: Yes Vital Signs On Initial Exam: Initial Vitals Pulse Resp BP Pulse Ox 88 21 120/73 98 11/27/17 14:44 11/27/17 14:44 11/27/17 14:44 11/27/17 14:44 Vital Signs Reviewed: Yes Diagnostics - Vital Signs Vital Signs Temp Pulse Resp BP Pulse Ox 11/27/17 15:15 92 11/27/17 15:06 82 95 11/27/17 14:56 98.3 F 93 18 120/73 98 11/27/17 14:44 88 21 120/73 98 - Laboratory Lab Results: Lab Results 11/27/17 11/27/17 11/27/17 Range/Units 15:27 15:27 15:27 WBC 6.9 (3.5-10.8) 10^3/ul RBC 4.45 (4.00-5.40) 10^6/ul Hgb 13.8 (12.0-16.0) g/dl Hct 40 (35-47) % MCV 89 (80-97) fL MCH 31 (27-31) pg MCHC 35 (31-36) g/dl RDW 13 (10.5-15) % Plt Count 261 (150-450) 10^3/ul MPV 8.9 (7.4-10.4) um3 Neut % (Auto) 60.5 (38-83) % Lymph % (Auto) 26.8 (25-47) % [place] % (Auto) 9.5 H (0-7) % Eos % (Auto) 1.9 (0-6) % Baso % (Auto) 1.3 (0-2) % Absolute Neuts (auto) 4.2 (1.5-7.7) 10^3/ul Absolute Lymphs (auto) 1.8 (1.0-4.8) 10^3/ul Absolute Monos (auto) 0.6 (0-0.8) 10^3/ul Absolute Eos (auto) 0.1 (0-0.6) 10^3/ul Absolute Basos (auto) 0.1 (0-0.2) 10^3/ul Absolute Nucleated RBC 0 10^3/ul Nucleated RBC % 0.1 INR (Anticoag Therapy) 0.92 (0.77-1.02) APTT 31.8 (26.0-36.3) seconds Sodium 139 (135-145) mmol/L Potassium 4.3 (3.5-5.0) mmol/L Chloride 102 (101-111) mmol/L Carbon Dioxide 31 (22-32) mmol/L Anion Gap 6 (2-11) mmol/L BUN 16 (6-24) mg/dL Creatinine 0.75 (0.51-0.95) mg/dL Est GFR ( Amer) 93.5 (>60) Est GFR (Non-Af Amer) 77.3 (>60) BUN/Creatinine Ratio 21.3 H (8-20) Glucose 87 (70-100) mg/dL Lactic Acid (0.5-2.0) mmol/L Calcium 9.8 (8.6-10.3) mg/dL Total Bilirubin 0.30 (0.2-1.0) mg/dL AST 19 (13-39) U/L ALT 16 (7-52) U/L Alkaline Phosphatase 55 (34-104) U/L Total Creatine Kinase 61 (10-223) U/L Troponin I 0.00 (<0.04) ng/mL B-Natriuretic Peptide ( - 100) pg/mL Total Protein 6.8 (6.4-8.9) g/dL Albumin 4.2 (3.2-5.2) g/dL Globulin 2.6 (2-4) g/dL Albumin/Globulin Ratio 1.6 (1-3) TSH 1.10 (0.34-5.60) mcIU/mL Urine Color Urine Appearance Urine pH (5-9) Ur Specific [place] (1.010-1.030) Urine Protein (Negative) Urine Ketones (Negative) Urine Blood (Negative) Urine Nitrate (Negative) Urine Bilirubin (Negative) Urine Urobilinogen (Negative) Ur Leukocyte Esterase (Negative) Urine Glucose (Negative) 11/27/17 11/27/17 11/27/17 Range/Units 15:27 15:27 16:03 WBC (3.5-10.8) 10^3/ul RBC (4.00-5.40) 10^6/ul Hgb (12.0-16.0) g/dl Hct (35-47) % MCV (80-97) fL MCH (27-31) pg MCHC (31-36) g/dl RDW (10.5-15) % Plt Count (150-450) 10^3/ul MPV (7.4-10.4) um3 Neut % (Auto) (38-83) % Lymph % (Auto) (25-47) % [place] % (Auto) (0-7) % Eos % (Auto) (0-6) % Baso % (Auto) (0-2) % Absolute Neuts (auto) (1.5-7.7) 10^3/ul Absolute Lymphs (auto) (1.0-4.8) 10^3/ul Absolute Monos (auto) (0-0.8) 10^3/ul Absolute Eos (auto) (0-0.6) 10^3/ul Absolute Basos (auto) (0-0.2) 10^3/ul Absolute Nucleated RBC 10^3/ul Nucleated RBC % INR (Anticoag Therapy) (0.77-1.02) APTT (26.0-36.3) seconds Sodium (135-145) mmol/L Potassium (3.5-5.0) mmol/L Chloride (101-111) mmol/L Carbon Dioxide (22-32) mmol/L Anion Gap (2-11) mmol/L BUN (6-24) mg/dL Creatinine (0.51-0.95) mg/dL Est GFR ( Amer) (>60) Est GFR (Non-Af Amer) (>60) BUN/Creatinine Ratio (8-20) Glucose (70-100) mg/dL Lactic Acid 1.1 (0.5-2.0) mmol/L Calcium (8.6-10.3) mg/dL Total Bilirubin (0.2-1.0) mg/dL AST (13-39) U/L ALT (7-52) U/L Alkaline Phosphatase (34-104) U/L Total Creatine Kinase (10-223) U/L Troponin I (<0.04) ng/mL B-Natriuretic Peptide 52 ( - 100) pg/mL Total Protein (6.4-8.9) g/dL Albumin (3.2-5.2) g/dL Globulin (2-4) g/dL Albumin/Globulin Ratio (1-3) TSH (0.34-5.60) mcIU/mL Urine Color Straw Urine Appearance Clear Urine pH 7.0 (5-9) Ur Specific [place] 1.004 L (1.010-1.030) Urine Protein Negative (Negative) Urine Ketones Negative (Negative) Urine Blood Negative (Negative) Urine Nitrate Negative (Negative) Urine Bilirubin Negative (Negative) Urine Urobilinogen Negative (Negative) Ur Leukocyte Esterase Negative (Negative) Urine Glucose Negative (Negative) Result Diagrams: 11/27/17 15:27 11/27/17 15:27 Lab Statement: Any lab studies that have been ordered have been reviewed, and results considered in the medical decision making process. - Radiology Chest XR Xray Interpretation: No Acute Changes - IMPRESSION: No evidence for acute intrathoracic disease. Dr. Winters has reviewed this report. Radiology Interpretation Completed By: Radiologist - EKG 14:52 Cardiac Rate: NL - at 80 bpm EKG Rhythm: Sinus Rhythm ST Segment: Normal Ectopy: None EKG Interpretation: No ectopy or arrhythmia. Normal axis. Re-Evaluation - Re-Evaluation First Eval Change: Improved - Symptoms resolved Dizzy Course/Dx - Course Course Of Treatment: Patient with a history of syncope or near-syncope of unknown etiology. Today with near-syncope and heart beating faster. This all resolved by the time she came here. She is feeling well now. Laboratories, EKG and troponin all negative. Discharged to follow-up with her armature tester for likely event monitor. - Diagnoses Differential Diagnosis/HQI/PQRI: Other - Orthostasis, vagal syndrome, arrhythmia , vertigo Provider Diagnoses: Near syncope Discharge - Sign-Out/Discharge Documenting (check all that apply): Discharge/Admit/Transfer - Discharge - Discharge Plan Condition: Improved Disposition: HOME Patient Education Materials: Near Syncope (ED) Referrals: Joe Lambert MD [Medical Doctor] - Elise Prieto MD [Primary Care Provider] - Additional Instructions: Stay well-hydrated. Sit or lie down if he feels like going to pass out. Return with palpitations, chest pains, new symptoms, worse or other concerns. You may need to have an outpatient event monitor performed. See your armature tester for this. - Billing Disposition and Condition Condition: IMPROVED Disposition: Home The documentation as recorded by the Ignacio french Angela accurately reflects the service I personally performed and the decisions made by me, Derrick Winters MD.
== END 2017-11-27 16:30 | disposition home or self-care (01) ==
LOC: ED 14:33
DX: R55 Syncope and collapse (principal); R00.2 Palpitations; R42 Dizziness and giddiness
CPT/HCPCS: 36415; 71045; 80053; 81003; 82550; 83605; 83880; 84443; 84484; 85025; 85610; 85730; 93005; 99283

== ENCOUNTER 2022-05-04 12:01 | Inpatient (IN) ==
[2022-05-04] MEDS ORDERED: Dexamethasone IV 4 MG/ML VIAL 1 ml VIAL IV SLOW PU ONE (12:50)
[2022-05-04] MEDS ORDERED: guaiFENesin/CODIENE 100mg/10mg 5 ML UDC PO ONE (12:50)
[2022-05-04] MEDS ORDERED: Albuterol HFA INHALER 8 gm MDI INH ONE (12:50)
[2022-05-04 13:43] LABS: Hematocrit 34 % (35-47); Hemoglobin 11.6 g/dL (12.0-16.0); Mean Corpuscular HGB Conc 34 g/dL (31-36); Mean Corpuscular Hemoglobin 30 pg (27-31); Mean Corpuscular Volume 88 fL (80-97); Mean Platelet Volume 8.3 fL (7.4-10.4); Platelet Count 154 10^3/uL (150-450); Red Blood Count 3.91 10^6 /uL (3.70-4.87); Red Cell Distribution Width 14 % (10-15); White Blood Count 7.6 10^3/uL (3.5-10.8)
[2022-05-04 14:28] LABS: Albumin 2.8 g/dL (3.2-5.2); Albumin/Globulin Ratio 1.3 (1-3); Calcium 7.3 mg/dL (8.6-10.3); Globulin 2.1 g/dL (2-4); Potassium 3.8 mmol/L (3.5-5.0); Total Bilirubin 0.5 mg/dL (0.2-1.0); Total Protein 4.9 g/dL (6.4-8.9); eGFR CKD-EPI 102.2 (>60)
[2022-05-04 14:50] LABS: RBC Morphology Normal (Normal)
[2022-05-04 14:51] LABS: ABS Basophils 0.1 10^3/ul (0-0.2); ABS Lymphocytes 3.4 10^3/ul (1.0-4.8); ABS Monocytes 0.7 10^3/ul (0-0.8); ABS Neutrophils 3.4 10^3/ul (1.5-7.7); Eosinophil % 0.3 %; Lymphocyte % 45.1 %; Nucleated Red Blood Cells % 0.2
[2022-05-04 15:05] LABS: High Sensitivity Troponin 1 Hr 3 pg/mL (<15)
[2022-05-05] MEDS ORDERED: Dextran 70/Hypromellose Tears Eye Drops 15 ml BTL (for Artificials Tears) BOTH EYES PRN (05:03)
[2022-05-05 05:35] LABS: ABS Basophils 0.1 10^3/ul (0-0.2); ABS Lymphocytes 2.8 10^3/ul (1.0-4.8); ABS Monocytes 0.5 10^3/ul (0-0.8); ABS Neutrophils 3.7 10^3/ul (1.5-7.7); Eosinophil % 0.1 %; Hematocrit 35 % (35-47); Hemoglobin 11.9 g/dL (12.0-16.0); Mean Corpuscular HGB Conc 34 g/dL (31-36); Mean Corpuscular Hemoglobin 30 pg (27-31); Mean Corpuscular Volume 89 fL (80-97); Mean Platelet Volume 8.1 fL (7.4-10.4); Nucleated Red Blood Cells % 0.3; Platelet Count 191 10^3/uL (150-450); Red Blood Count 4.01 10^6 /uL (3.70-4.87); Red Cell Distribution Width 14 % (10-15); White Blood Count 7.1 10^3/uL (3.5-10.8)
[2022-05-05 06:29] LABS: Calcium 7.7 mg/dL (8.6-10.3); Magnesium 2.2 mg/dL (1.9-2.7); Potassium 3.9 mmol/L (3.5-5.0); Total Bilirubin 0.4 mg/dL (0.2-1.0)
[2022-05-05 06:31] LABS: TSH Ultra Thyroid Stim Horm 0.33 mcIU/mL (0.34-5.60)
[2022-05-05 06:35] LABS: Albumin/Globulin Ratio 1.4 (1-3); Globulin 2.1 g/dL (2-4); Total Protein 5.1 g/dL (6.4-8.9); eGFR CKD-EPI 102.8 (>60)
[2022-05-05 06:44] LABS: Osmolality Serum 275 mOsm/kg (275-295)
[2022-05-05] MEDS: Enoxaparin 40 MG/0.4 ML SYR SUBCUT SCH (08:44)
[2022-05-05 09:26] LABS: Free T4 1.28 ng/dL (0.61-1.12)
[2022-05-05 09:53] LABS: Free T3 3.7 pg/mL (2.5-3.9)
[2022-05-05 10:15] LABS: C Reactive Protein 128.85 mg/L (<8.01); Digoxin 0.4 ng/ml (0.8-2.0)
[2022-05-05] MEDS: methylPREDNISolone SOD SUCC 40 mg/ml 1 ml VIAL IV SCH (11:46)
[2022-05-05] MEDS: Azithromycin 500 mg/250 ml NS 500 MG/250 ML BAG IVPB SCH (14:11)
[2022-05-05] MEDS ORDERED: Albuterol HFA INHALER 8 gm MDI INH PRN (17:17)
[2022-05-05] MEDS: Benzocaine/Menthol LOZ PO PRN (17:50)
[2022-05-05] MEDS: FLUTICAS/UMECLI/VILANT 100-62.5-25 MDI (NF) INH SCH (18:23)
[2022-05-06] MEDS: Enoxaparin 40 MG/0.4 ML SYR SUBCUT SCH (05:27)
[2022-05-06 07:37] LABS: Albumin 3.1 g/dL (3.2-5.2); Albumin/Globulin Ratio 1.6 (1-3); Calcium 8.2 mg/dL (8.6-10.3); Potassium 4.1 mmol/L (3.5-5.0); Total Bilirubin 0.4 mg/dL (0.2-1.0); Total Protein 5.1 g/dL (6.4-8.9); eGFR CKD-EPI 101.2 (>60)
[2022-05-06] MEDS: FLUTICAS/UMECLI/VILANT 100-62.5-25 MDI (NF) INH SCH (07:41)
[2022-05-06] MEDS: methylPREDNISolone SOD SUCC 40 mg/ml 1 ml VIAL IV SCH (09:02)
[2022-05-06] MEDS: Azithromycin 500 mg/250 ml NS 500 MG/250 ML BAG IVPB SCH (11:33)
[2022-05-06] MEDS: Benzocaine/Menthol LOZ PO PRN ×2 (12:15→16:28)
[2022-05-07] MEDS: Enoxaparin 40 MG/0.4 ML SYR SUBCUT SCH (05:48)
[2022-05-07] MEDS: FLUTICAS/UMECLI/VILANT 100-62.5-25 MDI (NF) INH SCH (07:25)
[2022-05-07 07:55] LABS: Albumin 3.5 g/dL (3.2-5.2); Albumin/Globulin Ratio 1.5 (1-3); Calcium 8.5 mg/dL (8.6-10.3); Globulin 2.4 g/dL (2-4); Potassium 4.2 mmol/L (3.5-5.0); Total Bilirubin 0.5 mg/dL (0.2-1.0); Total Protein 5.9 g/dL (6.4-8.9); eGFR CKD-EPI 97.1 (>60)
[2022-05-07] MEDS: Benzocaine/Menthol LOZ PO PRN ×3 (08:17→21:57)
[2022-05-07] MEDS: methylPREDNISolone SOD SUCC 40 mg/ml 1 ml VIAL IV SCH (08:17)
[2022-05-07] MEDS: guaiFENesin/CODIENE 100mg/10mg 5 ML UDC PO PRN ×2 (10:33→16:48)
[2022-05-07 12:22] LABS: Hepatitis B Surface Antigen Nonreactive (Nonreactive)
[2022-05-07 12:28] LABS: Hepatitis A Ab IgM Negative (Negative); Hepatitis B Core IgM Nonreactive (Nonreactive)
[2022-05-07] MEDS: Azithromycin 500 mg/250 ml NS 500 MG/250 ML BAG IVPB SCH (12:32)
[2022-05-07 12:40] LABS: Hepatitis C Antibody Negative (Negative)
[2022-05-08] MEDS: Enoxaparin 40 MG/0.4 ML SYR SUBCUT SCH (05:35)
[2022-05-08] MEDS: guaiFENesin/CODIENE 100mg/10mg 5 ML UDC PO PRN ×2 (05:35→11:40)
[2022-05-08 06:24] LABS: Hematocrit 36 % (35-47); Hemoglobin 12.2 g/dL (12.0-16.0); Mean Corpuscular HGB Conc 34 g/dL (31-36); Mean Corpuscular Hemoglobin 30 pg (27-31); Mean Corpuscular Volume 88 fL (80-97); Mean Platelet Volume 7.4 fL (7.4-10.4); Platelet Count 314 10^3/uL (150-450); Red Cell Distribution Width 14 % (10-15); White Blood Count 10.1 10^3/uL (3.5-10.8)
[2022-05-08 06:41] LABS: Albumin 3.1 g/dL (3.2-5.2); Albumin/Globulin Ratio 1.3 (1-3); Calcium 8.3 mg/dL (8.6-10.3); Globulin 2.3 g/dL (2-4); Potassium 4.2 mmol/L (3.5-5.0); Total Bilirubin 0.4 mg/dL (0.2-1.0); Total Protein 5.4 g/dL (6.4-8.9); eGFR CKD-EPI 95.5 (>60)
[2022-05-08] MEDS: Benzocaine/Menthol LOZ PO PRN ×2 (08:27→15:30)
[2022-05-08] MEDS: methylPREDNISolone SOD SUCC 40 mg/ml 1 ml VIAL IV SCH (08:28)
[2022-05-08] MEDS ORDERED: Furosemide 20 mg/2 ml IV VIAL IV ONE (09:21)
[2022-05-08 11:56] VITALS: BP 138/74
== END 2022-05-08 16:00 | disposition home or self-care (01) | DRG 149 ==
LOC: ED 12:01 → EDHOLD 12:01 → SUATTDRO 05-05 02:41 → EDHOLD 05-05 16:23 → MEDTELE 05-05 16:45
PROVIDERS: ADMIT Internal Medicine; ATTEND Internal Medicine

== ENCOUNTER 2023-12-23 09:42 | Observation (INO) ==
[2023-12-23 12:17] LABS: Hemoglobin 14.5 g/dL (11.5-14.3); Mean Corpuscular Hemoglobin 30.3 pg (27-33); Mean Corpuscular Hgb Conc 33.8 g/dL (31-36); Mean Corpuscular Volume 89.6 fL (80-97); Platelet Count 410 10^3/uL (150-450); Red Blood Count 4.79 10^6/uL (3.63-4.92); Red Cell Distribution Width 13.2 % (12-17); White Blood Count 13.8 10^3/uL (3.8-11.8)
[2023-12-23 12:21] LABS: ABS Basophils 0.1 10^3/uL (0.0-0.1); ABS Eosinophils 0.4 10^3/uL (0.0-0.5); ABS Lymphocytes 4.4 10^3/uL (1.0-4.8); ABS Monocytes 1.8 10^3/uL (0.0-0.9); ABS Neutrophils 7.1 10^3/uL (1.5-7.6); ABS Nucleated RBC 0.01 10^3/ul; Eosinophil % 2.9 %
[2023-12-23 12:24] LABS: Urine Appearance Clear; Urine Bilirubin Negative (Negative); Urine Blood Negative (Negative); Urine Color Light-Yellow; Urine Glucose Negative (Negative); Urine Ketones Negative (Negative); Urine Nitrite Negative (Negative); Urine Protein Negative (Negative); Urine Specific Gravity 1.013 (1.002-1.030); Urine Urobilinogen Negative (Negative); Urine pH 6.5 (5.0-8.0)
[2023-12-23 12:36] LABS: Urine Benzodiazepine Screen None Detected (None Detect); Urine Cannabinoids Screen None Detected (None Detect); Urine Opiates Screen None Detected (None Detect)
[2023-12-23 12:58] LABS: ALT 28 U/L (7-52); AST 26 U/L (13-39); Acetaminophen < 15 mcg/mL; Albumin 4.8 g/dL (3.2-5.2); Albumin/Globulin Ratio 1.9 (1-3); Alcohol, S < 13 mg/dL (<13); Alkaline Phosphatase 72 U/L (35-149); Anion Gap 8 mmol/L (2-16); Blood Urea Nitrogen 20 mg/dL (6-24); CO2 Carbon Dioxide 32 mmol/L (22-32); Calcium 10.2 mg/dL (8.6-10.3); Chloride 95 mmol/L (101-111); Creatinine, Serum 0.72 mg/dL (0.51-0.95); Globulin 2.5 g/dL (2-4); Glucose 89 mg/dL (70-100); Potassium 4.8 mmol/L (3.5-5.0); Salicylate < 2.50 mg/dL (<30); Sodium 135 mmol/L (135-145); Total Bilirubin 0.5 mg/dL (0.2-1.0); Total Protein 7.3 g/dL (6.4-8.9); eGFR CKD-EPI 88.8 (>60)
[2023-12-23 13:11] LABS: T4, Total 9.53 mcg/dL (6.09-12.23)
[2023-12-23 13:15] LABS: TSH Ultra Thyroid Stim Horm 4.34 mcIU/mL (0.34-5.60)
[2023-12-23 13:17] LABS: Free T4 0.94 ng/dL (0.61-1.12)
[2023-12-23] MEDS ORDERED: Lorazepam PYXIS KEY PRN (13:38)
[2023-12-23 13:41] LABS: High Sensitivity Troponin 1 Hr 14 pg/mL (<15)
[2023-12-23] MEDS: LORazepam 2 mg VIAL 1 ml IM ONE (13:53)
[2023-12-23] MEDS ORDERED: Albuterol HFA INHALER 8 gm MDI INH PRN (17:57)
[2023-12-23] MEDS: Lactated Ringers 1000 ml BAG 1,000 ML IV SCH (22:17)
[2023-12-23] MEDS: Enoxaparin 40 MG/0.4 ML SYR SUBCUT SCH (22:17)
[2023-12-24] MEDS: Benzocaine/Menthol LOZ PO PRN (05:11)
[2023-12-24 05:25] LABS: ABS Basophils 0.1 10^3/uL (0.0-0.1); ABS Eosinophils 0.8 10^3/uL (0.0-0.5); ABS Lymphocytes 2.8 10^3/uL (1.0-4.8); ABS Monocytes 0.9 10^3/uL (0.0-0.9); ABS Neutrophils 4.7 10^3/uL (1.5-7.6); ABS Nucleated RBC 0.01 10^3/ul; Eosinophil % 8.6 %; Hematocrit 36.7 % (35-45); Hemoglobin 12.7 g/dL (11.5-14.3); Lymphocyte % 29.8 %; Mean Corpuscular Hemoglobin 31.2 pg (27-33); Mean Corpuscular Hgb Conc 34.7 g/dL (31-36); Nucleated Red Blood Cells % 0.1 %/100WBC (0.0-0.8); Platelet Count 313 10^3/uL (150-450); Red Blood Count 4.08 10^6/uL (3.63-4.92); Red Cell Distribution Width 12.8 % (12-17); White Blood Count 9.3 10^3/uL (3.8-11.8)
[2023-12-24 06:01] LABS: Calcium 9.2 mg/dL (8.6-10.3); Creatinine, Serum 0.79 mg/dL (0.51-0.95); Potassium 4.5 mmol/L (3.5-5.0); eGFR CKD-EPI 79.4 (>60)
[2023-12-24] MEDS: Albuterol 2.5mg/3 ml (0.083%) NEB.SOLN INH ONE (12:04)
[2023-12-25] MEDS: Benzocaine/Menthol LOZ PO ONE (01:51)
[2023-12-26 10:02] VITALS: BP 132/73
== END 2023-12-26 10:31 | disposition home health service (06) ==
LOC: EDHOLD 09:42 → ED 09:42 → MEDTELE 18:03
PROVIDERS: ADMIT Family Medicine; ATTEND Internal Medicine